=== PATIENT | female | born 1945 | race Caucasian/White ===

== ENCOUNTER → 2017-11-06 14:00 | Outpatient (CLI) | payer MEDICARE, SELFPAY ==
--- NOTE | 2017-11-06 14:08 | RAD_ITS ---
STUDY: X-RAY CHEST REASON FOR EXAM: Female, 72 years old. Persistent cough, recent pneumonia, CABG, pacemaker, DC. TECHNIQUE: PA and lateral views of the chest. COMPARISON: 08/30/2017 FINDINGS: Stable significant elevation of the right hemidiaphragm and platelike atelectasis in the right base. There is a stable left subclavian approach multilead permanent pacemaker. There are areas of hyperinflation. Stable mild interstitial prominence. There is no demonstrated pleural abnormality. Sternal cerclage wires are present from a prior sternotomy. There is borderline cardiac size. Normal mediastinum and april. Normal visualized pulmonary arteries. There is atherosclerotic calcification of the aortic arch with tortuosity. There are diffuse degenerative changes of the visualized thoracic spine. There is demineralization of osseous structures. There is degenerative osteoarthritis of the bilateral shoulders. Status post vertebral body upper lumbar spine. Status postcholecystectomy. There is no demonstrated abnormality of the visualized soft tissue structures of the upper abdomen. RAD/Chest PA and Lateral IMPRESSION: No pulmonary edema, congestive heart failure or confluent pneumonia. Stable chronic interstitial lung disease, elevation right hemidiaphragm, platelike right basilar atelectasis, Cardiac size and postsurgical changes. Stable osteoporosis and degenerative changes, interval vertebroplasty of upper lumbar spine. Electronically Signed: Jacquie Paredes MD at 2:29 EST , Service support ,
[2017-11-06 16:05] LABS: Absolute Lymphocyte Count 1.12 X10^3/ul (0.83-4.51); Basophil# 0.03 X10^3/uL; Basophil% 0.5 % (0-1); Eosinophil# 0.08 X10^3/uL; Eosinophils% 1.4 % (0-5); Hematocrit 40.9 % (37-47); Hemoglobin 13.2 g/dl (12.0-15.0); Lymphocyte # 1.12 X10^3/ul (4.0); Mean Corp Hgb Conc 32.3 g/gl (32-36); Mean Corpuscular Hgb 29.9 pg (27.0-32.0); Mean Corpuscular Volume 92.7 fL (81-99); Mean Platelet Vol. 13.8 fl (6.2-12.0); Monocyte# 0.64 X10^3/uL; Monocyte% 10.9 % (0-10); Neutrophil # 4.01 X10^3/uL (2.7-7.7); Neutrophil % 68.2 % (47-70); Platelet Count 142 K/mm3 (150-450); RBC Distribution Width SD 46.2 fl (35.1-43.9); Red Blood Count 4.41 M/mm3 (4.2-5.4); White Blood Count 5.9 K/mm3 (4.4-11.0)
[2017-11-06 16:08] LABS: POSITIVE COUNT NO; POSITIVE DIFFERENTIAL NO; POSITIVE MORPHOLOGY NO
[2017-11-06 16:15] LABS: ALB/GLOB Ratio 0.8 RATIO (0.9-2.4); AST(SGOT) 24 U/L (15-37); Alanine Aminotransfer ALT/SGPT 18 U/L (13-56); Albumin, Serum 3.3 g/dL (3.2-5.0); Alkaline Phosphatase 81 U/L (45-117); Anion Gap 8 (5-15); BUN 14 mg/dL (7-18); BUN/Creat Ratio 17.8 RATIO (10-20); Calcium,Total 8.9 mg/dL (8.5-10.1); Chloride 100 mmol/L (98-107); Creatinine, Serum 0.79 mg/dL (0.55-1.02); EST Glomerular Filtration Rate 76 mL/min (>60); Est Glom Filt Rate - Afr Amer 92 mL/min (>60); Globulin 3.9 g/dL (2.2-4.2); Glucose 149 mg/dL (74-106); Potassium 4.1 mmol/L (3.5-5.1); Protein, Total 7.2 g/dL (6.4-8.2); Sodium Level 139 mmol/L (136-145); Thyroid Stim Hormone (TSH) 1.02 uIU/mL (0.358-3.74); Uric Acid 7.7 mg/dL (2.6-6.0)
== END ==
PROVIDERS: Family Provider Family Medicine Geriatric Medicine; PCP Family Medicine Geriatric Medicine; Visit Provider Family Medicine Geriatric Medicine
DX: R05 Cough (principal); E11.9 Type 2 diabetes mellitus without complications; E55.9 Vitamin D deficiency, unspecified; I10 Essential (primary) hypertension; M10.9 Gout, unspecified
CPT/HCPCS: 36415; 71046; 80053; 82306; 84443; 84550; 85025

== ENCOUNTER 2018-04-26 15:44 | Observation (INO) | payer MEDICARE, SELFPAY ==
[2018-04-26] VITALS (10 sets, daily range): BP systolic 105–118; BP diastolic 53–78; PULSE 71–88; RESP 16–17; TEMP 37.1–37.6; O2SAT 89–98; BMI 30.8; BMI 31.4
--- NOTE | 2018-04-26 16:08 | ED.VISSUMM ---
- ER Visit Summary Date of Service: 04/26/18 Chief Complaint: Fever History of Present Illness: The patient is a 72 F here with spouse for fever and chills starting today. Reports thermometer read 109 orally before noon. No Tylenol or Motrin was taken. Patient admits to mild productive cough starting yesterday. However 2 days ago nausea with headache symptoms. No falls or head injuries. No visual changes. Denies any vomiting. Chronic diarrhea. Sometimes 3-4 day, sometimes none. None recently. Decreased urine output. Tolerating oral fluids. No chest pains or abdominal pain. States mild achy joints and the hips. Patient is on warfarin for unclear reasons. She does have antiphospholipid, however no clotting history. History of AICD with heart failure and OR with CABG procedure. Patient normally ambulates with a cane, some other states needing more assistance over the last couple days. No falls or injuries. Physical Examination: Vitals: Temp 99.6, pulse 71, respirations 16, blood pressure 105/78, 98% on room air. General: Alert and oriented ?3, no acute distress HEENT: Normocephalic, atraumatic. Moist mucosa membranes Neck: supple, nontender. Cardiovascular: Regular rate and rhythm, no murmurs Respiratory: Normal breath sounds, symmetric, no distress Abdomen: Soft, nontender, nondistended Extremities: Nontender, no edema, pulses intact ?4 Neuro: no focal neurological deficits. Test Results: WBC 6.3 hemoglobin 14.8. Creatinine 0.81. INR 1.4. Liver enzymes normal. Urine 25 leukocytes, negative nitrites, negative WBCs. Chest x-ray negative. CTA chest negative for PE or infiltrates. Emergency Department Course and Treatment: Patient 99.6 temperature on arrival. Nontoxic. Pulse ox is 98% on room air. Workup initiated. White count 6.3. EKG paced rhythm rate of [address] or T-wave changes. Chest x-ray negative for infiltrates. However on monitoring patient oxygen dropped to 89% on room air before ambulation. Urine noted leukocytes however no others findings for concerns for infection, she has no urine symptoms. She was subtherapeutic on her INR. CTA of the chest obtained due to hypoxemia results negative also. She is ambulated her oxygen dropped to 84% per nursing. Replaced back on oxygen O2 stable, no respiratory distress. However due to her hypoxemia with her upper respiratory symptoms she will need admission for further management. Discuss with hospitalist Dr. Friedman for admission. She does not meet sepsis criteria. Treatment Plan: [] Disposition: Admission Impression: 1. Acute bronchitis 2. Hypoxemia This note was generated with [employer] dictation software. It may contain incorrect words, spelling, and punctuation that were not noted in review of the chart prior to signing ED Disposition - Plan for ED Patient: Disposition: Acute Care Hospital [facility] Chief Complaint: Fever Diagnosis: Acute bronchitis, Hypoxemia Referrals: Ranjan Hyatt Chi, MD [Primary Care Provider] -
[2018-04-26] MEDS: Ondansetron 4 MG/2 ML Vial IV (16:26)
[2018-04-26 16:31] LABS: Absolute Lymphocyte Count 0.46 X10^3/ul (0.83-4.51); Absolute Neutrophil Count 4.8 X10^3/uL (2.0-7.7); Basophil# 0.02 X10^3/uL; Basophil% 0.3 % (0-1); Differential Indicated SCAN CRITERIA MET; Eosinophil# 0.01 X10^3/uL; Eosinophils% 0.2 % (0-5); Hematocrit 43.1 % (37-47); Hemoglobin 14.8 g/dl (12.0-15.0); Lymphocyte # 0.46 X10^3/ul (4.0); Lymphocyte % 7.3 % (19-41); Mean Corp Hgb Conc 34.3 g/gl (32-36); Mean Corpuscular Hgb 29.5 pg (27.0-32.0); Mean Platelet Vol. 11.7 fl (6.2-12.0); Monocyte# 0.96 X10^3/uL; Monocyte% 15.3 % (0-10); Neutrophil # 4.82 X10^3/uL (2.7-7.7); Neutrophil % 76.7 % (47-70); POSITIVE COUNT NO; POSITIVE DIFFERENTIAL YES; POSITIVE MORPHOLOGY NO; Platelet Count 146 K/mm3 (150-450); RBC Distribution Width CV 15.2 % (11.6-14.6); RBC Distribution Width SD 47.9 fl (35.1-43.9); Red Blood Count 5.01 M/mm3 (4.2-5.4); White Blood Count 6.3 K/mm3 (4.4-11.0)
[2018-04-26 16:35] LABS: International Normalized Ratio 1.4; Prothrombin Time (Protime)PT. 17.5 SECONDS (11.7-14.9)
[2018-04-26 16:39] LABS: ALB/GLOB Ratio 0.8 RATIO (0.9-2.4); AST(SGOT) 31 U/L (15-37); Alanine Aminotransfer ALT/SGPT 21 U/L (13-56); Albumin, Serum 3.2 g/dL (3.2-5.0); Alkaline Phosphatase 100 U/L (45-117); Anion Gap 12 (5-15); BUN 20 mg/dL (7-18); BUN/Creat Ratio 24.6 RATIO (10-20); Calcium,Total 8.4 mg/dL (8.5-10.1); Chloride 96 mmol/L (98-107); Creatinine, Serum 0.81 mg/dL (0.55-1.02); EST Glomerular Filtration Rate 73 mL/min (>60); Est Glom Filt Rate - Afr Amer 89 mL/min (>60); Estimated Creatinine Clearance 46.68 ml/min; Globulin 3.9 g/dL (2.2-4.2); Glucose 104 mg/dL (74-106); Potassium 3.9 mmol/L (3.5-5.1); Protein, Total 7.1 g/dL (6.4-8.2); Sodium Level 135 mmol/L (136-145)
[2018-04-26 16:48] LABS: Differential Comment SCANNED
[2018-04-26 17:54] LABS: Mucous, Urine 0 SEEN /hpf (<or=2+); Red Blood Cells-Urine 0 SEEN /hpf (0-5)
[2018-04-26 18:12] LABS: Color, Urine Yellow (Yellow); Glucose, Dipstick Normal (Normal); Ketone-Dipstick Negative (Negative); Leukocyte Esterase-Dipstick 25 /ul (Negative); Nitrite-Dipstick Negative (Negative); Occult Blood-Urine 25 /ul (Negative); Protein-Dipstick 15 mg/dl (Negative); Urine Bilirubin Dipstick Negative (Negative); Urine Clarity Clear (Clear); Urine Urobilinogen 1 mg/dl (Normal)
[2018-04-26 18:33] LABS: Bacteria RARE /hpf (None Seen); Squamous Epithelial Cells - UA 0-5 SEEN /hpf (5-10); White Blood Cells 0-5 SEEN /hpf (0-5)
--- NOTE | 2018-04-26 19:55 | HP.PCM_ITS ---
Problem List (1) Acute bronchitis Status: Acute (2) Cardiac pacemaker Status: Chronic (3) Automatic implantable cardiac defibrillator in situ Status: Chronic (4) Acute kidney failure Status: Chronic (5) Atherosclerosis of coronary artery bypass graft without angina pectoris Status: Chronic Qualifiers: Comment: CABG: RIVERA-Distal LAD, SVG-Prox LAD, SVG-OM1, SVG-Left PDA 12/2001; (6) Ischemic cardiomyopathy Status: Chronic (7) Chest pain, precordial Status: Chronic (8) Chronic systolic congestive heart failure Status: Chronic (9) Dyspnea on exertion Status: Chronic (10) HLD (hyperlipidemia) Status: Chronic (11) HTN (hypertension) Status: Chronic (12) Myocardial infarction Status: Chronic (13) H/O coronary artery bypass surgery Status: Chronic Comment: CABG: RIVERA-Distal LAD, SVG-Prox LAD, SVG-OM1, SVG- Left PDA 12/2001; (14) Hypercoagulable state, primary Status: Chronic (15) RBBB (right bundle branch block) Status: Chronic (16) Heart failure with reduced ejection fraction Status: Chronic (17) NSTEMI (non-ST elevated myocardial infarction) Status: Chronic (18) Pneumococcal pneumonia Status: Chronic (19) Severe sepsis Status: Chronic (20) Diabetes mellitus type 2 in obese Status: Chronic (21) HTN (hypertension) Status: Chronic Qualifiers: (22) Hyperlipidemia Status: Chronic Qualifiers: (23) Obesity Status: Chronic Qualifiers: (24) GERD (gastroesophageal reflux disease) Status: Chronic (25) Anti-phospholipid syndrome Status: Chronic (26) CAD (coronary artery disease) Status: Chronic Comment: Status post CABG, status post cardiac catheterization in December 2013 - showing adequate revascularization and recommended medical management (27) Syncope Status: Chronic Comment: Consider to be arrhythmic in etiology; status post ICD (28) Ischemic cardiomyopathy Status: Chronic Comment: With ejection fraction 40 % (29) CHF (congestive heart failure) Status: Chronic (30) Shock, unspecified Status: Chronic Comment: etiology unknown (31) Compression fracture of L3 lumbar vertebra Status: Chronic (32) ATN (acute tubular necrosis) Status: Chronic (33) Community acquired pneumonia of right middle lobe of lung Status: Chronic (34) CHF exacerbation Status: Chronic History of Present Illness Date of Admission: 04/26/18 Chief Complaint: Cough and fever for 3 days The patient is a 72 year old F with history of coronary artery disease status post CABG, ischemic cardiomyopathy with chronic systolic heart rate status post AICD, hypertension, antiphospholipid syndrome on Coumadin came to ER with fever for last 3 days. Patient has chronic cough but gotten worse in the last 3 to 4 days along with increased yellow sputum. Patient noticed temperature at home 109? today before noon which seems surprising and unrealistic and came to ER. Patient has chronic sinus symptoms but denies sore throat or postnasal drip. Patient has history of antiphospholipid syndrome and on Coumadin. INR was found 1.4. Patient had CTPA which did not show any acute PE/consolidation but chronic elevation of right hemidiaphragm. EKG shows paced rhythm [] Past Medical History Past Medical History (Chronic Problems): Chronic Problems (Last Reviewed 04/01/18 @ 13:24 by Marco Antonio Gimenez MD) Cardiac pacemaker (Chronic) Automatic implantable cardiac defibrillator in situ (Chronic) Acute kidney failure (Chronic) Atherosclerosis of coronary artery bypass graft without angina pectoris (Chronic ) CABG: RIVERA-Distal LAD, SVG-Prox LAD, SVG-OM1, SVG-Left PDA 12/2001; Ischemic cardiomyopathy (Chronic) Chest pain, precordial (Chronic) Chronic systolic congestive heart failure (Chronic) Dyspnea on exertion (Chronic) HLD (hyperlipidemia) (Chronic) HTN (hypertension) (Chronic) Myocardial infarction (Chronic) H/O coronary artery bypass surgery (Chronic) CABG: RIVERA-Distal LAD, SVG-Prox LAD, SVG-OM1, SVG-Left PDA 12/2001; Hypercoagulable state, primary (Chronic) RBBB (right bundle branch block) (Chronic) Heart failure with reduced ejection fraction (Chronic) NSTEMI (non-ST elevated myocardial infarction) (Chronic) Pneumococcal pneumonia (Chronic) Severe sepsis (Chronic) Diabetes mellitus type 2 in obese (Chronic) HTN (hypertension) (Chronic) Hyperlipidemia (Chronic) Obesity (Chronic) GERD (gastroesophageal reflux disease) (Chronic) Anti-phospholipid syndrome (Chronic) CAD (coronary artery disease) (Chronic) Status post CABG, status post cardiac catheterization in December 2013 - showing adequate revascularization and recommended medical management Syncope (Chronic) Consider to be arrhythmic in etiology; status post ICD Ischemic cardiomyopathy (Chronic) With ejection fraction 40 % CHF (congestive heart failure) (Chronic) Shock, unspecified (Chronic) etiology unknown Compression fracture of L3 lumbar vertebra (Chronic) ATN (acute tubular necrosis) (Chronic) Community acquired pneumonia of right middle lobe of lung (Chronic) CHF exacerbation (Chronic) Medical History: Medical History (Last Reviewed 04/01/18 @ 13:24 by Marco Antonio Gimenez MD) Automatic implantable cardiac defibrillator in situ (Chronic) Z95.810 Acute kidney failure (Chronic) N17.9 Atherosclerosis of coronary artery bypass graft without angina pectoris (Chronic ) I25.810 CABG: RIVERA-Distal LAD, SVG-Prox LAD, SVG-OM1, SVG-Left PDA 12/2001; Ischemic cardiomyopathy (Chronic) I25.5 Chest pain, precordial (Chronic) R07.2 Chronic systolic congestive heart failure (Chronic) I50.22 Dyspnea on exertion (Chronic) R06.09 HLD (hyperlipidemia) (Chronic) E78.5 HTN (hypertension) (Chronic) I10 Myocardial infarction (Chronic) I21.9 Hypercoagulable state, primary (Chronic) D68.59 RBBB (right bundle branch block) (Chronic) I45.10 Allergies latex Allergy (Severe, Verified 04/01/18 13:09) Swelling Home Medications: Ambulatory Orders Medication Instructions Recorded Ergocalciferol [Vitamin D] 50,000 unit PO QMONTH 05/09/16 Insulin Glargine,Hum.rec.anlog 40 unit SQ QHS 05/09/16 [Lantus] lisinopril 5 mg tablet 5 mg PO QDAY 08/19/17 Allopurinol [Zyloprim] 100 mg PO DAILYCM 08/29/17 Metformin HCl 500 mg PO DAILY 08/29/17 nitroglycerin 0.4 mg sublingual 0.4 mg SUBLINGUAL Q5M PRN 09/20/17 tablet aspirin 81 mg tablet,delayed 81 mg PO QDAY 10/02/17 release pravastatin 40 mg tablet 40 mg PO DAILY tab 10/02/17 warfarin 6 mg tablet 4 mg PO ONCE 10/02/17 furosemide 40 mg tablet 40 mg PO BID 03/25/18 gabapentin 600 mg tablet 600 mg PO QDAY 04/01/18 isosorbide mononitrate ER 60 mg 120 mg PO DAILY #180 tab 04/01/18 tablet,extended release 24 hr metoprolol succinate ER 25 mg 25 mg PO BID tab 04/01/18 tablet,extended release 24 hr Surgical History: Surgical History (Last Reviewed 04/01/18 @ 13:24 by Marco Antonio Gimenez MD) H/O coronary artery bypass surgery (Chronic) Z95.1 CABG: RIVERA-Distal LAD, SVG-Prox LAD, SVG-OM1, SVG-Left PDA 12/2001; History of left heart catheterization (LHC) Z98.890 LHC: 12/2002; 09/2007; 10/2008; 12/19/2013 Surgical History: appendectomy, cholecystectomy, coronary bypass surgery, hysterectomy, pacemaker implantation Smoking Status: Never smoker - *Family History Maternal Family History: Family History (Last Reviewed 04/01/18 @ 13:24 by Marco Antonio Gimenez MD) Mother CAD (coronary artery disease) Myocardial infarction, Onset Age: 62 Brother Myocardial infarction CAD (coronary artery disease) Sister Bone cancer Sister CAD (coronary artery disease) Myocardial infarction Hypertension History Items: Heart Disease Paternal Family History: Family History (Last Reviewed 04/01/18 @ 13:24 by Marco Antonio Gimenez MD) Mother CAD (coronary artery disease) Myocardial infarction, Onset Age: 62 Brother Myocardial infarction CAD (coronary artery disease) Sister Bone cancer Sister CAD (coronary artery disease) Myocardial infarction Hypertension History Items: Heart Disease, - - Father with anti-phospholipid syndrome Sibling Family History: Family History (Last Reviewed 04/01/18 @ 13:24 by Marco Antonio Gimenez MD) Mother CAD (coronary artery disease) Myocardial infarction, Onset Age: 62 Brother Myocardial infarction CAD (coronary artery disease) Sister Bone cancer Sister CAD (coronary artery disease) Myocardial infarction Hypertension History Items: Cancer, Heart Disease, - Review of Systems Constitutional: Reports: Chills, Fever, Weakness. Denies: Weight Change HEENT: Denies: Head Aches, Sinus Congestion, Sinus Drainage Cardiovascular: Denies: Chest Pain, Palpitations Respiratory: Reports: Cough, Sputum production. Denies: Shortness of breath at rest Gastrointestinal: Denies: Abdominal Pain, Nausea, Vomiting Genitourinary: Denies: Dysuria, Frequency, Hematuria, Hesitancy Musculoskeletal: Reports: Joint Pain. Denies: Joint Tenderness Skin: Denies: Rash, Wounds Neurological: Denies: Numbness, Tingling, Focal weakness Psychiatric: Reports: Anxiety. Denies: Depression, Homicidal Ideations, Suicidal Ideations Hematologic/ Lymphatic: Denies: Easy Bruising, Easy Bleeding VTE Information - Inpt Only VTE Present on Admission: No VTE Mechan Device Prophylaxis: None VTE Pharm Prophylaxis ordered?: Yes Patient Problems: Active and Suspected Problems (Last Reviewed 04/01/18 @ 13:24 by Marco Antonio Gimenez MD ) Acute bronchitis (Acute) - Physical Exam General: Alert, Oriented x3, Cooperative HEENT: Atraumatic, PERRLA, EOMI, Normocephalic Neck: Supple, No JVD, Negative Carotid Bruits Lungs: Clear to auscultation, No rhonchi, No rales, Diminished - On posterior half of right lung Cardiovascular: Regular rate, Normal S1, Normal S2, No murmurs, - - Paced rhythm Abdomen: Bowel Sounds Present, Soft, Non Tender, Non-Distended Extremities: No edema, Capillary Refill Less than 3 Seconds Skin: No rashes, No breakdown Musculoskeletal: No Tenderness to Palpation of Joints or Extremities, Arthritic Changes Neurological: Cranial nerves II-XII grossly intact Psych/Mental Status: Normal Affect, Appropriate Vital Signs Temp Pulse Resp BP Pulse Ox 99.6 F H 71 17 106/66 93 04/26/18 15:46 04/26/18 19:27 04/26/18 18:05 04/26/18 19:27 04/26/18 18:05 Oxygen Flow Rate (L/min) 2 Oxygen Delivery Method Nasal Cannula Weight: 163 lb Body Mass Index (BMI) 30.8 Finger Stick Blood Glucose 119 Laboratory Tests Past 24 Hrs 04/26/18 04/26/18 04/26/18 16:15 16:15 16:15 WBC 6.3 RBC 5.01 Hgb 14.8 Hct 43.1 MCV 86.0 MCH 29.5 MCHC 34.3 RDW 15.2 H RDW Differential 47.9 H Plt Count 146 L MPV 11.7 Immature Gran % (Auto) 0.200 Neut % (Auto) 76.7 H Lymph % (Auto) 7.3 L [place] % (Auto) 15.3 H Eos % (Auto) 0.2 Baso % (Auto) 0.3 Absolute Neuts (auto) 4.8 Absolute Lymphs (auto) 0.46 L Total Counted Not Reportable Differential Comment SCANNED PT 17.5 H INR 1.4 Sodium 135 L Potassium 3.9 Chloride 96 L Carbon Dioxide 27.0 Anion Gap 12 BUN 20 H Creatinine 0.81 Estim Creat Clear Calc 46.68 Est GFR (MDRD) Af Amer 89 Est GFR (MDRD) Non-Af 73 BUN/Creatinine Ratio 24.6 H Glucose 104 Calcium 8.4 L Total Bilirubin 1.40 H AST 31 ALT 21 Alkaline Phosphatase 100 Total Protein 7.1 Albumin 3.2 Globulin 3.9 Albumin/Globulin Ratio 0.8 L Urine Color Urine Clarity Urine pH Ur Specific [place] Urine Protein Urine Glucose (UA) Urine Ketones Urine Occult Blood Urine Nitrite Urine Bilirubin Urine Urobilinogen Ur Leukocyte Esterase Urine RBC Urine WBC Ur Squamous Epith Cells Urine Bacteria Urine Mucus 04/26/18 17:47 WBC RBC Hgb Hct MCV MCH MCHC RDW RDW Differential Plt Count MPV Immature Gran % (Auto) Neut % (Auto) Lymph % (Auto) [place] % (Auto) Eos % (Auto) Baso % (Auto) Absolute Neuts (auto) Absolute Lymphs (auto) Total Counted Differential Comment PT INR Sodium Potassium Chloride Carbon Dioxide Anion Gap BUN Creatinine Estim Creat Clear Calc Est GFR (MDRD) Af Amer Est GFR (MDRD) Non-Af BUN/Creatinine Ratio Glucose Calcium Total Bilirubin AST ALT Alkaline Phosphatase Total Protein Albumin Globulin Albumin/Globulin Ratio Urine Color Yellow Urine Clarity Clear Urine pH 7.0 Ur Specific [place] 1.010 Urine Protein 15 H Urine Glucose (UA) Normal Urine Ketones Negative Urine Occult Blood 25 H Urine Nitrite Negative Urine Bilirubin Negative Urine Urobilinogen 1 H Ur Leukocyte Esterase 25 H Urine RBC 0 SEEN Urine WBC 0-5 SEEN Ur Squamous Epith Cells 0-5 SEEN Urine Bacteria RARE Urine Mucus 0 SEEN Assessment/Plan All Active Problems (Last Reviewed 04/01/18 @ 13:24 by Marco Antonio Gimenez MD) Acute bronchitis (Acute) The patient is a 72 year old F with history of coronary artery disease status post CABG, ischemic cardiomyopathy with chronic systolic heart rate status post AICD, hypertension, antiphospholipid syndrome on Coumadin came to ER with fever for last 3 days. Patient has chronic cough but gotten worse in the last 3 to 4 days along with increased yellow sputum. Patient noticed temperature at home 109? today before noon which seems surprising and unrealistic and came to ER. Patient has chronic sinus symptoms but denies sore throat or postnasal drip. Patient has history of antiphospholipid syndrome and on Coumadin. INR was found 1.4. Patient had CTPA which did not show any acute PE/consolidation but chronic elevation of right hemidiaphragm. EKG shows paced rhythm 1. Fever with chills, possible secondary to acute bronchitis, viral/bacterial or noninfectious: The patient is being admitted as an observation. IV fluid normal saline. Monitor temperature curve. Started on IV Zithromax. If she spikes fever, blood cultures ?2 and add ceftriaxone. Monitor intake and output. Urinary antigens ordered. Flu test, MRSA nasal screen ordered. ESR and CRP ordered. INR is subtherapeutic so there is chance she might have DVT as cause of fever. Bilateral lower extremity venous Doppler ordered. 2. Antiphospholipid syndrome on Coumadin: Lovenox 1 mg/kg body weight as bridging until her INR is 2.5. 3. chronic systolic heart failure, with ischemic cardiomyopathy Patient has history of coronary artery disease with ischemic cardiomyopathy, EF 40% status post AICD. Patient had last echo in August 2017 shows EF 20%. Normal LV size. 1-2+ TR. Severe segmental systolic dysfunction significant decline in LV function as compared to previous Echo in December 2016 mild concentric LVH with EF 45%. No regional wall motion abnormalities. Being managed by Dr. gimenez continue cardiac medications 4 Coronary artery disease status post CABG, last cardiac cath in December 2013 showing adequate revascularization and on medical management.: Continue home medication 5. Diabetes mellitus type 2, good glycemic control complicated with diabetic neuropathy: On Lantus 40 units subcu nightly daily. Accu-Chek before meals and at bedtime and cover with NovoLog sliding scale. other chronic comorbidities including hypertension, dyslipidemia, GERD, and morbid obesity: Home medication reconciliation done. Code Visit OBSV E&M: [id number] Initial observation care L3
[2018-04-26 20:04] LABS: Erythrocyte Sedimentation Rate 41 mm/hr (0-30)
[2018-04-26] MEDS: 0.9% Normal Saline 1,000 ML 75 ML IV (23:01)
[2018-04-26] MEDS: Pravastatin 40 MG Tablet PO (23:02)
[2018-04-26] MEDS: guaiFENesin 1,200 MG Tablet 1200 MG PO (23:02)
[2018-04-26] MEDS: Aspirin E.C. 81 MG Tablet PO (23:02)
[2018-04-26] MEDS: Enoxaparin 80 MG/0.8 ML Syringe 70 MG SC (23:03)
[2018-04-26] MEDS: Famotidine 20 MG Tablet PO (23:11)
[2018-04-27] VITALS (8 sets, daily range): BP systolic 111–139; BP diastolic 64–84; PULSE 79–89; RESP 18; TEMP 36.6–37.6; O2SAT 93–98
[2018-04-27 00:15] LABS: Bedside Glucose 163 mg/dL (70-110)
[2018-04-27 02:10] LABS: M R Staph aureus DNA By PCR Negative (Negative); Probe Check PASS; Specimen Processing Control PASS
[2018-04-27] MEDS: 0.9% NaCl Peripheral Flush Adult/Peds IV (02:13)
[2018-04-27] MEDS: Ondansetron 4 MG/2 ML Vial IV (02:14)
[2018-04-27] MEDS: Enoxaparin 80 MG/0.8 ML Syringe 70 MG SC (06:11)
[2018-04-27 06:29] LABS: International Normalized Ratio 1.5
[2018-04-27 06:31] LABS: Basophil# 0.02 X10^3/uL; Basophil% 0.3 % (0-1); Eosinophil# 0.01 X10^3/uL; Eosinophils% 0.2 % (0-5); Hematocrit 42.3 % (37-47); Lymphocyte % 6.2 % (19-41); Mean Corp Hgb Conc 33.1 g/gl (32-36); Mean Corpuscular Hgb 28.7 pg (27.0-32.0); Mean Corpuscular Volume 86.7 fL (81-99); Mean Platelet Vol. 12.2 fl (6.2-12.0); Monocyte% 15.6 % (0-10); Neutrophil # 4.98 X10^3/uL (2.7-7.7); Neutrophil % 77.4 % (47-70); Platelet Count 126 K/mm3 (150-450); RBC Distribution Width CV 15.3 % (11.6-14.6); RBC Distribution Width SD 48.3 fl (35.1-43.9); Red Blood Count 4.88 M/mm3 (4.2-5.4); White Blood Count 6.4 K/mm3 (4.4-11.0)
[2018-04-27 06:34] LABS: POSITIVE COUNT NO; POSITIVE DIFFERENTIAL YES; POSITIVE MORPHOLOGY NO
[2018-04-27 06:36] LABS: Anion Gap 10 (5-15); BUN 16 mg/dL (7-18); BUN/Creat Ratio 21.8 RATIO (10-20); Calcium,Total 7.8 mg/dL (8.5-10.1); Chloride 100 mmol/L (98-107); Creatinine, Serum 0.73 mg/dL (0.55-1.02); EST Glomerular Filtration Rate 82 mL/min (>60); Est Glom Filt Rate - Afr Amer 100 mL/min (>60); Estimated Creatinine Clearance 37.81 ml/min; Glucose 107 mg/dL (74-106); Potassium 3.8 mmol/L (3.5-5.1); Sodium Level 135 mmol/L (136-145)
[2018-04-27 06:56] LABS: Bedside Glucose 91 mg/dL (70-110)
[2018-04-27 07:03] LABS: Differential Comment SCANNED; Differential Indicated SCAN CRITERIA MET
[2018-04-27] MEDS: Allopurinol 100 MG Tablet PO (08:11)
[2018-04-27] MEDS: Furosemide 40 MG Tablet PO (08:11)
[2018-04-27] MEDS: Acetaminophen 325 MG Tablet 650 MG PO (08:11)
--- NOTE | 2018-04-27 08:47 | CPS ---
Patient not interested in working on PEP therapy at this time.
--- NOTE | 2018-04-27 09:51 | PCM.PN.HOSP ---
Patient Problems: Active and Suspected Problems (Last Reviewed 04/01/18 @ 13:24 by Marco Antonio Sherwood MD) Acute bronchitis (Acute) Subjective: Just feeling weak but stated she was able to go to and from the bathroom without any difficulty. Vitals/I&O's: Vital Signs Temp Pulse Resp BP Pulse Ox 37.6 C H 84 18 139/84 H 98 04/27/18 08:44 04/27/18 08:44 04/27/18 08:44 04/27/18 08:44 04/27/18 08:44 Oxygen Flow Rate (L/min) 2 Oxygen Delivery Method Nasal Cannula Weight: 75.7 kg Body Mass Index (BMI) 31.4 Intake and Output for Last 24 Hours 04/25/18 04/26/18 04/27/18 23:59 23:59 23:59 Intake Total 1057 / 1057 Output Total 500 / 500 Balance 557 / 557 General: Alert, No apparent distress HEENT: Atraumatic, Normocephalic, - - Left frontal sinus tenderness Oral: Moist Mucosa, No Gingival or Mucosal Lesions/ Ulcerations Neck: No Nodes, Thyroid Normal Size and Texture Lungs: Clear to auscultation, Normal air movement, No rhonchi, No wheeze Cardiovascular: Regular rate, Regular Rhythm, Normal S1, Normal S2 Abdomen: Bowel Sounds Present, Soft, Non Tender, Non-Distended, No Hepato-splenomegaly Laboratory Results 04/26/18 22:11: POC Glucose 163 H 04/26/18 23:15: MRSA (PCR) Negative 04/27/18 05:30: WBC 6.4, RBC 4.88, Hgb 14.0, Hct 42.3, MCV 86.7, MCH 28.7, MCHC 33.1, RDW 15.3 H, RDW Differential 48.3 H, Plt Count 126 L, MPV 12.2 H, Immature Gran % (Auto) 0.300, Neut % (Auto) 77.4 H, Lymph % (Auto) 6.2 L, [place] % (Auto) 15.6 H, Eos % (Auto) 0.2, Baso % (Auto) 0.3, Absolute Neuts (auto) 5.0, Absolute Lymphs (auto) 0.40 L, Total Counted Not Reportable, Differential Comment SCANNED 04/27/18 05:30: Sodium 135 L, Potassium 3.8, Chloride 100, Carbon Dioxide 25.0, Anion Gap 10, BUN 16, Creatinine 0.73, Estim Creat Clear Calc 37.81, Est GFR (MDRD) Af Amer 100, Est GFR (MDRD) Non-Af 82, BUN/Creatinine Ratio 21.8 H, Glucose 107 H, Calcium 7.8 L 04/27/18 05:30: PT 18.0 H, INR 1.5 04/27/18 06:48: POC Glucose 91 Current Medications Acetaminophen (Tylenol) 650 mg PO Q4H PRN PRN PRN Reason: FEVER Last Admin: 04/27/18 08:11 Dose: 650 mg Acetaminophen (Tylenol) 650 mg PO Q4H PRN PRN PRN Reason: Mild-Moderate Pain/Headache Al Hydroxide/Mg Hydroxide (Mylanta Ii) 30 ml PO Q6H PRN PRN PRN Reason: Gastric Burning Albuterol/Ipratropium (Duoneb) 3 ml INHALATION Q4H PRN PRN PRN Reason: sob [facility] Last Admin: 04/27/18 08:11 Dose: 100 mg Aspirin (Ecotrin) 81 mg PO DAILY@2200 [facility] Last Admin: 04/26/18 23:02 Dose: 81 mg Docusate Sodium (Colace) 200 mg PO BID PRN PRN PRN Reason: Constipation Enoxaparin Sodium (Lovenox) 70 mg SC Q12@0600,1800 [facility] Last Admin: 04/27/18 06:11 Dose: 70 mg Ergocalciferol (Vitamin D) 50,000 unit PO QMONTH [facility] Famotidine (Pepcid) 20 mg PO BID [facility] Last Admin: 04/26/18 23:11 Dose: 20 mg Furosemide (Lasix) 40 mg PO BIDLX [facility] Last Admin: 04/27/18 08:11 Dose: 40 mg Gabapentin (Neurontin) 600 mg PO DAILY [facility] Guaifenesin (Mucinex) 1,200 mg PO BID [facility] Last Admin: 04/26/18 23:02 Dose: 1,200 mg Sodium Chloride () 1,000 mls @ 75 mls/hr IV .[id number] [facility] Stop: 04/27/18 09:54 Last Admin: 04/26/18 23:01 Dose: 75 mls/hr Azithromycin 500 mg/ Dextrose 255 mls @ 250 mls/hr IV Q24 [facility] Stop: 04/29/18 20:36 Last Admin: 04/26/18 23:01 Dose: 250 mls/hr Insulin Glargine (Lantus (Bkc)) 30 units SC QHS [facility] Last Admin: 04/26/18 23:02 Dose: 30 units Isosorbide Mononitrate (Imdur) 120 mg PO DAILY [facility] Lisinopril (Zestril) 5 mg PO DAILY [facility] Magnesium Hydroxide (Milk Of Magnesia) 30 ml PO DAILY PRN PRN PRN Reason: Constipation Nitroglycerin (Nitrostat) 0.4 mg SUBLINGUAL Q5M PRN PRN Reason: CHEST PAIN Ondansetron HCl (Zofran) 4 mg IV Q8H PRN PRN PRN Reason: NAUSEA Last Admin: 04/27/18 02:14 Dose: 4 mg Oxycodone HCl (Oxyir) 5 mg PO Q4H PRN PRN PRN Reason: Moderate Pain (pain scale 4-5) Pravastatin Sodium (Pravachol) 40 mg PO DAILY@2200 [facility] Last Admin: 04/26/18 23:02 Dose: 40 mg Sodium Chloride () 5 - 30 ml IV UD PRN PRN Reason: SALINE FLUSH Last Admin: 04/27/18 02:13 Dose: 10 ml Warfarin Sodium (Coumadin (Pbkc)) 6 mg PO DAILY@1700 [facility] Last Admin: 04/26/18 23:13 Dose: 6 mg Zolpidem Tartrate (Ambien (Generic)) 5 mg PO QHS PRN PRN PRN Reason: SLEEP Medical Necessity - Tobacco Use Smoking Status: Never smoker Tobacco Use: Secondhand Assessment/Plan All Active Problems (Last Reviewed 04/01/18 @ 13:24 by Marco Antonio Sherwood MD) Acute bronchitis (Acute) 1. Acute sinusitis May be complicating an acute bronchitis as well We will treat patient with Augmentin, even though this is prior to 10 days patient does have concomitant bronchitis we could certainly treat that as well. We will treat with a total of 5 days of therapy 2. Hypoxia Patient was noted to be 89% on room air. Will check inhibitory pulse ox. Patient drops to a percent or lower then patient will need home oxygen when you get that set up for her. 3. Acute bronchitis Prednisone, albuterol MDI as well as the Augmentin as above. Discharge home
[2018-04-27] MEDS: Famotidine 20 MG Tablet PO (09:52)
[2018-04-27] MEDS: Gabapentin 600 MG Tablet PO (09:52)
[2018-04-27] MEDS: Lisinopril 5 MG Tablet PO (09:52)
[2018-04-27] MEDS: guaiFENesin 1,200 MG Tablet 1200 MG PO (09:52)
--- NOTE | 2018-04-27 10:00 | PCM.DC ---
- Discharge Diagnoses Current Active Problems: Current Active and Chronic Problems (Last Reviewed 04/01/18 @ 13:24 by Marco Antonio Sherwood MD) Acute bronchitis (Acute) You will use the following diet at home:: No restrictions Your food should be the consistency of: Regular Your liquids should be the consistency of: Regular/Thin Discharge Activity: Return to Normal Activity Call your doctor if you observe: Fever of 101 or Higher, Shortness of breath Allergies/Adverse Reactions: Allergies latex Allergy (Severe, Verified 04/01/18 13:09) Swelling Medications to take at Discharge Ergocalciferol [Vitamin D] 50,000 unit PO QMONTH 05/09/16 Insulin Glargine,Hum.rec.anlog [Lantus] 40 unit SQ QHS 05/09/16 lisinopril 5 mg tablet 5 mg PO QDAY 08/19/17 Allopurinol [Zyloprim] 100 mg PO DAILY 08/29/17 nitroglycerin 0.4 mg sublingual tablet 0.4 mg SUBLINGUAL Q5M PRN 09/20/17 aspirin 81 mg tablet,delayed release 81 mg PO QHS 10/02/17 pravastatin 40 mg tablet 40 mg PO QHS tab 10/02/17 furosemide 40 mg tablet 80 mg PO DAILY 03/25/18 gabapentin 600 mg tablet 600 mg PO QDAY 04/01/18 isosorbide mononitrate ER 60 mg tablet,extended release 24 hr 120 mg PO DAILY #180 tab 04/01/18 metoprolol succinate ER 25 mg tablet,extended release 24 hr 25 mg PO BID tab 04/01/18 Warfarin [Coumadin] 4 mg PO DAILY 04/26/18 Albuterol Inhaler [Ventolin Hfa] 1 - 2 puff INHALATION Q4H PRN PRN #1 inhaler 04/27/18 Guaifenesin [Mucinex] 1,200 mg PO BID #10 tab 04/27/18 Metformin HCl 500 mg PO DAILY #0 04/27/18 Prednisone 4 tab PO DAILY #20 tab 04/27/18 The following prescriptions were given: Albuterol Inhaler [Ventolin Hfa] 1 - 2 puff INHALATION Q4H PRN PRN #1 inhaler PRN Reason: Shortness Of Breath Prednisone 4 tab PO DAILY #20 tab Guaifenesin [Mucinex] 1,200 mg PO BID #10 tab Primary Care Physician: Ranjan Hyatt Chi, MD [Primary Care Provider] - Please follow up with your Primary Care Physician in: 1-2 weeks Test Results: Test results from this visit will be discussed in further detail at your follow-up appointment, if applicable.
--- NOTE | 2018-04-27 10:03 | PCM.DC.SUM ---
Discharge Date and Diagnosis - Problem List Patient Problems: Active and Suspected Problems (Last Reviewed 04/01/18 @ 13:24 by Marco Antonio Sherwood MD) Acute bronchitis (Acute) Acute sinusitis (Acute) Date of Admission: 04/26/18 Date of Discharge: 04/27/18 - Primary Discharge Diagnosis Active and Suspected Problems (Last Reviewed 04/01/18 @ 13:24 by Marco Antonio Sherwood MD) Acute bronchitis (Acute) - Secondary Discharge Diagnosis Chronic Problems (Last Reviewed 04/01/18 @ 13:24 by Marco Antonio Sherwood MD) Cardiac pacemaker (Chronic) Automatic implantable cardiac defibrillator in situ (Chronic) Acute kidney failure (Chronic) Atherosclerosis of coronary artery bypass graft without angina pectoris (Chronic) CABG: RIVERA-Distal LAD, SVG-Prox LAD, SVG-OM1, SVG-Left PDA 12/2001; Ischemic cardiomyopathy (Chronic) Chest pain, precordial (Chronic) Chronic systolic congestive heart failure (Chronic) Dyspnea on exertion (Chronic) HLD (hyperlipidemia) (Chronic) HTN (hypertension) (Chronic) Myocardial infarction (Chronic) H/O coronary artery bypass surgery (Chronic) CABG: RIVERA-Distal LAD, SVG-Prox LAD, SVG-OM1, SVG-Left PDA 12/2001; Hypercoagulable state, primary (Chronic) RBBB (right bundle branch block) (Chronic) Heart failure with reduced ejection fraction (Chronic) NSTEMI (non-ST elevated myocardial infarction) (Chronic) Pneumococcal pneumonia (Chronic) Severe sepsis (Chronic) Diabetes mellitus type 2 in obese (Chronic) HTN (hypertension) (Chronic) Hyperlipidemia (Chronic) Obesity (Chronic) GERD (gastroesophageal reflux disease) (Chronic) Anti-phospholipid syndrome (Chronic) CAD (coronary artery disease) (Chronic) Status post CABG, status post cardiac catheterization in December 2013 - showing adequate revascularization and recommended medical management Syncope (Chronic) Consider to be arrhythmic in etiology; status post ICD Ischemic cardiomyopathy (Chronic) With ejection fraction 40 % CHF (congestive heart failure) (Chronic) Shock, unspecified (Chronic) etiology unknown Compression fracture of L3 lumbar vertebra (Chronic) ATN (acute tubular necrosis) (Chronic) Community acquired pneumonia of right middle lobe of lung (Chronic) CHF exacerbation (Chronic) Hospital Course and Treatment Imaging Results: Clinical Impression(s) from Imaging Studies Chest X-Ray 04/26/18 16:07 IMPRESSION: No acute cardiopulmonary disease Electronically Signed: Alex Schmidt DO at 17:07 EDT Tel , Service support , Chest CTA 04/26/18 17:40 IMPRESSION: Negative for pulmonary embolism or thoracic aortic dissection. Elevated right hemidiaphragm. Lungs are adequately inflated and clear. Cardiomegaly. Electronically Signed: Alex Schmidt DO at 18:20 EDT Tel , Service support , Operations: None Procedures: None Summary of Care Provided: The patient is a 72 year old F with fever. Documentation states that patient had temperature 109 the patient denies that saying that is probably 99 at home. Patient is feeling weak. Patient was noted to be hypoxic 89% on room air. Patient had a CTA of her chest that was negative for pulmonary embolism nor pneumonia. Patient did have some reproducible left sinus tenderness on exam. Given that her symptoms are less than 10 days but also felt that she may have component of bronchitis is elected to treat her with Augmentin as well as prednisone and albuterol. Patient did come in with subtherapeutic INR of 1.4. Patient has never had a history of venous thromboembolic disease but does have positive coagulopathy which is why she is on Coumadin. Patient does not require bridge for Coumadin but patient will have her INR checked in the next 1-2 weeks. I would recommend patient follow-up with hematology if she has not done so already. Would be interested to see if they feel that she should be on anticoagulation thromboembolic events before. [] Discharge Diet: Low fat/ Low Cholesterol, 1800 Calorie Control Diet, 6 Cup Fluid Restriction, 2000 mg Sodium Diet Discharge Activity: Return to Normal Activity Call your doctor if you observe: Fever of 101 or Higher, Shortness of breath Home Medications: Medications to take at Discharge Ergocalciferol [Vitamin D] 50,000 unit PO QMONTH 05/09/16 Insulin Glargine,Hum.rec.anlog [Lantus] 40 unit SQ QHS 05/09/16 lisinopril 5 mg tablet 5 mg PO QDAY 08/19/17 Allopurinol [Zyloprim] 100 mg PO DAILY 08/29/17 nitroglycerin 0.4 mg sublingual tablet 0.4 mg SUBLINGUAL Q5M PRN 09/20/17 aspirin 81 mg tablet,delayed release 81 mg PO QHS 10/02/17 pravastatin 40 mg tablet 40 mg PO QHS tab 10/02/17 furosemide 40 mg tablet 80 mg PO DAILY 03/25/18 gabapentin 600 mg tablet 600 mg PO QDAY 04/01/18 isosorbide mononitrate ER 60 mg tablet,extended release 24 hr 120 mg PO DAILY #180 tab 04/01/18 metoprolol succinate ER 25 mg tablet,extended release 24 hr 25 mg PO BID tab 04/01/18 Warfarin [Coumadin] 4 mg PO DAILY 04/26/18 Albuterol Inhaler [Ventolin Hfa] 1 - 2 puff INHALATION Q4H PRN PRN #1 inhaler 04/27/18 Amoxicillin/Potassium Clav [Augmentin 875-125 Tablet] 1 ea PO BID #10 tab 04/27/18 Guaifenesin [Mucinex] 1,200 mg PO BID #10 tab 04/27/18 Metformin HCl 500 mg PO DAILY #0 04/27/18 Prednisone 4 tab PO DAILY #20 tab 04/27/18 Following Prescrptions Were Given to Patient: Albuterol Inhaler [Ventolin Hfa] 1 - 2 puff INHALATION Q4H PRN PRN #1 inhaler PRN Reason: Shortness Of Breath Prednisone 4 tab PO DAILY #20 tab Amoxicillin/Potassium Clav [Augmentin 875-125 Tablet] 1 ea PO BID #10 tab Guaifenesin [Mucinex] 1,200 mg PO BID #10 tab Primary Care Physician: Ranjan Hyatt Chi, MD [Primary Care Provider] - Please follow up with your Primary Care Physician in: 1-2 weeks Medical Necessity - Tobacco Use Smoking Status: Never smoker Tobacco Use: Secondhand Meaningful Use Info Meaningful Use Diagnoses (Choose all that apply): None applicable Code Visit OBSV E&M: 87484 Observation care discharge
--- NOTE | 2018-04-27 11:06 | NURSING ---
Pt ambulated with walker and on room air spo2 @ 93 %. Spoke to pt spouse at home notified that pt has refused PT here in hospital and her baseline at home is she holds on furniture and walk also she does not use her walker nor cane at home. Spouse did sat at times pt ran out of air. Pt was able to walk with walker on room air.
== END 2018-04-27 15:15 | disposition home or self-care (01) ==
LOC: ED 19:22 → MS3 19:25
PROVIDERS: Admitting Provider Internal Medicine; Emergency Provider Emergency Medicine; Family Provider Family Medicine Geriatric Medicine; PCP Family Medicine Geriatric Medicine
DX: J20.9 Acute bronchitis, unspecified (principal); J01.90 Acute sinusitis, unspecified; I25.810 Atherosclerosis of coronary artery bypass graft(s) without angina pectoris; R09.02 Hypoxemia; I25.2 Old myocardial infarction; I50.22 Chronic systolic (congestive) heart failure; E78.5 Hyperlipidemia, unspecified; I11.0 Hypertensive heart disease with heart failure; I25.5 Ischemic cardiomyopathy; E11.9 Type 2 diabetes mellitus without complications; E66.9 Obesity, unspecified; K21.9 Gastro-esophageal reflux disease without esophagitis; D68.61 Antiphospholipid syndrome; Z95.810 Presence of automatic (implantable) cardiac defibrillator; Z79.899 Other long term (current) drug therapy; Z79.4 Long term (current) use of insulin; Z79.01 Long term (current) use of anticoagulants; Z79.82 Long term (current) use of aspirin; Z68.31 Body mass index [BMI] 31.0-31.9, adult; Z71.3 Dietary counseling and surveillance
CPT/HCPCS: 36415; 71046; 71275; 80048; 80053; 81001; 82962; 85025; 85610; 85652; 86140; 87449; 87633; 87641; 93005; 94667; 96361; 96365; 96366; 96372; 96375; 96376; 99218; 99285; J7030; J7040; Q9967; A4216; G0378; J2405

== ENCOUNTER → 2018-06-04 16:02 | Outpatient (CLI) | payer MEDICARE, SELFPAY ==
[2018-06-04 17:26] LABS: Vitamin D,25 Hydroxy 21.8 ng/mL (29.95-100.01)
[2018-06-04 17:37] LABS: Absolute Lymphocyte Count 0.78 X10^3/ul (0.83-4.51); Absolute Neutrophil Count 9.1 X10^3/uL (2.0-7.7); Basophil# 0.02 X10^3/uL; Basophil% 0.2 % (0-1); Eosinophil# 0.01 X10^3/uL; Eosinophils% 0.1 % (0-5); Lymphocyte # 0.78 X10^3/ul (4.0); Lymphocyte % 7.1 % (19-41); Mean Corp Hgb Conc 33.3 g/gl (32-36); Mean Corpuscular Hgb 29.8 pg (27.0-32.0); Mean Corpuscular Volume 89.3 fL (81-99); Mean Platelet Vol. 12.9 fl (6.2-12.0); Monocyte# 1.12 X10^3/uL; Monocyte% 10.2 % (0-10); Neutrophil # 9.07 X10^3/uL (2.7-7.7); Neutrophil % 82.3 % (47-70); Platelet Count 203 K/mm3 (150-450); RBC Distribution Width CV 15.3 % (11.6-14.6); RBC Distribution Width SD 49.7 fl (35.1-43.9); Red Blood Count 5.04 M/mm3 (4.2-5.4)
[2018-06-04 17:42] LABS: ALB/GLOB Ratio 0.7 RATIO (0.9-2.4); AST(SGOT) 28 U/L (15-37); Alanine Aminotransfer ALT/SGPT 32 U/L (13-56); Albumin, Serum 3.3 g/dL (3.2-5.0); Alkaline Phosphatase 120 U/L (45-117); Anion Gap 13 (5-15); BUN 32 mg/dL (7-18); BUN/Creat Ratio 30.2 RATIO (10-20); Calcium,Total 9.1 mg/dL (8.5-10.1); Chloride 97 mmol/L (98-107); Creatinine, Serum 1.06 mg/dL (0.55-1.02); EST Glomerular Filtration Rate 54 mL/min (>60); Est Glom Filt Rate - Afr Amer 65 mL/min (>60); Globulin 4.6 g/dL (2.2-4.2); Glucose 318 mg/dL (74-106); Potassium 4.7 mmol/L (3.5-5.1); Protein, Total 7.9 g/dL (6.4-8.2); Sodium Level 134 mmol/L (136-145); Thyroid Stim Hormone (TSH) 0.62 uIU/mL (0.358-3.74); Uric Acid 5.3 mg/dL (2.6-6.0)
[2018-06-04 17:47] LABS: POSITIVE COUNT NO; POSITIVE DIFFERENTIAL NO; POSITIVE MORPHOLOGY NO
== END ==
PROVIDERS: Family Provider Family Medicine Geriatric Medicine; PCP Family Medicine Geriatric Medicine; Visit Provider Family Medicine Geriatric Medicine
DX: E11.9 Type 2 diabetes mellitus without complications (principal); E55.9 Vitamin D deficiency, unspecified; I10 Essential (primary) hypertension; M10.9 Gout, unspecified
CPT/HCPCS: 36415; 80053; 82306; 84443; 84550; 85025

== ENCOUNTER → 2018-08-21 16:15 | Outpatient (CLI) | payer MEDICARE, SELFPAY ==
[2018-07-18 15:20] VITALS: BMI 32.0
[2018-08-21 17:28] LABS: Absolute Lymphocyte Count 1.26 X10^3/ul (0.83-4.51); Absolute Neutrophil Count 4.4 X10^3/uL (2.0-7.7); Basophil# 0.04 X10^3/uL; Basophil% 0.6 % (0-1); Eosinophil# 0.11 X10^3/uL; Eosinophils% 1.7 % (0-5); Hematocrit 44.3 % (37-47); Hemoglobin 14.1 g/dl (12.0-15.0); Lymphocyte # 1.26 X10^3/ul (4.0); Lymphocyte % 19.8 % (19-41); Mean Corp Hgb Conc 31.8 g/gl (32-36); Mean Corpuscular Hgb 29.6 pg (27.0-32.0); Mean Corpuscular Volume 93.1 fL (81-99); Mean Platelet Vol. 12.5 fl (6.2-12.0); Monocyte# 0.52 X10^3/uL; Monocyte% 8.2 % (0-10); Neutrophil # 4.44 X10^3/uL (2.7-7.7); Neutrophil % 69.7 % (47-70); Platelet Count 220 K/mm3 (150-450); RBC Distribution Width CV 13.8 % (11.6-14.6); RBC Distribution Width SD 46.9 fl (35.1-43.9); Red Blood Count 4.76 M/mm3 (4.2-5.4); White Blood Count 6.4 K/mm3 (4.4-11.0)
[2018-08-21 17:31] LABS: POSITIVE COUNT NO; POSITIVE DIFFERENTIAL NO; POSITIVE MORPHOLOGY NO
[2018-08-21 17:51] LABS: Anion Gap 9 (5-15); BUN 17 mg/dL (7-18); BUN/Creat Ratio 22.4 RATIO (10-20); Calcium,Total 8.8 mg/dL (8.5-10.1); Chloride 102 mmol/L (98-107); Creatinine, Serum 0.76 mg/dL (0.55-1.02); EST Glomerular Filtration Rate 79 mL/min (>60); Est Glom Filt Rate - Afr Amer 96 mL/min (>60); Glucose 130 mg/dL (74-106); Potassium 3.5 mmol/L (3.5-5.1); Sodium Level 140 mmol/L (136-145)
== END ==
PROVIDERS: Family Provider Family Medicine Geriatric Medicine; PCP Family Medicine Geriatric Medicine; Visit Provider Family Medicine Geriatric Medicine
DX: R11.0 Nausea (principal); R55 Syncope and collapse
CPT/HCPCS: 36415; 80048; 85025

== ENCOUNTER → 2018-08-21 17:56 | Outpatient (CLI) | payer MEDICARE, SELFPAY ==
[2018-07-18 15:20] VITALS: BMI 32.0
--- NOTE | 2018-08-21 18:20 | RAD_ITS ---
STUDY: X-RAY - LUMBAR SPINE REASON FOR EXAM: Female, 73 years old. Lower back pain after a recent fall TECHNIQUE: 3 view(s) of the lumbar spine were obtained. COMPARISON: 05/09/2016 FINDINGS: Normal lumbar lordosis. There is no substantial scoliosis. There is a normal alignment of the vertebrae. There is diffuse demineralization with multi-level endplate spondylosis. New mild compression deformity involving the superior endplate of L1 as compared to the prior study. Residual compression deformity of L2 and L3 as well as L5 overall similar since the prior study. There is also mild relative compression of L4 when compared to the prior study. Vertebral augmentation segment of L3 is similar distribution as compared to prior study. Similar multilevel degenerative disc disease since the prior study. Cardiac conduction device is noted. There is atherosclerotic calcification of the abdominal aorta without a demonstrated aneurysm. RAD/Lumbar Spine 2 or 3 Views IMPRESSION: 1. New compression fracture of L1 and possibly L4. Recommend additional evaluation with bone scan and/or CT to further assess for acuity. 2. L3 vertebral augmentation with residual compression deformity. Electronically Signed: Cody Avalos MD at 9:16 EST , Service support ,
== END ==
PROVIDERS: Family Provider Family Medicine Geriatric Medicine; PCP Family Medicine Geriatric Medicine; Visit Provider Family Medicine Geriatric Medicine
DX: M54.5 Low back pain (principal); R11.0 Nausea; R55 Syncope and collapse
CPT/HCPCS: 36415; 72100; 80048; 85025

== ENCOUNTER 2018-09-02 17:06 | Inpatient (IN) | payer MEDICARE, SELFPAY ==
[2018-07-18 15:20] VITALS: BMI 32.0
[2018-09-02] VITALS (11 sets, daily range): BP systolic 121–134; BP diastolic 72–76; PULSE 68–76; RESP 16–28; TEMP 36.8–37.2; O2SAT 94–100; BMI 35.4; BMI 34.5; BMI 34.6
--- NOTE | 2018-09-02 17:14 | EKG12_ITS ---
Test Reason : CP ADMIT Blood Pressure : / mmHG Vent. Rate : 069 BPM Atrial Rate : 069 BPM P-R Int : 102 ms QRS Dur : 168 ms QT Int : 502 ms P-R-T Axes : 027 -84 090 degrees QTc Int : 537 ms Atrial-sensed ventricular-paced rhythm Biventricular pacemaker detected Abnormal ECG Confirmed by SYDNEE SALGADO, MARCO ANTONIO ([id number]), editor farm journal ROSITA PATRICIA ([id number] on 09/05/2018 2:46:27 PM Referred By: DR MIN Confirmed By:MARCO ANTONIO RANDHAWA MD
--- NOTE | 2018-09-02 17:16 | ED.DCSUM_ITS ---
- ER Visit Summary Date of Service: 09/02/18 Chief Complaint: Chest pain, shortness of breath History of Present Illness: The patient is a 73 F with history of coronary vascular disease status post four-vessel CABG 13 years ago presents to the emergency department chest pain dyspnea. Patient states that she had a mechanical fall the week before [place]. She states she did strike her left side of the chest. She actually followed up Dr. Hyatt. She states she was given some pain medication and actually did much better. Over the weekend, she began to have some chest tightness in the left side and worsening shortness of breath. States the pain will wax and wane. She has had similar pain before. She denies any fevers or chills. She had a nonproductive cough. She denies any leg swelling. She is been compliant with all of her medications. The patient does follow with Dr. Sherwood. She does not think she had a recent stress test. She is on Coumadin. Physical Examination: Vital signs reviewed General: Well-nourished, well-developed Head: Normocephalic, atraumatic Eyes: Pupils equal and reactive, extraocular muscles intact Neck, supple, no lymphadenopathy Heart: Regular rate and rhythm Respiratory: No distress, clear bilaterally Abdomen: Soft, nontender, nondistended, no peritoneal signs Back: Nontender Extremities: Nontender, no edema, no cords Skin: Normal color no rash Neuro: Alert and oriented, no focal or lateralizing deficits Test Results: [] Emergency Department Course and Treatment: The patient presents with cough and shortness of breath. She is also had significant chest pain. She does have a long-standing history of coronary vascular disease. EKG showed paced rhythm. The patient was placed on topical nitro. She had total resolution of pain. Screening labs are unremarkable. X-ray shows no focal infiltrate. Given the patient's history of significant coronary vascular disease, I do feel that she can require observation. The patient was discussed with the hospitalist and she will be admitted. Treatment Plan: [] Disposition: Observation Impression: 1. Chest pain with history of coronary vascular disease This note was generated with [employer] software. It may contain incorrect words, spelling, and punctuation that were not noted in review of the chart prior to signing ED Disposition - Plan for ED Patient: Disposition: Acute Care Hospital [facility] Chief Complaint: Chest Pain
[2018-09-02] MEDS: Ondansetron 4 MG/2 ML Vial IV (17:20)
[2018-09-02] MEDS: Nitroglycerin Oint 1 INCH PACKET TRANSDERM. ×2 (17:20→23:09)
--- NOTE | 2018-09-02 17:34 | RAD_ITS ---
STUDY: X-RAY CHEST REASON FOR EXAM: Female, 73 years old. Chest pain/pressure TECHNIQUE: Single AP portable view of the chest. COMPARISON: 04/26/2018 FINDINGS: EKG leads overlie the chest. Stable appearance of a left subclavian pacemaker. Stable elevation of the right hemidiaphragm Lungs are expanded. Left lung is clear. There is opacification in the right lung base with air bronchograms suggesting infiltrate. Follow-up recommended to assure resolution. There is no demonstrated pleural abnormality. Sternal cerclage wires and vascular clips are present from a prior sternotomy and coronary artery bypass graft procedure (CABG). Normal mediastinum and april. Normal visualized pulmonary arteries. Normal visualized aortic arch and descending thoracic aorta. There are diffuse degenerative changes of the visualized thoracic spine. There is degenerative osteoarthritis of the bilateral shoulders. There is no demonstrated abnormality of the visualized soft tissue structures of the upper abdomen. RAD/Chest 1 View (Portable) IMPRESSION: Stable elevation of the right hemidiaphragm, right lower lobe infiltrate. Follow-up recommended to assure resolution Remote CABG Electronically Signed: Kwan Mike MD at 18:10 EST , Service support ,
[2018-09-02 17:39] LABS: International Normalized Ratio 2.3; Prothrombin Time (Protime)PT. 25.6 SECONDS (11.7-14.9)
[2018-09-02 17:47] LABS: Anion Gap 8 (5-15); BUN 21 mg/dL (7-18); BUN/Creat Ratio 28.2 RATIO (10-20); Calcium,Total 8.8 mg/dL (8.5-10.1); Chloride 102 mmol/L (98-107); Creatinine, Serum 0.74 mg/dL (0.55-1.02); EST Glomerular Filtration Rate 81 mL/min (>60); Est Glom Filt Rate - Afr Amer 98 mL/min (>60); Estimated Creatinine Clearance 35.45 ml/min; Glucose 245 mg/dL (74-106); Sodium Level 140 mmol/L (136-145)
[2018-09-02 17:51] LABS: Absolute Lymphocyte Count 0.96 X10^3/ul (0.83-4.51); Absolute Neutrophil Count 5.4 X10^3/uL (2.0-7.7); Basophil# 0.04 X10^3/uL; Basophil% 0.6 % (0-1); Eosinophil# 0.11 X10^3/uL; Eosinophils% 1.5 % (0-5); Hematocrit 43.7 % (37-47); Hemoglobin 13.8 g/dl (12.0-15.0); Lymphocyte # 0.96 X10^3/ul (4.0); Lymphocyte % 13.3 % (19-41); Mean Corp Hgb Conc 31.6 g/gl (32-36); Mean Corpuscular Hgb 29.5 pg (27.0-32.0); Mean Corpuscular Volume 93.4 fL (81-99); Mean Platelet Vol. 12.3 fl (6.2-12.0); Monocyte# 0.74 X10^3/uL; Monocyte% 10.2 % (0-10); Neutrophil # 5.39 X10^3/uL (2.7-7.7); Neutrophil % 74.4 % (47-70); POSITIVE COUNT NO; POSITIVE DIFFERENTIAL NO; POSITIVE MORPHOLOGY NO; Platelet Count 167 K/mm3 (150-450); RBC Distribution Width SD 47.1 fl (35.1-43.9); Red Blood Count 4.68 M/mm3 (4.2-5.4); White Blood Count 7.2 K/mm3 (4.4-11.0)
--- NOTE | 2018-09-02 18:09 | NURSING ---
PCU CP OBS WHITE
[2018-09-02 18:20] LABS: BNP,B-Type NATRIURETIC PEPTIDE 1069.1 pg/mL (0-100)
--- NOTE | 2018-09-02 18:31 | HP.PCM_ITS ---
Problem List (1) Chest pain Status: Acute Qualifiers: Chest pain type: unspecified Qualified Code(s): R07.9 - Chest pain, unspecified (2) Secondary pulmonary arterial hypertension Status: Chronic (3) Essential (primary) hypertension Status: Chronic (4) Automatic implantable cardiac defibrillator in situ Status: Chronic (5) Atherosclerosis of coronary artery bypass graft without angina pectoris Status: Chronic Qualifiers: Comment: CABG: RIVERA-Distal LAD, SVG-Prox LAD, SVG-OM1, SVG-Left PDA 12/2001; (6) Ischemic cardiomyopathy Status: Chronic (7) Chronic systolic congestive heart failure Status: Chronic (8) HLD (hyperlipidemia) Status: Chronic Qualifiers: Hyperlipidemia type: unspecified Qualified Code(s): E78.5 - Hyperlipidemia, unspecified (9) H/O coronary artery bypass surgery Status: Resolved Comment: CABG: RIVERA-Distal LAD, SVG-Prox LAD, SVG-OM1, SVG- Left PDA 12/2001; (10) Hypercoagulable state, primary Status: Chronic (11) Obesity Status: Chronic Qualifiers: Obesity type: unspecified obesity type Obesity classification: adult class 2 (BMI 35 - 39.9) Serious obesity comorbidity presence: with serious comorbidity Body mass index: BMI 35.0-35.9 Qualified Code(s): E66.01 - Morbid (severe) obesity due to excess calories; Z68.35 - Body mass index (BMI) 35.0-35.9, adult (12) Anti-phospholipid syndrome Status: Chronic History of Present Illness Date of Admission: 09/02/18 Chief Complaint: Chest pain The patient is a 73 y/o F w/ PMHx: Chronic Systolic CHF/Ischemic Cardiomyopathy s/p AICD/Pacemaker, CAD s/p CABG x 4, HTN, HLD, GERD, Obesity, Anti-phospholipid syndrome on coumadin therapy, Diabetes mellitus type II who presents to the [facility] ED on 09/02/17 with history of onset left-sided and substernal chest pressure with difficulty rating as she notes that it is not consistent with pain with onset with exertion with associated shortness of breath and mild nausea with increased above moderate effort with resolution with rest with no improvement with home nitroglycerin sublingual therapies ongoing times 3 days. In the ED patient administered additional NG SL without effect but then applied TD NG paste with resolution of pressure sensation, again patient unable to rate and denies any pain. In the ED work-up included T 98.4, heart rate 70, BP 122/73, patellar rate 19, 96% on 2 L nasal cannula, CBC with WBC 7.2, hemoglobin 13.8, platelets 167, INR 2.3, BUN/creatinine 21/0.74, glucose 245, troponin 0.038, BNP 1069.1 (prior visits noting frequent elevations > 500), chest x-ray with stable elevation right hemidiaphragm with questionable right lower lobe infiltrate versus atelectasis and evidence of remote CABG. 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 angina pectoris (Chronic) CABG: RIVERA-Distal LAD, SVG-Prox LAD, SVG-OM1, SVG-Left PDA 12/2001; Ischemic cardiomyopathy (Chronic) Chronic systolic congestive heart failure (Chronic) Dyspnea on exertion (Chronic) HLD (hyperlipidemia) (Chronic) Myocardial infarction (Chronic) Hypercoagulable state, primary (Chronic) RBBB (right bundle branch block) (Chronic) NSTEMI (non-ST elevated myocardial infarction) (Chronic) Obesity (Chronic) Anti-phospholipid syndrome (Chronic) Medical History: Medical History (Last Reviewed 07/18/18 @ 15:36 by Marco Antonio Sherwood MD) Secondary pulmonary arterial hypertension (Chronic) I27.21 Essential (primary) hypertension (Chronic) I10 Acute kidney failure (Chronic) N17.9 Atherosclerosis of coronary artery bypass graft without angina pectoris (Chronic) I25.810 CABG: RIVERA-Distal LAD, SVG-Prox LAD, SVG-OM1, SVG-Left PDA 12/2001; Ischemic cardiomyopathy (Chronic) I25.5 Chronic systolic congestive heart failure (Chronic) I50.22 Dyspnea on exertion (Chronic) R06.09 HLD (hyperlipidemia) (Chronic) E78.5 Myocardial infarction (Chronic) I21.9 Hypercoagulable state, primary (Chronic) D68.59 RBBB (right bundle branch block) (Chronic) I45.10 NSTEMI (non-ST elevated myocardial infarction) (Chronic) I21.4 Obesity (Chronic) E66.9 Anti-phospholipid syndrome (Chronic) D68.61 Compression fracture of lumbar vertebra S32.000A GERD (gastroesophageal reflux disease) K21.9 Type 2 diabetes mellitus E11.9 Chest pain, precordial (Resolved) R07.2 Sepsis A41.9 Syncope R55 Allergies latex Allergy (Severe, Verified 07/18/18 14:05) Swelling Home Medications: Ambulatory Orders Medication Instructions Recorded Ergocalciferol [Vitamin D] 50,000 unit PO QMONTH 05/09/16 Insulin Glargine,Hum.rec.anlog 40 unit SQ QHS 05/09/16 [Lantus] lisinopril 5 mg tablet 5 mg PO QDAY 08/19/17 Allopurinol [Zyloprim] 100 mg PO DAILY 08/29/17 nitroglycerin 0.4 mg sublingual 0.4 mg SUBLINGUAL Q5M PRN 09/20/17 tablet aspirin 81 mg tablet,delayed 81 mg PO QHS 10/02/17 release pravastatin 40 mg tablet 80 mg PO QHS tab 10/02/17 furosemide 40 mg tablet 80 mg PO DAILY 03/25/18 gabapentin 600 mg tablet 600 mg PO QDAY 04/01/18 metoprolol succinate ER 25 mg 25 mg PO BID tab 04/01/18 tablet,extended release 24 hr Warfarin [Coumadin] 4 mg PO DAILY 04/26/18 Albuterol Inhaler [Ventolin Hfa] 1 - 2 puff INHALATION Q4H PRN PRN 04/27/18 #1 inhaler Amoxicillin/Potassium Clav 1 ea PO BID #10 tab 04/27/18 [Augmentin 875-125 Tablet] Guaifenesin [Mucinex] 1,200 mg PO BID #10 tab 04/27/18 Metformin HCl 500 mg PO DAILY #0 04/27/18 Prednisone 4 tab PO DAILY #20 tab 04/27/18 Colchicine [Colcrys] 0.6 mg PO DAILY 09/02/18 Isosorbide Mononitrate [Isosorbide 60 mg PO DAILY 09/02/18 Mononitrate ER] Paroxetine HCl [Paxil] 20 mg PO QHS 09/02/18 Ranitidine [Zantac] 150 mg PO DAILY 09/02/18 Simvastatin [Zocor] 20 mg PO QHS 09/02/18 Surgical History: Surgical History (Last Reviewed 07/18/18 @ 15:36 by Marco Antonio Sherwood MD) Automatic implantable cardiac defibrillator in situ (Chronic) Onset Date: 12/21/13 Z95.810 H/O coronary artery bypass surgery (Resolved) Onset Date: 12/02/01 Z95.1 CABG: RIVERA-Distal LAD, SVG-Prox LAD, SVG-OM1, SVG-Left PDA 12/2001; History of left heart catheterization (LHC) Onset Date: 12/18/13 Z98.890 LHC: 12/2002; 09/2007; 10/2008; 12/19/2013 Surgical History: appendectomy, cholecystectomy, coronary bypass surgery, hysterectomy, pacemaker implantation Psychiatric History: No pertinent psych hx 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 OF PROGRAM History: No pertinent MANAGER OF PROGRAM history Lives: Spouse/ Significant Other Smoking Status: Never smoker Tobacco Use: Non-smoker Alcohol: None Drugs: None - *Family History Maternal Family History: Family History (Last Reviewed 07/18/18 @ 15:36 by Marco Antonio Sherwood MD) Mother CAD (coronary artery disease) Myocardial infarction, Onset Age: 62 Brother Myocardial infarction CAD (coronary artery disease) Sister Bone cancer Sister CAD (coronary artery disease) Myocardial infarction Hypertension History Items: Heart Disease Paternal Family History: Family History (Last Reviewed 07/18/18 @ 15:36 by Marco Antonio Sherwood MD) Mother CAD (coronary artery disease) Myocardial infarction, Onset Age: 62 Brother Myocardial infarction CAD (coronary artery disease) Sister Bone cancer Sister CAD (coronary artery disease) Myocardial infarction Hypertension History Items: Heart Disease, - - Father with anti-phospholipid syndrome Sibling Family History: Family History (Last Reviewed 07/18/18 @ 15:36 by Marco Antonio Sherwood MD) Mother CAD (coronary artery disease) Myocardial infarction, Onset Age: 62 Brother Myocardial infarction CAD (coronary artery disease) Sister Bone cancer Sister CAD (coronary artery disease) Myocardial infarction Hypertension History Items: Cancer, Heart Disease, - Review of Systems Constitutional: Reports: Malaise, Weakness, Fatigue. Denies: Chills, Fever, Weight Change HEENT: Denies: Head Aches, Sinus Congestion, Sinus Drainage Cardiovascular: Reports: Chest Pressure. Denies: Chest Pain, Chest Tightness, Heaviness, Light Headedness, Orthopnea, Palpitations, Paroxysmal Noc. Dyspnea, Syncope Respiratory: Reports: Cough - Notes mild cough, non-productive., Shortness of Breath, Shortness of breath upon exertion. Denies: Shortness of breath at rest, Sputum production Gastrointestinal: Denies: Abdominal Pain, Nausea, Vomiting Genitourinary: Denies: Dysuria Musculoskeletal: Reports: Joint Pain. Denies: Joint Tenderness Skin: Denies: Rash, Wounds Neurological: Denies: Numbness, Tingling, Focal weakness Psychiatric: Denies: Anxiety, Depression, Homicidal Ideations, Suicidal Ideations Hematologic/ Lymphatic: Reports: Easy Bruising, Easy Bleeding VTE Information - Inpt Only VTE Present on Admission: No VTE Mechan Device Prophylaxis: SCD's VTE Pharm Prophylaxis ordered?: No Reason prophylaxis not ordered:: Medical Contraindication Patient Problems: Active and Suspected Problems (Last Reviewed 07/18/18 @ 15:36 by Marco Antonio Sherwood MD) Chest pain (Acute) Subjective: Patient seated upright in ED bed, no acute distress, denies any current chest pressure and notes has resolved. Objective: Physical Examination: General: awake, alert, oriented x 3 and cooperative, seated upright in the ED bed in no apparent distress. Skin: normal color, turgor, no icterus, cyanosis. HEENT: AT/NC, EOMI, PERRLA, MMM, no carotid bruits or JVD noted. Lungs: Diminished BS BL bases, moderate effort, no rales, ronchi or wheezing. Heart: Regular rate and rhythm (paced); no gallop, rub audible. Abdomen: soft, obese, NTTP, ND, normal BS, no HSM. Extremities: no cyanosis, clubbing, mild ankle edema. Neurological: patient awake, alert, oriented x 3; cognitive function intact; pupils equally reactive to light and accomodation; cranial nerves II-XII grossly normal, moving all 4 extremities, no focal deficits, strength mildly globally decreased. Psychiatric: affect appears normal, no acute evidence of depressive or anxiety feelings. - Physical Exam Vital Signs Temp Pulse Resp BP Pulse Ox 98.4 F 70 19 H 122/73 H 96 09/02/18 18:11 09/02/18 18:11 09/02/18 18:11 09/02/18 18:11 09/02/18 18:11 Oxygen Flow Rate (L/min) 2 Oxygen Delivery Method Nasal Cannula Weight: 181 lb 10.574 oz Body Mass Index (BMI) 35.4 Finger Stick Blood Glucose 119 Laboratory Tests Past 24 Hrs 09/02/18 09/02/18 09/02/18 17:20 17:20 17:20 WBC 7.2 RBC 4.68 Hgb 13.8 Hct 43.7 MCV 93.4 MCH 29.5 MCHC 31.6 L RDW 14.0 RDW Differential 47.1 H Plt Count 167 MPV 12.3 H Immature Gran % (Auto) 0.000 Neut % (Auto) 74.4 H Lymph % (Auto) 13.3 L [place] % (Auto) 10.2 H Eos % (Auto) 1.5 Baso % (Auto) 0.6 Absolute Neuts (auto) 5.4 Absolute Lymphs (auto) 0.96 Total Counted Not Reportable PT 25.6 H INR 2.3 Sodium 140 Potassium 4.0 Chloride 102 Carbon Dioxide 30.0 Anion Gap 8 BUN 21 H Creatinine 0.74 Estim Creat Clear Calc 35.45 Est GFR (MDRD) Af Amer 98 Est GFR (MDRD) Non-Af 81 BUN/Creatinine Ratio 28.2 H Glucose 245 H Calcium 8.8 Troponin I 0.038 B-Natriuretic Peptide 09/02/18 17:20 WBC RBC Hgb Hct MCV MCH MCHC RDW RDW Differential Plt Count MPV Immature Gran % (Auto) Neut % (Auto) Lymph % (Auto) [place] % (Auto) Eos % (Auto) Baso % (Auto) Absolute Neuts (auto) Absolute Lymphs (auto) Total Counted PT INR Sodium Potassium Chloride Carbon Dioxide Anion Gap BUN Creatinine Estim Creat Clear Calc Est GFR (MDRD) Af Amer Est GFR (MDRD) Non-Af BUN/Creatinine Ratio Glucose Calcium Troponin I B-Natriuretic Peptide 1069.1 H Assessment/Plan All Active Problems (Last Reviewed 07/18/18 @ 15:36 by Marco Antonio Sherwood MD) Chest pain (Acute) H/O coronary artery bypass surgery (Resolved 12/02/01) Severe sepsis (Resolved) ATN (acute tubular necrosis) (Resolved) Acute bronchitis (Resolved) Acute sinusitis (Resolved) Chest pain, precordial (Resolved) Community acquired pneumonia of right middle lobe of lung (Resolved) Ischemic cardiomyopathy (Resolved) Pneumococcal pneumonia (Resolved) Shock, unspecified (Resolved) The patient is a 73 y/o F w/ PMHx: Chronic Systolic CHF/Ischemic Cardiomyopathy s/p AICD/Pacemaker, CAD s/p CABG x 4, HTN, HLD, GERD, Obesity, Anti-phospholipid syndrome on coumadin therapy, Diabetes mellitus type II who presents to the [facility] ED on 09/02/17 with history of onset left-sided and substernal chest pressure with difficulty rating as she notes that it is not consistent with pain with onset with exertion with associated shortness of breath and mild nausea with increased above moderate effort with resolution with rest with no improvement with home nitroglycerin sublingual therapies ongoing times 3 days. (1) Chest Pain: EKG in ED paced with no acute evidence of ischemia, CXR w/ chronically stable elevated hemidiaphragm with questionable right sided atelectasis versus lower lobe infiltrate, initial trop normal x1. Will admit to PCU, place on a monitored bed to assure no acute myocardial infarction with serial cardiac enzymes and EKGs. Patient refuses stress testing secondary to severe anxiety associated therefore will consult cardiology with noted cardiac catheterization 1 year prior to current date with medical management recomme ndation at that time. Given atypical chest x-ray will plan repeat PA and lateral in a.m. ASA, NG, morphine. FLP in AM. Mag pending. (2) Chronic Systolic CHF/Ischemic Cardiomyopathy: Continue home regimen asa, statin, BB, ACEI, lasix. Recent July 2018 ICD interrogation with noted 100% RV and LV pacing with no episodes of VT or VF per last cardiology visitation. (3) CAD: s/p CABG x 4, continue home aspirin, metoprolol, ACEI, statin. Most recent catheterization ~ 1 year prior with noted severe diffuse disease with normal left main coronary artery, left anterior descending artery with 90% proximal stenosis and 100% mid stenosis circumflex artery with dominant right coronary artery with ostial stenosis, circumflex artery diffusely diseased, saphenous vein graft to circumflex artery completely occluded in the proximal graft and 30% stenosis in the proximal left circumflex artery, saphenous vein graft to the diagonal vessel patent with a 70% diffuse stenosis, distal portion of the left anterior descending artery patent with medical therapy recommendation at that time (4) Hypertension: Continue home regimen including lisinopril, Lasix, isosorbide, metoprolol, PRN hydralazine. (5) Hyperlipidemia: Continue home statin regimen. AM FLP. (6) Diabetes mellitus type II: Hold oral home regimen, continue home insulin regimen, ADA diet, accu checks w/ ISS. (7) Antiphospholipid syndrome: Continue home Coumadin therapy with INR trending, therapeutic upon presentation. (8) Obesity: Weight loss and lifestyle changes encouraged. (9) DVT Prophylaxis: SCDs, coumadin. Code Visit OBSV E&M: [id number] Initial observation care L3
--- NOTE | 2018-09-02 18:54 | EKG12_ITS ---
Test Reason : CP Blood Pressure : / mmHG Vent. Rate : 075 BPM Atrial Rate : 075 BPM P-R Int : 128 ms QRS Dur : 168 ms QT Int : 486 ms P-R-T Axes : 045 -85 088 degrees QTc Int : 542 ms Atrial-sensed ventricular-paced rhythm Biventricular pacemaker detected Abnormal ECG Confirmed by SYDNEE SALGADO, MARCO ANTONIO ([id number]), department editor ROSITA PATRICIA ([id number] on 09/04/2018 1:49:14 PM Referred By: Confirmed By:MARCO ANTONIO RANDHAWA MD
[2018-09-02 19:23] LABS: Magnesium 1.8 mg/dL (1.6-2.6)
[2018-09-02] MEDS: Warfarin 0.5 MG Tablet PO (20:52)
[2018-09-02] MEDS: Pravastatin 40 MG Tablet 80 MG PO (22:56)
[2018-09-02] MEDS: Metoprolol(XL)Succ 25 MG Tablet PO (22:57)
[2018-09-02] MEDS: Atorvastatin Calcium 10 MG Tablet PO (22:58)
[2018-09-02] MEDS: 0.9% Normal Saline 1,000 ML 75 ML IV (23:03)
[2018-09-03] VITALS (15 sets, daily range): BP systolic 104–160; BP diastolic 53–77; PULSE 63–73; RESP 16–24; TEMP 36.4–37.4; O2SAT 93–99
[2018-09-03 00:36] LABS: Bedside Glucose 258 mg/dL (70-110)
[2018-09-03] MEDS: CLARIFY ORDER 1 EACH NOTE ×2 (01:24)
[2018-09-03] MEDS: Acetaminophen 325 MG Tablet 650 MG PO (01:27)
--- NOTE | 2018-09-03 02:36 | NURSING ---
Nitro paste removed around 02:30 09/03/18 just in case pt agrees to a stress test in the AM. As of now, no stress test is ordered.
--- NOTE | 2018-09-03 05:55 | EKG12_ITS ---
Test Reason : AM EKG Blood Pressure : / mmHG Vent. Rate : 063 BPM Atrial Rate : 064 BPM P-R Int : 000 ms QRS Dur : 168 ms QT Int : 516 ms P-R-T Axes : 000 -32 146 degrees QTc Int : 528 ms Ventricular-paced rhythm Biventricular pacemaker detected Abnormal ECG Confirmed by SYDNEE SALGADO, MARCO ANTONIO ([id number]), editor in chief newspaper ROSITA PATRICIA ([id number] on 09/05/2018 2:44:25 PM Referred By: MECHELLE Confirmed By:MARCO ANTONIO RANDHAWA MD
[2018-09-03 06:55] LABS: Bedside Glucose 114 mg/dL (70-110)
[2018-09-03 08:25] LABS: Hematocrit 41.7 % (37-47); Hemoglobin 13.1 g/dl (12.0-15.0); Mean Corp Hgb Conc 31.4 g/gl (32-36); Mean Corpuscular Hgb 29.8 pg (27.0-32.0); Mean Corpuscular Volume 94.8 fL (81-99); Mean Platelet Vol. 12.3 fl (6.2-12.0); Platelet Count 136 K/mm3 (150-450); RBC Distribution Width SD 47.2 fl (35.1-43.9); Scan Indicated on CBC? Y/N NO; White Blood Count 5.1 K/mm3 (4.4-11.0)
[2018-09-03 08:42] LABS: Anion Gap 6 (5-15); BUN 16 mg/dL (7-18); BUN/Creat Ratio 23.6 RATIO (10-20); Calcium,Total 8.3 mg/dL (8.5-10.1); Chloride 105 mmol/L (98-107); Cholesterol 91 mg/dL (200); Creatinine, Serum 0.68 mg/dL (0.55-1.02); EST Glomerular Filtration Rate 90 mL/min (>60); Est Glom Filt Rate - Afr Amer 109 mL/min (>60); Estimated Creatinine Clearance 62.26 ml/min; Glucose 123 mg/dL (74-106); High Density Lipoprotein 34 mg/dL; Potassium 3.8 mmol/L (3.5-5.1); Sodium Level 143 mmol/L (136-145); Triglycerides 90 mg/dL; Very Low Density Lipoprotein 18 mg/dL (5-40)
[2018-09-03 08:48] LABS: International Normalized Ratio 2.5
--- NOTE | 2018-09-03 09:28 | RAD_ITS ---
STUDY: X-RAY CHEST REASON FOR EXAM: Female, 73 years old. Chest pain. TECHNIQUE: PA and lateral views of the chest. COMPARISON: September 02, 2018. FINDINGS: Patient has a left-sided intracardiac pacemaker. Patient has had a sternotomy. Cardiac monitoring leads are present. There is moderate elevation of the right hemidiaphragm. There is right basilar subsegmental atelectasis. Bronchovascular markings are prominent in both lungs. There is no demonstrated pleural abnormality. There is mild cardiac enlargement. Normal mediastinum and april. Normal visualized pulmonary arteries. There is atherosclerotic calcification of the aortic arch with tortuosity. There is demineralization of the osseous structures. Patient has had a kyphoplasty of a compression fracture of the lumbar vertebral body. There is increased thoracic kyphosis. There are degenerative changes of both shoulders. Surgical clips are visible in the right upper quadrant. RAD/Chest PA and Lateral IMPRESSION: There is increasing right basilar subsegmental atelectasis. Electronically Signed: Joyce Doan MD at 11:11 EST , Service support ,
[2018-09-03] MEDS: Lisinopril 5 MG Tablet PO (10:57)
[2018-09-03] MEDS: Famotidine 20 MG Tablet PO (10:57)
[2018-09-03] MEDS: Metoprolol(XL)Succ 25 MG Tablet PO ×2 (10:57→21:02)
[2018-09-03] MEDS: Isosorbide Mononitrate 60 MG Tablet PO (10:58)
[2018-09-03] MEDS: Allopurinol 100 MG Tablet PO (10:58)
[2018-09-03] MEDS: Gabapentin 600 MG Tablet PO (10:58)
[2018-09-03] MEDS: Ranolazine 500 MG Tablet PO ×2 (10:58→21:01)
[2018-09-03] MEDS: Furosemide 40 MG/4 ML Vial IV ×3 (10:59→21:00)
[2018-09-03] MEDS: Nitroglycerin Oint 1 INCH PACKET TRANSDERM. ×2 (11:00→17:53)
[2018-09-03] MEDS: 0.9% NaCl Peripheral Flush Adult/Peds IV ×3 (11:14→21:05)
--- NOTE | 2018-09-03 11:20 | PCM.PROGNOTE ---
Patient Problems: Active and Suspected Problems (Last Reviewed 07/18/18 @ 15:36 by Marco Antonio Sherwood MD) Chest pain (Acute) Subjective: Patient was seen independently in conjunction with Akin DILLON. She is a 73-year-old female who presented to the emergency department at [facility] on 09/02/2017 complaining of left chest discomfort which she described to me as racing heart and a feeling as though there was something wrong with her pacemaker. She also complains of dyspnea on exertion and orthopnea. She does have a pacer/AICD. She has a history of a 20% ejection fraction secondary to ischemic cardiomyopathy. She has had CABG x4 vessels in the past and also has hypertension, hyperlipidemia, diabetes mellitus type 2, GERD, obesity, antiphospholipid syndrome and chronic anticoagulation with Coumadin. EKG in the emergency room revealed a completely paced rhythm. The initial troponin was 0.038 and the third troponin was 0.050. On her most recent cardiac catheterization Dr. Sherwood commented that she has diffuse disease and is not a candidate for revascularization. She was placed on maximum medical management and Ranexa was added to her drug regimen. Recently her insurance has not been paying for Ranexa and she cannot afford it. Blood pressure today is 160/61 but has ranged from 114/53 to 160/61 since admission. CBC is remarkable for low platelets at 136,000. INR is therapeutic today at 2.5. Electrolytes are within normal limits and the BUN is 16 with a creatinine of 0.68. BNP is 1069. Cholesterol is well controlled with an LDL of 39. Triglycerides are within normal limits. Objective: General: alert, oriented X3, NAD, appropriate with normal affect Neck: supple, trachea midline, carotids have brisk upstroke with decreased pulse volume, positive bilateral JVD, no carotid bruits Lungs: Rales in the right base but otherwise clear to auscultation with no rhonchi or wheezing. Symmetric chest expansion, not tachypneic, no conversational dyspnea, mild accessory muscle use Heart: Regular rate and rhythm, normal S1, normal S2, systolic murmur at the second right intercostal space with radiation to the left ventricular outflow tract, lower left sternal border and apex. There is also a systolic murmur in the left axilla. No gallop, no rub Abdomen: soft, NT, ND, BS's present, obese Extremities: no edema, no calf tenderness, peripheral pulses are diminished, no cyanosis - Physical Exam Vital Signs Temp Pulse Resp BP Pulse Ox 97.5 F L 63 16 160/61 H 97 09/03/18 10:44 09/03/18 11:00 09/03/18 10:44 09/03/18 11:00 09/03/18 10:44 Oxygen Flow Rate (L/min) 2 Oxygen Delivery Method Room Air Weight: 176 lb 2.389 oz Body Mass Index (BMI) 34.5 Finger Stick Blood Glucose 119 Intake and Output for Last 24 Hours 09/01/18 09/02/18 09/03/18 23:59 23:59 23:59 Intake Total 341.2 / 341.2 481 / 481 Output Total 0 / 0 Balance 341.2 / 341.2 481 / 481 Laboratory Tests Past 24 Hrs 09/02/18 09/02/18 09/02/18 17:20 17:20 17:20 WBC 7.2 RBC 4.68 Hgb 13.8 Hct 43.7 MCV 93.4 MCH 29.5 MCHC 31.6 L RDW 14.0 RDW Differential 47.1 H Plt Count 167 MPV 12.3 H Immature Gran % (Auto) 0.000 Neut % (Auto) 74.4 H Lymph % (Auto) 13.3 L [place] % (Auto) 10.2 H Eos % (Auto) 1.5 Baso % (Auto) 0.6 Absolute Neuts (auto) 5.4 Absolute Lymphs (auto) 0.96 Total Counted Not Reportable PT 25.6 H INR 2.3 Sodium 140 Potassium 4.0 Chloride 102 Carbon Dioxide 30.0 Anion Gap 8 BUN 21 H Creatinine 0.74 Estim Creat Clear Calc 35.45 Est GFR (MDRD) Af Amer 98 Est GFR (MDRD) Non-Af 81 BUN/Creatinine Ratio 28.2 H Glucose 245 H Calcium 8.8 Magnesium Troponin I 0.038 B-Natriuretic Peptide Triglycerides Cholesterol LDL Cholesterol VLDL Cholesterol HDL Cholesterol 09/02/18 09/02/18 09/02/18 17:20 17:20 20:39 WBC RBC Hgb Hct MCV MCH MCHC RDW RDW Differential Plt Count MPV Immature Gran % (Auto) Neut % (Auto) Lymph % (Auto) Sierra % (Auto) Eos % (Auto) Baso % (Auto) Absolute Neuts (auto) Absolute Lymphs (auto) Total Counted PT INR Sodium Potassium Chloride Carbon Dioxide Anion Gap BUN Creatinine Estim Creat Clear Calc Est GFR (MDRD) Af Amer Est GFR (MDRD) Non-Af BUN/Creatinine Ratio Glucose Calcium Magnesium 1.8 Troponin I 0.045 B-Natriuretic Peptide 1069.1 H Triglycerides Cholesterol LDL Cholesterol VLDL Cholesterol HDL Cholesterol 09/02/18 09/03/18 09/03/18 23:54 08:08 08:08 WBC 5.1 RBC 4.40 Hgb 13.1 Hct 41.7 MCV 94.8 MCH 29.8 MCHC 31.4 L RDW 14.0 RDW Differential 47.2 H Plt Count 136 L MPV 12.3 H Immature Gran % (Auto) Neut % (Auto) Lymph % (Auto) Sierra % (Auto) Eos % (Auto) Baso % (Auto) Absolute Neuts (auto) Absolute Lymphs (auto) Total Counted PT 27.0 H INR 2.5 Sodium Potassium Chloride Carbon Dioxide Anion Gap BUN Creatinine Estim Creat Clear Calc Est GFR (MDRD) Af Amer Est GFR (MDRD) Non-Af BUN/Creatinine Ratio Glucose Calcium Magnesium Troponin I 0.050 H B-Natriuretic Peptide Triglycerides Cholesterol LDL Cholesterol VLDL Cholesterol HDL Cholesterol 09/03/18 08:08 WBC RBC Hgb Hct MCV MCH MCHC RDW RDW Differential Plt Count MPV Immature Gran % (Auto) Neut % (Auto) Lymph % (Auto) Sierra % (Auto) Eos % (Auto) Baso % (Auto) Absolute Neuts (auto) Absolute Lymphs (auto) Total Counted PT INR Sodium 143 Potassium 3.8 Chloride 105 Carbon Dioxide 32.0 Anion Gap 6 BUN 16 Creatinine 0.68 Estim Creat Clear Calc 62.26 Est GFR (MDRD) Af Amer 109 Est GFR (MDRD) Non-Af 90 BUN/Creatinine Ratio 23.6 H Glucose 123 H Calcium 8.3 L Magnesium Troponin I B-Natriuretic Peptide Triglycerides 90 Cholesterol 91 LDL Cholesterol 39 VLDL Cholesterol 18 HDL Cholesterol 34 L POC Glucose 09/03/18 09/02/18 06:48 22:40 POC Glucose 114 H 258 H Medical Necessity - Tobacco Use Smoking Status: Never smoker Tobacco Use: Non-smoker Assessment/Plan All Active Problems (Last Reviewed 07/18/18 @ 15:36 by Marco Antonio Sherwood MD) Chest pain (Acute) H/O coronary artery bypass surgery (Resolved 12/02/01) Severe sepsis (Resolved) ATN (acute tubular necrosis) (Resolved) Acute bronchitis (Resolved) Acute sinusitis (Resolved) Chest pain, precordial (Resolved) Community acquired pneumonia of right middle lobe of lung (Resolved) Ischemic cardiomyopathy (Resolved) Pneumococcal pneumonia (Resolved) Shock, unspecified (Resolved) Impressions 1. Acute on chronic systolic congestive heart failure 2. Atypical chest discomfort not improved with nitroglycerin..... Mild elevation in the third troponin which may be due to demand ischemia related to acute congestive heart failure. 3. Coronary artery disease with history of CABG x4 vessels-most recent catheterization showed her to be non-revascularizable and she should be on maximum medical management 4. Antiphospholipid antibody syndrome 5. Pulmonary hypertension 6. Presence of pacemaker/AICD 7. Severe ischemic cardiomyopathy with a 20% ejection fraction 8. [id number] 9. Chronic anticoagulation with warfarin-INR is therapeutic 10. Obesity DC p.o. Lasix and start Lasix 40 mg IV every 8 hours x3 doses with potassium 20 mEq every 8 hours x3 doses Accurate I&O [facility] on consult Recheck lab in the a.m. Restart Ranexa Pacemaker check Code Visit Inpatient E&M: 88991 [facility] Hosp L3
--- NOTE | 2018-09-03 11:24 | PN_ITS ---
Addendum entered and electronically signed by WILMA Gonzales 09/03/18 16:35: Code Visit Addendum: pt had increased O2 demand after choking. She has hx of aspiration. Will check AM CBC and CXR. If she develops fever or worsening symptoms or if Infiltrate on AM CXR will start antibiotics. Hold for now. Speech to evaluate the patient. Addendum entered and electronically signed by WILMA Gonzales 09/03/18 14:25: Code Visit S: Pt seen and exmained this AM resting comfortably in bed NAD. She continues to c/o chest heaviness that is located over the left side of her chest, and states that it feels like her pacemaker hurts, although when I point to where her pacemaker is under the skin she states the pain is not there but lower on her chest wall. She denies pain specifically, also denies tightness. She stopped her ranexa as she could not afford it. She currently denies SOB with rest or exertion to the restroom. She has no palpitations or flutters. O: VSS, INR therapeutic, renal function normal, CBC shows low platelets @ 136, BNP 1069.1, last trop 0.050. CXR with atelectasis. Last echo reviewed - 08/2017: EF 20% General: Resting comfortably NAD Psych: A/Ox3 normal affect HEENT: [place] AT NC Neck: Supple NT CV: RRR no, 3/6 systolic murmur audible across the chest. Resp: diminished. Abd: [id number] Soft NT no guarding or rigidity Ext: DP2+= no edema Skin: W/D normal turgor Lymph/Heme: No active bleeding or adenopathy Neuro: CN2-12 intact AP: 1. Acute systolic CHF exacerbation/Ischemic CM - continue IV diuresis. No need for repeat Echo. Has ICD. Pacer check ordered. 2. Elevated troponin - last troponin bumped, likely 2/2 acute CHF, will maintain on monitor. Pt is not stentable per last cath. AICD in placed. 3. Chest heaviness - restart ranexa and monitor on tele 4. CAD with prior CABG. continue aspirin, atorvastatin, hydralazine, indoor, Ranexa, lisinopril, Toprol XL 5. Hx Antiphospholipid syndrome-continue warfarin. 6. Mild decreased platelets. Trend. 7. DMt2 with obesity- continue current regimen, hold orals, DM diet. DVT prophylaxis: Covered with warfarin Discharge planning-continue to diurese, follow labs, monitor for improvement with Ranexa, possibly home tomorrow. This patient was seen by Akin Dhillon PA-C under the supervision of Doctor Trammell. Original Note: Patient Problems: Active and Suspected Problems (Last Reviewed 07/18/18 @ 15:36 by Marco Antonio Sherwood MD) Chest pain (Acute) Subjective: Patient was seen independently in conjunction with Akin DILLON. She is a 73-year-old female who presented to the emergency department at [facility] on 09/02/2017 complaining of left chest discomfort which she described to me as racing heart and a feeling as though there was something wrong with her pacemaker. She also complains of dyspnea on exertion and orthopnea. She does have a pacer/AICD. She has a history of a 20% ejection fraction secondary to ischemic cardiomyopathy. She has had CABG x4 vessels in the past and also has hypertension, hyperlipidemia, diabetes mellitus type 2, GERD, obesity, antiphospholipid syndrome and chronic anticoagulation with Coumadin. EKG in the emergency room revealed a completely paced rhythm. The i nitial troponin was 0.038 and the third troponin was 0.050. On her most recent cardiac catheterization Dr. Sherwood commented that she has diffuse disease and is not a candidate for revascularization. She was placed on maximum medical management and Ranexa was added to her drug regimen. Recently her insurance has not been paying for Ranexa and she cannot afford it. Blood pressure today is 160/61 but has ranged from 114/53 to 160/61 since admission. CBC is remarkable for low platelets at 136,000. INR is therapeutic today at 2.5. Electrolytes are within normal limits and the BUN is 16 with a creatinine of 0.68. BNP is 1069. Cholesterol is well controlled with an LDL of 39. Triglycerides are within normal limits. Objective: General: alert, oriented X3, NAD, appropriate with normal affect Neck: supple, trachea midline, carotids have brisk upstroke with decreased pulse volume, positive bilateral JVD, no carotid bruits Lungs: Rales in the right base but otherwise clear to auscultation with no rhonchi or wheezing. Symmetric chest expansion, not tachypneic, no conversational dyspnea, mild accessory muscle use Heart: Regular rate and rhythm, normal S1, normal S2, systolic murmur at the second right intercostal space with radiation to the left ventricular outflow tract, lower left sternal border and apex. There is also a systolic murmur in the left axilla. No gallop, no rub Abdomen: soft, NT, ND, BS's present, obese Extremities: no edema, no calf tenderness, peripheral pulses are diminished, no cyanosis - Physical Exam Vital Signs Temp Pulse Resp BP Pulse Ox 97.5 F L 63 16 160/61 H 97 09/03/18 10:44 09/03/18 11:00 09/03/18 10:44 09/03/18 11:00 09/03/18 10:44 Oxygen Flow Rate (L/min) 2 Oxygen Delivery Method Room Air Weight: 176 lb 2.389 oz Body Mass Index (BMI) 34.5 Finger Stick Blood Glucose 119 Intake and Output for Last 24 Hours 09/01/18 09/02/18 09/03/18 23:59 23:59 23:59 Intake Total 341.2 / 341.2 481 / 481 Output Total 0 / 0 Balance 341.2 / 341.2 481 / 481 Laboratory Tests Past 24 Hrs 09/02/18 09/02/18 09/02/18 17:20 17:20 17:20 WBC 7.2 RBC 4.68 Hgb 13.8 Hct 43.7 MCV 93.4 MCH 29.5 MCHC 31.6 L RDW 14.0 RDW Differential 47.1 H Plt Count 167 MPV 12.3 H Immature Gran % (Auto) 0.000 Neut % (Auto) 74.4 H Lymph % (Auto) 13.3 L [place] % (Auto) 10.2 H Eos % (Auto) 1.5 Baso % (Auto) 0.6 Absolute Neuts (auto) 5.4 Absolute Lymphs (auto) 0.96 Total Counted Not Reportable PT 25.6 H INR 2.3 Sodium 140 Potassium 4.0 Chloride 102 Carbon Dioxide 30.0 Anion Gap 8 BUN 21 H Creatinine 0.74 Estim Creat Clear Calc 35.45 Est GFR (MDRD) Af Amer 98 Est GFR (MDRD) Non-Af 81 BUN/Creatinine Ratio 28.2 H Glucose 245 H Calcium 8.8 Magnesium Troponin I 0.038 B-Natriuretic Peptide Triglycerides Cholesterol LDL Cholesterol VLDL Cholesterol HDL Cholesterol 09/02/18 09/02/18 09/02/18 17:20 17:20 20:39 WBC RBC Hgb Hct MCV MCH MCHC RDW RDW Differential Plt Count MPV Immature Gran % (Auto) Neut % (Auto) Lymph % (Auto) [place] % (Auto) Eos % (Auto) Baso % (Auto) Absolute Neuts (auto) Absolute Lymphs (auto) Total Counted PT INR Sodium Potassium Chloride Carbon Dioxide Anion Gap BUN Creatinine Estim Creat Clear Calc Est GFR (MDRD) Af Amer Est GFR (MDRD) Non-Af BUN/Creatinine Ratio Glucose Calcium Magnesium 1.8 Troponin I 0.045 B-Natriuretic Peptide 1069.1 H Triglycerides Cholesterol LDL Cholesterol VLDL Cholesterol HDL Cholesterol 09/02/18 09/03/18 09/03/18 23:54 08:08 08:08 WBC 5.1 RBC 4.40 Hgb 13.1 Hct 41.7 MCV 94.8 MCH 29.8 MCHC 31.4 L RDW 14.0 RDW Differential 47.2 H Plt Count 136 L MPV 12.3 H Immature Gran % (Auto) Neut % (Auto) Lymph % (Auto) [place] % (Auto) Eos % (Auto) Baso % (Auto) Absolute Neuts (auto) Absolute Lymphs (auto) Total Counted PT 27.0 H INR 2.5 Sodium Potassium Chloride Carbon Dioxide Anion Gap BUN Creatinine Estim Creat Clear Calc Est GFR (MDRD) Af Amer Est GFR (MDRD) Non-Af BUN/Creatinine Ratio Glucose Calcium Magnesium Troponin I 0.050 H B-Natriuretic Peptide Triglycerides Cholesterol LDL Cholesterol VLDL Cholesterol HDL Cholesterol 09/03/18 08:08 WBC RBC Hgb Hct MCV MCH MCHC RDW RDW Differential Plt Count MPV Immature Gran % (Auto) Neut % (Auto) Lymph % (Auto) [place] % (Auto) Eos % (Auto) Baso % (Auto) Absolute Neuts (auto) Absolute Lymphs (auto) Total Counted PT INR Sodium 143 Potassium 3.8 Chloride 105 Carbon Dioxide 32.0 Anion Gap 6 BUN 16 Creatinine 0.68 Estim Creat Clear Calc 62.26 Est GFR (MDRD) Af Amer 109 Est GFR (MDRD) Non-Af 90 BUN/Creatinine Ratio 23.6 H Glucose 123 H Calcium 8.3 L Magnesium Troponin I B-Natriuretic Peptide Triglycerides 90 Cholesterol 91 LDL Cholesterol 39 VLDL Cholesterol 18 HDL Cholesterol 34 L POC Glucose 09/03/18 09/02/18 06:48 22:40 POC Glucose 114 H 258 H Medical Necessity - Tobacco Use Smoking Status: Never smoker Tobacco Use: Non-smoker Assessment/Plan All Active Problems (Last Reviewed 07/18/18 @ 15:36 by Marco Antonio Sherwood MD) Chest pain (Acute) H/O coronary artery bypass surgery (Resolved 12/02/01) Severe sepsis (Resolved) ATN (acute tubular necrosis) (Resolved) Acute bronchitis (Resolved) Acute sinusitis (Resolved) Chest pain, precordial (Resolved) Community acquired pneumonia of right middle lobe of lung (Resolved) Ischemic cardiomyopathy (Resolved) Pneumococcal pneumonia (Resolved) Shock, unspecified (Resolved) Impressions 1. Acute on chronic systolic congestive heart failure 2. Atypical chest discomfort not improved with nitroglycerin..... Mild elevation in the third troponin which may be due to demand ischemia related to acute congestive heart failure. 3. Coronary artery disease with history of CABG x4 vessels-most recent catheterization showed her to be non-revascularizable and she should be on maximum medical management 4. Antiphospholipid antibody syndrome 5. Pulmonary hypertension 6. Presence of pacemaker/AICD 7. Severe ischemic cardiomyopathy with a 20% ejection fraction 8. Zjwjzmbznkelvv-[id number] 9. Chronic anticoagulation with warfarin-INR is therapeutic 10. Obesity DC p.o. Lasix and start Lasix 40 mg IV every 8 hours x3 doses with potassium 20 mEq every 8 hours x3 doses Accurate I&O [facility] on consult Recheck lab in the a.m. Restart Ranexa Pacemaker check Code Visit Inpatient E&M: 41739 Subs Hosp L3
[2018-09-03 11:36] LABS: Bedside Glucose 112 mg/dL (70-110)
--- NOTE | 2018-09-03 12:20 | CASEMGMT ---
JASBIR CHERRY assessment: Face to Face with patient for initial transition planning/care coordination assessment. JASBIR CHERRY introduced self and role at [facility], pt voices understanding and consents to assessment at this time. Pt is sitting up in bed in no distress at this time. Pt is A/Ox4 at this time and answers all questions appropriately at this time. Care providers, pharmacy, and demographics verified at this time. PCP: Edmar Specialists: Presley, cardio Preferred [facility]acy: [facility] Insurance: [facility] A/B Prescription Benefit: None, pt states did not sign up for ZAY D initially and now will have to pay penalty. Pt states quit taking Ranexa d/t cost. This JASBIR CHERRY offered pt prescription assist paperwork and advised pt that she can go online and complete assistance through [employer] website. Pt states that she is unable to do this but has family that could help. Pt states that she would be able to afford $50/month, if she qualifies for the prescription assistance. Pt provided with [employer] enrollment form and [employer] website information at this time. Living Will/HPOA: Pt states does not have LW/HPOA and declines info at this time. LNOK: Darius Fernandez, Living Arrangements: Pt states lives with on main level of 2 story home and states no concerns at home at this time. Pt states no concerns with ADL's. Transportation: Pt states drives and states no transportation concerns at this time. DME/HHC: Pt states has the following DME: w/c, cane, and tub bench. Pt states no need for any further DME. Pt states has had [facility] and has been to [facility] and [facility] in the past. Pt states no concerns with going home at time of discharge. Pt is retired. Pt states does not smoke or drink ETOH. Pt states no further concerns/needs at this time. CM to follow for any further discharge planning/needs. Advised pt to ask for CM if any further questions/concerns/needs arise, voices understanding. Plan: [place] JASBIR CHERRY
[2018-09-03 17:16] LABS: Bedside Glucose 245 mg/dL (70-110)
[2018-09-03] MEDS: Warfarin 0.5 MG Tablet PO (17:53)
--- NOTE | 2018-09-03 20:13 | PCM.CONS.C ---
Problem List (1) Chronic systolic congestive heart failure Status: Chronic (2) Ischemic cardiomyopathy Status: Chronic (3) CAD (coronary artery disease) Status: Chronic (4) H/O coronary artery bypass surgery Status: Chronic Comment: CABG: RIVERA-Distal LAD, SVG-Prox LAD, SVG-OM1, SVG-Left PDA 12/2001; (5) Automatic implantable cardiac defibrillator in situ Status: Chronic (6) HLD (hyperlipidemia) Status: Chronic Qualifiers: Hyperlipidemia type: unspecified Qualified Code(s): E78.5 - Hyperlipidemia, unspecified (7) Essential (primary) hypertension Status: Chronic (8) Secondary pulmonary arterial hypertension Status: Chronic (9) Hypercoagulable state, primary Status: Chronic Reason for Consult Date of Consultation: 09/03/18 History of Present Illness: The patient is a 73 year old white female with a past medical history of hyperlipidemia, hypertension, CAD, CABG, ischemic mediated cardiomyopathy, biventricular ICD, who presents for evaluation of shortness of breath/dyspnea and concerns of acute on chronic systolic mediated CHF. The patient states that over the recent holiday season she has been noncompliant with her diet. She notes that she has been eating popcorn with salt, pretzels with salt, and potato chips. She states that she has been taking her medications. However she was noticing progressive shortness of breath and dyspnea. She has become progressively short of breath and dyspneic she is noted concerns of chest heaviness. She notes her lower extremity edema has waxed and waned. She denied any near syncope or syncope or ICD discharge. She was evaluated at [facility]. There were concerns of underlying acute on chronic systolic CHF. She was brought into the PCU for further evaluation and care. Troponin I level was indeterminant. Her BNP level was elevated. Her ECG demonstrated a biventricular pacemaker device. Her biventricular ICD was interrogated. There were no reports of a tear AF events or VT or VF events. Her underlying rhythm was by V paced. She was RV LV pacing at 100%. Her battery life is approximately 5.5 years. She has been started on additional medical management which has included IV diuretic therapy. [] Past Medical History Allergies/Adverse Reactions: Allergies latex Allergy (Severe, Verified 07/18/18 14:05) Swelling Home Medications: Ambulatory Orders Medication Instructions Recorded Ergocalciferol [Vitamin D] 50,000 unit PO QMONTH 05/09/16 Insulin Glargine,Hum.rec.anlog 40 unit SQ DAILY 05/09/16 [Lantus] lisinopril 5 mg tablet 5 mg PO QDAY 08/19/17 Allopurinol [Zyloprim] 100 mg PO DAILY 08/29/17 nitroglycerin 0.4 mg sublingual 0.4 mg SUBLINGUAL Q5M PRN 09/20/17 tablet aspirin 81 mg tablet,delayed 81 mg PO QHS 10/02/17 release pravastatin 40 mg tablet 80 mg PO QHS tab 10/02/17 furosemide 40 mg tablet 40 mg PO BID 03/25/18 gabapentin 600 mg tablet 600 mg PO QDAY 04/01/18 metoprolol succinate ER 25 mg 25 mg PO BID tab 04/01/18 tablet,extended release 24 hr Warfarin [Coumadin] 3.5 mg PO DAILY 04/26/18 Metformin HCl 500 mg PO DAILY #0 04/27/18 Colchicine [Colcrys] 0.6 mg PO DAILY PRN 09/02/18 Isosorbide Mononitrate [Isosorbide 60 mg PO DAILY 09/02/18 Mononitrate ER] Paroxetine HCl [Paxil] 20 mg PO QHS 09/02/18 Ranitidine [Zantac] 150 mg PO DAILY 09/02/18 Simvastatin [Zocor] 20 mg PO QHS 09/02/18 Past Medical History (Chronic Problems): Chronic Problems (Last Reviewed 07/18/18 @ 15:36 by Marco Antonio Sherwood MD) CAD (coronary artery disease) (Chronic) Secondary pulmonary arterial hypertension (Chronic) Essential (primary) hypertension (Chronic) Automatic implantable cardiac defibrillator in situ (Chronic 12/21/13) Acute kidney failure (Chronic) Atherosclerosis of coronary artery bypass graft without angina pectoris (Chronic) CABG: RIVERA-Distal LAD, SVG-Prox LAD, SVG-OM1, SVG-Left PDA 12/2001; Ischemic cardiomyopathy (Chronic) Chronic systolic congestive heart failure (Chronic) Dyspnea on exertion (Chronic) HLD (hyperlipidemia) (Chronic) Myocardial infarction (Chronic) H/O coronary artery bypass surgery (Chronic 12/02/01) CABG: RIVERA-Distal LAD, SVG-Prox LAD, SVG-OM1, SVG-Left PDA 12/2001; Hypercoagulable state, primary (Chronic) RBBB (right bundle branch block) (Chronic) NSTEMI (non-ST elevated myocardial infarction) (Chronic) Obesity (Chronic) Anti-phospholipid syndrome (Chronic) Surgical History: appendectomy, cholecystectomy, coronary bypass surgery, hysterectomy, pacemaker implantation Psychiatric History: No pertinent psych hx [employer]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 History: No pertinent SP[employer]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 history - *Family History Maternal Family History: Family History (Last Reviewed 07/18/18 @ 15:36 by Marco Antonio Sherwood MD) Mother CAD (coronary artery disease) Myocardial infarction, Onset Age: 62 Brother Myocardial infarction CAD (coronary artery disease) Sister Bone cancer Sister CAD (coronary artery disease) Myocardial infarction Hypertension History Items: Heart Disease Paternal Family History: Family History (Last Reviewed 07/18/18 @ 15:36 by Marco Antonio Sherwood MD) Mother CAD (coronary artery disease) Myocardial infarction, Onset Age: 62 Brother Myocardial infarction CAD (coronary artery disease) Sister Bone cancer Sister CAD (coronary artery disease) Myocardial infarction Hypertension History Items: Heart Disease, - - Father with anti-phospholipid syndrome Sibling Family History: Family History (Last Reviewed 07/18/18 @ 15:36 by Marco Antonio Sherwood MD) Mother CAD (coronary artery disease) Myocardial infarction, Onset Age: 62 Brother Myocardial infarction CAD (coronary artery disease) Sister Bone cancer Sister CAD (coronary artery disease) Myocardial infarction Hypertension History Items: Cancer, Heart Disease, - Lives: Spouse/ Significant Other Smoking Status: Never smoker Tobacco Use: Non-smoker Alcohol: None Drugs: None Review of Systems - Review of Systems General: Denies: Fever, Night Sweats, Fatigue Cardiovascular: Reports: Chest Discomfort, Shortness of Breath, Peripheral Edema. Denies: Orthopnea, PND, Palpitations, Lightheadedness, Dizziness, Near Syncope, Syncope Respiratory: Reports: Shortness of Breath. Denies: Cough, Sputum Production, Hemoptysis Gastrointestinal: Denies: Hematemesis, Hematochezia, Melena Genitourinary: Denies: Dysuria, Hematuria Skin: Denies: Rash Subjectve: This is a 73-year-old white female who appears to be resting reasonably comfortably at the moment in no acute distress. Objective: Vital Signs Temp Pulse Resp BP Pulse Ox 98.0 F 73 16 104/55 L 93 09/03/18 16:44 09/03/18:03 09/03/18 16:44 09/03/18 16:44 09/03/18 16:44 Oxygen Flow Rate (L/min) 2 Oxygen Delivery Method Room Air Weight: 176 lb 2.389 oz Body Mass Index (BMI) 34.5 Finger Stick Blood Glucose 119 Intake and Output for Last 24 Hours 09/01/18 09/02/18 09/03/18 23:59 23:59 23:59 Intake Total 341.2 / 341.2 1201 / 1201 Output Total 300 / 300 Balance 341.2 / 341.2 901 / 901 General: Awake, Alert, Oriented x 3, Cooperative, No Acute Distress, Obese HEENT: Atraumatic, Normocephalic, PERRL, EOMI, Sclera Non Icteric Oral: Moist Mucosa Neck: Supple, Good ROM, No JVD Lungs: Diminished Tirso Bases Cardiovascular: Regular Rhythm, Normal S1, Normal S2 Vascular: No Carotid Bruits Abdomen: Bowel Sounds Present, Soft, Non Tender Extremities: No edema Psych/Mental Status: Appropriate 09/02/18 20:39: Troponin I 0.045 09/02/18 23:54: Troponin I 0.050 H 09/03/18 08:08: WBC 5.1, RBC 4.40, Hgb 13.1, Hct 41.7, MCV 94.8, MCH 29.8, MCHC 31.4 L, RDW 14.0, RDW Differential 47.2 H, Plt Count 136 L, MPV 12.3 H 09/03/18 08:08: PT 27.0 H, INR 2.5 09/03/18 08:08: Sodium 143, Potassium 3.8, Chloride 105, Carbon Dioxide 32.0, Anion Gap 6, BUN 16, Creatinine 0.68, Est GFR (MDRD) Af Amer 109, Est GFR (MDRD) Non-Af 90, BUN/Creatinine Ratio 23.6 H, Glucose 123 H, Calcium 8.3 L, Triglycerides 90, Cholesterol 91, LDL Cholesterol 39, VLDL Cholesterol 18, HDL Cholesterol 34 L Rhythm: Biventricular paced rhythm EKG: As noted above ECHO: 08/30/2017: Left ventricle with severe segmental left ventricular systolic dysfunction with an estimated LVEF of 20%; mild MR; mild to moderate TR; mild focal aortic valve calcification; mild GA Cardiac Cath: 12/18/2013: Impression: Nondominant RCA with mild disease; dominant LCx with severe disease; atretic RIVERA; SVG to the diagonal branch of the LAD patent and retrograde fills another limb of the distal LAD; SVG to the LCx occluded; SVG to the RCA occluded; left ventricle with an LVEF of 30% Assessment/Plan 1. Acute on chronic systolic CHF The patient appears, potentially from her dietary indiscretion, 2 of developed acute on chronic systolic CHF. At the present time she will continue to be followed. She will continue medical management. This does include IV diuretic therapy. Hopefully this will help with her volume overload and associated symptoms. 2. Ischemic mediated cardiomyopathy The patient does have an underlying ischemic mediated cardiomyopathy. She now presents with acute on chronic systolic CHF. She will continue to be monitored. She will have a follow-up echocardiogram to reassess her ventricular wall motion and systolic function. She will continue medical management. 3. CAD status post CABG The patient has undergone noninvasive and invasive evaluation in the past. It appears based on her previous invasive evaluation that she has have evidence of SVG graft closure to the OM and the RCA systems. Apparently she was not thought to be a candidate for additional revascularization therapy. Thus she will continue medical management. 4. ICD He does have a biventricular ICD. It was interrogated earlier this day. It appears to be functioning appropriately. 5. Hyperlipidemia She we will continue lipid-lowering therapy as deemed appropriate. 6. Hypertension She will continue to have her blood pressure monitored. Her medicines can be adjusted as needed. 7. Secondary pulmonary hypertension There is a report of a history of secondary pulmonary hypertension. An attempt can be made to estimate her right-sided pressures with an echocardiogram. 8. Hypercoagulable state He is on anticoagulant therapy. Her INR is therapeutic at this time. This note was generated using a voice recognition system and there may be incorrect words, spelling or punctuation that were not noted when reviewing the office note prior to saving.
[2018-09-03] MEDS: Aspirin E.C. 81 MG Tablet PO (20:57)
[2018-09-03] MEDS: Atorvastatin Calcium 10 MG Tablet PO (21:01)
[2018-09-03] MEDS: Mag Hydrox/Al Hydrox/Simeth 30 ML UDC PO (21:37)
[2018-09-03 22:10] LABS: Bedside Glucose 294 mg/dL (70-110)
[2018-09-04] VITALS (11 sets, daily range): BP systolic 99–138; BP diastolic 54–72; PULSE 61–89; RESP 12–18; TEMP 36.4–36.7; O2SAT 91–99
[2018-09-04] MEDS: Nitroglycerin Oint 1 INCH PACKET TRANSDERM. ×3 (00:20→11:14)
[2018-09-04] MEDS: Ondansetron 4 MG/2 ML Vial IV (02:18)
[2018-09-04] MEDS: 0.9% NaCl Peripheral Flush Adult/Peds IV ×2 (02:19→14:15)
[2018-09-04] MEDS: Magnesium Hydroxide 30 ML UDC PO (02:31)
--- NOTE | 2018-09-04 05:55 | ECHOCS_ITS ---
Reason For Study: dyspnea/SOB Procedure This was a 2D Doppler, Color Flow transthoracic echocardiogram. The study was technically difficult. Contrast injection was performed. Exam performed portable in patient room. Left Ventricle Mildly dilated left ventricle. Severe segmental systolic dysfunction (see wall motion). The estimated ejection fraction is 25 %. Anterio-Basal: Hypokinetic. Lateral-Basal: Hypokinetic. Posterior-Basal: Hypokinetic. Basal inferoseptal: Hypokinetic. Mid-Anterior : Hypokinetic. Mid- Lateral : Hypokinetic. Mid-Posterior: Akinetic. Mid-Inferior: Hypokinetic. Mid-inferoseptal : Hypokinetic. Mid-anteroseptal : Hypokinetic. Barre : Akinetic. Right Ventricle Moderately dilated right ventricle. ICD or pacer leads identified within the right ventricle. Mild to moderate global right ventricular systolic dysfunction. Atria The left atrium is mildly enlarged. Normal right atrium. ICD or pacer leads identified within the right atrium. No doppler evidence for ASD. Mitral Valve There is mild to moderate mitral annular calcification. Extension of the mitral annular calcification onto the posterior mitral valve leaflet. Mild diffuse mitral valve thickening. The mitral papillary muscle appears thickened and/or calcified. Mild papillary muscle dysfunction of the mitral valve. Mild (1+) mitral valve insufficiency. Tricuspid Valve Normal tricuspid valve. Moderate (2+) tricuspid valve insufficiency. Right ventricular systolic pressure estimated to be 36 mmHg. Aortic Valve Trisinus/trileaflet aortic valve. Moderate diffuse aortic valve calcification. Moderate to severe aortic valve stenosis. Mild (1+) aortic valve insufficiency. Pulmonic Valve The pulmonic valve is not well visualized. Trivial pulmonic valve insufficiency. Great Vessels Normal sized aortic root. Pericardium/Pleural No pericardial effusion. Medication Diluted definity 3.0ml given slow IV push to enhance endocardial definition. MMode/2D Measurements & Calculations LVIDd: 5.7 cm IVSd: 1.2 cm LVOT diam: 1.9 cm LVIDs: 4.5 cm LVPWd: 1.2 cm RVDd: 4.6 cm FS: 20.0 % LVOT area: 2.9 cm2 Ao root diam: 3.0 cm LAV(MOD-bp): 63.0 ml LA A4 area: 19.6 cm2 LAV(MOD-bp) Indexed: 36.1 ml/m2 LAV(MOD-sp2): 64.8 ml LAV(MOD-sp4): 57.3 ml LA dimension(2D): 4.4 cm RA A4 area: 18.8 cm2 Time Measurements MV dec time: 0.16 sec Doppler Measurements & Calculations MV E max sanjuana: 104.9 cm/sec Ao V2 max: 289.8 cm/sec AI max sanjuana: 375.4 cm/sec MV A max sanjuana: 28.8 cm/sec Ao max P.6 mmHg AI max P.4 mmHg MV E/A: 3.6 Ao V2 mean: 221.1 cm/sec Ao mean P.0 mmHg AI dec slope: 261.4 cm/sec2 Ao V2 VTI: 71.6 cm AI P1/2t: 420.6 msec CLEOPATRA(I,D): 0.66 cm2 CLEOPATRA(V,D): 0.73 cm2 LV V1 max: 71.4 cm/sec SV(LVOT): 47.2 ml PA V2 max: 51.1 cm/sec LV V1 max P.1 mmHg LV V1 mean P.2 mmHg LV V1 mean: 52.2 cm/sec LV V1 VTI: 16.0 cm TR max sanjuana: 261.4 cm/sec TR max P.6 mmHg Interpretation Summary The study was technically difficult. Contrast injection was performed. Mildly dilated left ventricle. Severe segmental systolic dysfunction (see wall motion). The estimated ejection fraction is 25 %. Moderately dilated right ventricle. Mild to moderate global right ventricular systolic dysfunction. The left atrium is mildly enlarged. There is mild to moderate mitral annular calcification. Extension of the mitral annular calcification onto the posterior mitral valve leaflet. Mild diffuse mitral valve thickening. The mitral papillary muscle appears thickened and/or calcified. Mild papillary muscle dysfunction of the mitral valve. Mild (1+) mitral valve insufficiency. Moderate (2+) tricuspid valve insufficiency. Moderate to severe aortic valve stenosis. Mild (1+) aortic valve insufficiency. Trivial pulmonic valve insufficiency. Right ventricular systolic pressure estimated to be 36 mmHg. Transmitral diastolic flow velocities suggest diastolic dysfunction (pseudonormal pattern). ICD or pacer leads identified within the right atrium ICD or pacer leads identified within the right ventricle. Comment: 2D echocardiographic images obtained demonstrate a small somewhat linear echodensity in the sub mitral valvular apparatus of uncertain etiology with a differential diagnosis including a papillary fibroelastoma of hematoma, however, other etiologies cannot be excluded. The aforementioned appears without significant change c/w the previous TTE of 12/25/2016. Ordering Physician: Stephen Swan Referring Physician: Ranjan Hyatt Chi Performed By: Yuridia Lockhart, RDCS, RVT
[2018-09-04 07:02] LABS: Hematocrit 43.3 % (37-47); Hemoglobin 13.5 g/dl (12.0-15.0); Mean Corp Hgb Conc 31.2 g/gl (32-36); Mean Corpuscular Hgb 29.9 pg (27.0-32.0); Mean Corpuscular Volume 95.8 fL (81-99); Mean Platelet Vol. 12.7 fl (6.2-12.0); Platelet Count 140 K/mm3 (150-450); RBC Distribution Width SD 47.8 fl (35.1-43.9); Red Blood Count 4.52 M/mm3 (4.2-5.4); White Blood Count 5.6 K/mm3 (4.4-11.0)
[2018-09-04 07:04] LABS: Scan Indicated on CBC? Y/N NO
[2018-09-04 07:09] LABS: International Normalized Ratio 2.5; Prothrombin Time (Protime)PT. 27.2 SECONDS (11.7-14.9)
[2018-09-04 07:24] LABS: Anion Gap 5 (5-15); BUN 19 mg/dL (7-18); Calcium,Total 8.9 mg/dL (8.5-10.1); Chloride 102 mmol/L (98-107); EST Glomerular Filtration Rate 65 mL/min (>60); Est Glom Filt Rate - Afr Amer 78 mL/min (>60); Estimated Creatinine Clearance 69.17 ml/min; Glucose 209 mg/dL (74-106); Potassium 4.9 mmol/L (3.5-5.1); Sodium Level 141 mmol/L (136-145)
--- NOTE | 2018-09-04 09:44 | RAD_ITS ---
STUDY: X-RAY CHEST REASON FOR EXAM: Female, 73 years old. Aspiration TECHNIQUE: Frontal and lateral views of the chest. COMPARISON: 09/03/2018. FINDINGS: Elevated right hemidiaphragm, stable. Stable scarring or subsegmental atelectasis in the lower right lung. Left lung is clear. No effusions are seen. Sternal cerclage wires and vascular clips are present from a prior sternotomy and coronary artery bypass graft procedure (CABG). Mild cardiomegaly. Pacer leads are seen in the right atrium, right ventricle, and coronary sinus. Normal mediastinum and april. Normal visualized pulmonary arteries. Normal visualized aortic arch and descending thoracic aorta. There are diffuse degenerative changes of the visualized thoracic spine. There is demineralization. There are thoracolumbar compression fractures that appear stable. Normal visualized ribs, clavicles, and shoulders. There is no demonstrated abnormality of the visualized soft tissue structures of the upper abdomen. RAD/Chest PA and Lateral IMPRESSION: No definite change. Continued atelectasis in the lower right lung. Electronically Signed: Antonio Hebert MD at 16:55 EST , Service support ,
[2018-09-04] MEDS: Isosorbide Mononitrate 60 MG Tablet PO (10:18)
[2018-09-04] MEDS: Gabapentin 600 MG Tablet PO (10:18)
[2018-09-04] MEDS: Acetaminophen 325 MG Tablet 650 MG PO (10:19)
[2018-09-04] MEDS: Lisinopril 5 MG Tablet PO (10:19)
[2018-09-04] MEDS: Metoprolol(XL)Succ 25 MG Tablet PO (10:19)
[2018-09-04] MEDS: Allopurinol 100 MG Tablet PO (10:19)
[2018-09-04] MEDS: Ranolazine 500 MG Tablet PO (10:19)
[2018-09-04] MEDS: Famotidine 20 MG Tablet PO (10:19)
[2018-09-04 11:11] LABS: Bedside Glucose 200 mg/dL (70-110)
[2018-09-04] MEDS: Insulin Lispro 100 UNIT/ML INSULN.PEN SC (11:13)
[2018-09-04 12:00] LABS: Bedside Glucose 248 mg/dL (70-110)
--- NOTE | 2018-09-04 12:57 | PCM.PN.CARD ---
Subjectve: The patient notes her breathing has improved. She denies ongoing chest discomfort. Objective: Vital Signs Temp Pulse Resp BP Pulse Ox 98.0 F 64 12 138/69 H 91 09/04/18 09:30 09/04/18 11:14 09/04/18 09:30 09/04/18 09:30 09/04/18 11:44 Oxygen Flow Rate (L/min) 2 Oxygen Delivery Method Room Air Weight: 176 lb 2.389 oz Body Mass Index (BMI) 34.5 Finger Stick Blood Glucose 119 Intake and Output for Last 24 Hours 09/02/18 09/03/18 09/04/18 23:59 23:59 23:59 Intake Total 341.2 / 341.2 1321 / 1321 375 / 375 Output Total 900 / 900 1015 / 1015 Balance 341.2 / 341.2 421 / 421 -640 / -640 General: Awake, Alert, Oriented x 3, Cooperative, No Acute Distress, Obese HEENT: Atraumatic, Normocephalic, PERRL, EOMI, Sclera Non Icteric Oral: Moist Mucosa Neck: Supple, Good ROM, No JVD Lungs: Diminished Tirso Bases Cardiovascular: Regular Rhythm, Normal S1, Normal S2 Abdomen: Bowel Sounds Present, Soft, Non Tender Extremities: No edema 09/04/18 06:35: PT 27.2 H, INR 2.5 09/04/18 06:35: Sodium 141, Potassium 4.9, Chloride 102, Carbon Dioxide 34.0 H, Anion Gap 5, BUN 19 H, Creatinine 0.90, Est GFR (MDRD) Af Amer 78, Est GFR (MDRD) Non-Af 65, BUN/Creatinine Ratio 21.0 H, Glucose 209 H, Calcium 8.9 09/04/18 06:35: WBC 5.6, RBC 4.52, Hgb 13.5, Hct 43.3, MCV 95.8, MCH 29.9, MCHC 31.2 L, RDW 14.0, RDW Differential 47.8 H, Plt Count 140 L, MPV 12.7 H Rhythm: Electronic ventricular paced rhythm ECHO: Preliminary evaluation: Diminished LV systolic function; estimated LVEF of approximately 25%; valvular heart disease; please see official report Medical Necessity - Tobacco Use Smoking Status: Never smoker Tobacco Use: Non-smoker Assessment/Plan 1. Acute on chronic systolic CHF The patient appears, potentially from her dietary indiscretion, has developed acute on chronic systolic CHF. At the present time she will continue to be followed. She will continue medical management. This does include IV diuretic therapy. Hopefully this will help with her volume overload and associated symptoms. 2. Ischemic mediated cardiomyopathy The patient does have an underlying ischemic mediated cardiomyopathy. She now presents with acute on chronic systolic CHF. She will continue to be monitored. Her echocardiogram demonstrates diminished LV systolic function with an estimated LVEF of approximately 25%. She will continue medical management. 3. CAD status post CABG The patient has undergone noninvasive and invasive evaluation in the past. It appears based on her previous invasive evaluation that she has have evidence of SVG graft closure to the OM and the RCA systems. Apparently she was not thought to be a candidate for additional revascularization therapy. Thus she will continue medical management. 4. ICD He does have a biventricular ICD. It was interrogated earlier this day. It appears to be functioning appropriately. 5. Valvular heart disease The patient does have underlying valvular heart disease. There is concern based upon the echocardiographic studies of an element of aortic valve stenosis being moderate to severe based upon a combination of her gradients and her aortic valve area. Thus at the present time the patient will continue medical management. Depending upon her clinical course she may need to be considered over time as to whether or not she is a candidate for further aortic valve evaluation and/or intervention-from a percutaneous standpoint. 6. Hyperlipidemia She we will continue lipid-lowering therapy as deemed appropriate. 7. Hypertension She will continue to have her blood pressure monitored. Her medicines can be adjusted as needed. 8. Secondary pulmonary hypertension There is a report of a history of secondary pulmonary hypertension. Based upon her echocardiographic studies, which are of diminished quality, her estimated RV systolic pressure is approximately 36 mmHg which would be mildly elevated. 9. Hypercoagulable state He is on anticoagulant therapy. Her INR is therapeutic at this time. This note was generated using a voice recognition system and there may be incorrect words, spelling or punctuation that were not noted when reviewing the office note prior to saving.
[2018-09-04] MEDS: Furosemide 40 MG/4 ML Vial IV (14:15)
--- NOTE | 2018-09-04 16:14 | PCM.DC ---
- Discharge Diagnoses Current Active Problems: Current Active and Chronic Problems (Last Reviewed 07/18/18 @ 15:36 by Marco Antonio Sherwood MD) Chest pain (Acute) CAD (coronary artery disease) (Chronic) You will use the following diet at home:: Cardiac Discharge Activity: Return to Normal Activity Call your doctor if you observe: Shortness of breath, Dizziness, Fainting spells, Chest pain Allergies/Adverse Reactions: Allergies latex Allergy (Severe, Verified 07/18/18 14:05) Swelling Medications to take at Discharge Ergocalciferol [Vitamin D] 50,000 unit PO QMONTH 05/09/16 Insulin Glargine,Hum.rec.anlog [Lantus] 40 unit SQ DAILY 05/09/16 lisinopril 5 mg tablet 5 mg PO QDAY 08/19/17 Allopurinol [Zyloprim] 100 mg PO DAILY 08/29/17 nitroglycerin 0.4 mg sublingual tablet 0.4 mg SUBLINGUAL Q5M PRN 09/20/17 aspirin 81 mg tablet,delayed release 81 mg PO QHS 10/02/17 pravastatin 40 mg tablet 80 mg PO QHS tab 10/02/17 furosemide 40 mg tablet 40 mg PO BID 03/25/18 gabapentin 600 mg tablet 600 mg PO QDAY 04/01/18 metoprolol succinate ER 25 mg tablet,extended release 24 hr 25 mg PO BID tab 04/01/18 Warfarin [Coumadin] 3.5 mg PO DAILY 04/26/18 Metformin HCl 500 mg PO DAILY #0 04/27/18 Colchicine [Colcrys] 0.6 mg PO DAILY PRN 09/02/18 Isosorbide Mononitrate [Isosorbide Mononitrate ER] 60 mg PO DAILY 09/02/18 Paroxetine HCl [Paxil] 20 mg PO QHS 09/02/18 Ranitidine [Zantac] 150 mg PO DAILY 09/02/18 Simvastatin [Zocor] 20 mg PO QHS 09/02/18 Ranolazine [Ranexa] 500 mg PO BID #60 tablet 09/04/18 The following prescriptions were given: Ranolazine [Ranexa] 500 mg PO BID #60 tablet Primary Care Physician: Ranjan Hyatt Chi, MD [Primary Care Provider] - Please follow up with your Primary Care Physician in: 1 Week Test Results: Test results from this visit will be discussed in further detail at your follow-up appointment, if applicable. Please Follow Up With: Marco Antonio Sherwood MD When: 1-2 Weeks, may see [employer] OPERATOR/PA Proposed Discharge Date: 09/04/18
--- NOTE | 2018-09-04 16:26 | DS.PCM_ITS ---
Discharge Date and Diagnosis Date of Admission: 09/02/18 Date of Discharge: 09/04/18 - Primary Discharge Diagnosis Active and Suspected Problems (Last Reviewed 07/18/18 @ 15:36 by Marco Antonio Sherwood MD) 1. Acute on chronic systolic CHF/ischemic cardiomyopathy 2. Acute on chronic chest pain with underlying CAD with prior CABG, not a candidate for further intervention-continue medical management. Ranexa added. - Secondary Discharge Diagnosis Chronic Problems (Last Reviewed 07/18/18 @ 15:36 by Marco Antonio Sherwood MD) CAD (coronary artery disease) (Chronic) Secondary pulmonary arterial hypertension (Chronic) Essential (primary) hypertension (Chronic) Automatic implantable cardiac defibrillator in situ (Chronic 12/21/13) Acute kidney failure (Chronic) Atherosclerosis of coronary artery bypass graft without angina pectoris (Chronic) CABG: RIVERA-Distal LAD, SVG-Prox LAD, SVG-OM1, SVG-Left PDA 12/2001; Ischemic cardiomyopathy (Chronic) Chronic systolic congestive heart failure (Chronic) Dyspnea on exertion (Chronic) HLD (hyperlipidemia) (Chronic) Myocardial infarction (Chronic) H/O coronary artery bypass surgery (Chronic 12/02/01) CABG: RIVERA-Distal LAD, SVG-Prox LAD, SVG-OM1, SVG-Left PDA 12/2001; Hypercoagulable state, primary (Chronic) RBBB (right bundle branch block) (Chronic) NSTEMI (non-ST elevated myocardial infarction) (Chronic) Obesity (Chronic) Anti-phospholipid syndrome (Chronic) Hospital Course and Treatment Imaging Results: Dr. Swan- Cardiology Operations: None Procedures: 2-D Echocardiogram Summary of Care Provided: The patient is a 73 year old F admitted 09/02/18 due chest pain, shortness of breath. She has a past medical history of chronic systolic CHF, ischemic cardiomyopathy status post AICD/pacemaker, CAD status post CABG x4, hypertension, hyperlipidemia, GERD, obesity, antiphospholipid syndrome on Coumadin therapy, type 2 diabetes mellitus. Patient was managed with IV Lasix f or acute on chronic systolic CHF. Repeat echocardiogram showed an EF of 25%, mild mitral valve insufficiency, moderate tricuspid valve insufficiency, moderate to severe aortic valve stenosis, RVSP estimated to be 36 mmHg. Similar to prior echo. Patient follows with Dr. Sherwood. Patient will continue medical management. She was started on Ranexa for chronic chest pain. She had been on this in the past which was discontinued due to cost reasons. She is now able to continue taking due to insurance changes. She states this has helped with her chest pain in the past. Other chronic medical conditions as noted above are stable at this time. He should follow-up with cardiology as scheduled. Follow- up with primary care physician in 1 week. General: Alert, Oriented x3, Cooperative HEENT: Atraumatic, PERRLA, EOMI, Normocephalic Neck: Supple, No JVD, Negative Carotid Bruits Lungs: Clear to auscultation, Diminished Cardiovascular: Regular rate, Regular Rhythm, Normal S1, Normal S2, No murmurs Abdomen: Bowel Sounds Present, Soft, Non Tender, Non-Distended Extremities: No clubbing, No cyanosis, No edema, Capillary Refill Less than 3 Seconds Skin: No rashes, No breakdown Musculoskeletal: No Tenderness to Palpation of Joints or Extremities Neurological: Cranial nerves II-XII grossly intact, Neuro grossly intact Psych/Mental Status: Normal Affect, Appropriate Patient seen and examined prior to discharge. Physical assessment as noted above. Patient is stable for discharge with follow up recommendations as noted above. This patient was seen by SASHA Rhodes under the supervision of Dr. Trammell. - Physical Exam Vital Signs Temp Pulse Resp BP Pulse Ox 97.9 F 61 14 99/54 L 92 09/04/18 15:26 09/04/18 15:26 09/04/18 15:26 09/04/18 15:26 09/04/18 15:26 Oxygen Flow Rate (L/min) 2 Oxygen Delivery Method Room Air Weight: 176 lb 2.389 oz Body Mass Index (BMI) 34.5 Finger Stick Blood Glucose 119 Intake and Output for Last 24 Hours 09/02/18 09/03/18 09/04/18 23:59 23:59 23:59 Intake Total 341.2 / 341.2 1321 / 1321 375 / 375 Output Total 900 / 900 1015 / 1015 Balance 341.2 / 341.2 421 / 421 -640 / -640 Laboratory Tests Past 24 Hrs 09/04/18 09/04/18 09/04/18 06:35 06:35 06:35 WBC 5.6 RBC 4.52 Hgb 13.5 Hct 43.3 MCV 95.8 MCH 29.9 MCHC 31.2 L RDW 14.0 RDW Differential 47.8 H Plt Count 140 L MPV 12.7 H PT 27.2 H INR 2.5 Sodium 141 Potassium 4.9 Chloride 102 Carbon Dioxide 34.0 H Anion Gap 5 BUN 19 H Creatinine 0.90 Estim Creat Clear Calc 69.17 Est GFR (MDRD) Af Amer 78 Est GFR (MDRD) Non-Af 65 BUN/Creatinine Ratio 21.0 H Glucose 209 H Calcium 8.9 POC Glucose 09/04/18 09/04/18 09/03/18 11:13 06:44 20:56 POC Glucose 248 H 200 H 294 H 09/03/18 16:42 POC Glucose 245 H Discharge Diet: Low fat/ Low Cholesterol, 8 Cup Fluid Restriciton Discharge Activity: Return to Normal Activity Call your doctor if you observe: Shortness of breath, Dizziness, Fainting spells, Chest pain Home Medications: Medications to take at Discharge Ergocalciferol [Vitamin D] 50,000 unit PO QMONTH 05/09/16 Insulin Glargine,Hum.rec.anlog [Lantus] 40 unit SQ DAILY 05/09/16 lisinopril 5 mg tablet 5 mg PO QDAY 08/19/17 Allopurinol [Zyloprim] 100 mg PO DAILY 08/29/17 nitroglycerin 0.4 mg sublingual tablet 0.4 mg SUBLINGUAL Q5M PRN 09/20/17 aspirin 81 mg tablet,delayed release 81 mg PO QHS 10/02/17 pravastatin 40 mg tablet 80 mg PO QHS tab 10/02/17 furosemide 40 mg tablet 40 mg PO BID 03/25/18 gabapentin 600 mg tablet 600 mg PO QDAY 04/01/18 metoprolol succinate ER 25 mg tablet,extended release 24 hr 25 mg PO BID tab 04/01/18 Warfarin [Coumadin] 3.5 mg PO DAILY 04/26/18 Metformin HCl 500 mg PO DAILY #0 04/27/18 Colchicine [Colcrys] 0.6 mg PO DAILY PRN 09/02/18 Isosorbide Mononitrate [Isosorbide Mononitrate ER] 60 mg PO DAILY 09/02/18 Paroxetine HCl [Paxil] 20 mg PO QHS 09/02/18 Ranitidine [Zantac] 150 mg PO DAILY 09/02/18 Simvastatin [Zocor] 20 mg PO QHS 09/02/18 Ranolazine [Ranexa] 500 mg PO BID #60 tablet 09/04/18 Following Prescrptions Were Given to Patient: Ranolazine [Ranexa] 500 mg PO BID #60 tablet Primary Care Physician: Ranjan Hyatt Chi, MD [Primary Care Provider] - Please follow up with your Primary Care Physician in: 1 Week Please Follow Up With: Marco Antonio Sherwood MD When: 1-2 Weeks, may see [employer] ENGINEER HELPER/PA Disposition: Home Minutes spent on discharge:: 35 Patient Condition:: Stable Medical Necessity - Tobacco Use Smoking Status: Never smoker Tobacco Use: Non-smoker Meaningful Use Info Meaningful Use Diagnoses (Choose all that apply): CHF - CHF KWAN/ARB ordered at discharge?: Yes Documented LVEF (%): 25
[2018-09-04] MEDS: Warfarin 0.5 MG Tablet PO (16:36)
--- NOTE | 2018-09-05 10:31 | CASEMGMT ---
SW utilized prescription assistance program for patient for Ranexa. Patient does not have prescription coverage. She was given information on Ranexa's patient assistance program and Prescription Hope. RN CM, Rachel Campbell communicated details with patient. Katie HIDALGO MSW
--- NOTE | 2018-09-05 10:35 | CASEMGMT ---
Pt was discharged later in the day yesterday and this RN CM was not able to check flores on Ranexa for pt. Call to [employer] and per tech, pt's cost will be $381.92 as she does not have Rx coverage. Call to pt to notify of same and see if she can afford at this time. Also, f/u phone call completed at this time, see below. Pt is unsure if she can afford this flores. Advised pt that if pt is ok with it, we can have Ranexa transferred to our pharmacy here at the hospital and use our Rx assist program for her at this time. Pt voices understanding and is ok with this at this time. Reinforced with pt to call 1 800 number for Ranexa website and to complete Rx hope enrollment form, pt voices understanding. Per Dr. Trammell, she had stressed to pt the importance of this med as she can not have re-vascuralization. Pt voiced the importance to this RN CM at this time. Kunal RUSSELL aware of all and voices understanding. Kunal RUSSELL will complete Rx assist and called [facility] retail pharmacy to have script transferred from [facility] at this time. Bridgett in [facility] retail pharmacy is aware to call pt when script is ready. RN CM Discharge F/U phone call LACE: 9 Strata: 3 Discharge date: 09/04/18 Call date: 09/05/18 Call time: 1014 Admission dx: Chest pain Pt states has been 'tired' since discharge but that it's 'improving.' Pt states no questions regarding discharge instructions or medications at this time. See above regarding prescription assist. Pt states that she will be making f/u appts. Pt states no suggestions for [facility] at this time. Pt voices no further questions/concerns/needs at this time. Pt is aware that she can call this RN CM back if any further questions/concerns/needs arise. SStaten RN CM
== END 2018-09-04 17:20 | disposition home or self-care (01) | DRG 292 ==
LOC: ED 18:21 → PCU 18:26
PROVIDERS: Physician Assistant; Admitting Provider Family Medicine; Emergency Provider Emergency Medicine; Family Provider Family Medicine Geriatric Medicine; PCP Family Medicine Geriatric Medicine; Visit Provider Internal Medicine
DX: I11.0 Hypertensive heart disease with heart failure (principal); D68.61 Antiphospholipid syndrome; I24.8 Other forms of acute ischemic heart disease; I50.23 Acute on chronic systolic (congestive) heart failure; E78.5 Hyperlipidemia, unspecified; K21.9 Gastro-esophageal reflux disease without esophagitis; I25.5 Ischemic cardiomyopathy; E66.9 Obesity, unspecified; I27.20 Pulmonary hypertension, unspecified; E11.9 Type 2 diabetes mellitus without complications; R07.89 Other chest pain; I25.10 Atherosclerotic heart disease of native coronary artery without angina pectoris; Z95.810 Presence of automatic (implantable) cardiac defibrillator; Z95.1 Presence of aortocoronary bypass graft; Z79.01 Long term (current) use of anticoagulants; Z68.34 Body mass index [BMI] 34.0-34.9, adult; Z79.4 Long term (current) use of insulin; I25.2 Old myocardial infarction; I34.0 Nonrheumatic mitral (valve) insufficiency; I35.0 Nonrheumatic aortic (valve) stenosis; I07.1 Rheumatic tricuspid insufficiency
CPT/HCPCS: 36415; 71045; 71046; 80048; 80061; 82962; 83735; 83880; 84484; 85025; 85027; 85610; 93005; 93306; 97166; 97802; 99285; J7030; Q9957; A4216; C8929; J1940; J2405

== ENCOUNTER → 2018-09-25 16:05 | Outpatient (CLI) | payer MEDICARE, SELFPAY ==
[2018-09-02 18:59] VITALS: BMI 34.5
[2018-09-25 17:00] LABS: Absolute Neutrophil Count 4.7 X10^3/uL (2.0-7.7); Basophil# 0.04 X10^3/uL; Basophil% 0.7 % (0-1); Eosinophils% 1.6 % (0-5); Hematocrit 43.2 % (37-47); Hemoglobin 13.9 g/dl (12.0-15.0); Lymphocyte % 13.1 % (19-41); Mean Corp Hgb Conc 32.2 g/gl (32-36); Mean Corpuscular Hgb 29.5 pg (27.0-32.0); Mean Corpuscular Volume 91.7 fL (81-99); Mean Platelet Vol. 12.5 fl (6.2-12.0); Monocyte# 0.47 X10^3/uL; Monocyte% 7.7 % (0-10); Neutrophil % 76.7 % (47-70); Platelet Count 175 K/mm3 (150-450); RBC Distribution Width CV 14.4 % (11.6-14.6); RBC Distribution Width SD 47.3 fl (35.1-43.9); Red Blood Count 4.71 M/mm3 (4.2-5.4); White Blood Count 6.1 K/mm3 (4.4-11.0)
[2018-09-25 17:10] LABS: POSITIVE COUNT NO; POSITIVE DIFFERENTIAL NO; POSITIVE MORPHOLOGY NO
[2018-09-25 17:13] LABS: Anion Gap 7 (5-15); BUN 19 mg/dL (7-18); BUN/Creat Ratio 23.7 RATIO (10-20); Calcium,Total 8.6 mg/dL (8.5-10.1); Chloride 102 mmol/L (98-107); EST Glomerular Filtration Rate 74 mL/min (>60); Est Glom Filt Rate - Afr Amer 90 mL/min (>60); Glucose 172 mg/dL (74-106); Potassium 3.7 mmol/L (3.5-5.1); Sodium Level 140 mmol/L (136-145)
== END ==
PROVIDERS: Family Provider Family Medicine Geriatric Medicine; PCP Family Medicine Geriatric Medicine; Visit Provider Family Medicine Geriatric Medicine
DX: I50.23 Acute on chronic systolic (congestive) heart failure (principal)
CPT/HCPCS: 36415; 80048; 85025

== ENCOUNTER → 2018-10-09 15:24 | Outpatient (CLI) | payer MEDICARE, SELFPAY ==
[2018-09-02 18:59] VITALS: BMI 34.5
[2018-10-09 17:21] LABS: Absolute Lymphocyte Count 0.88 X10^3/ul (0.83-4.51); Absolute Neutrophil Count 4.8 X10^3/uL (2.0-7.7); Basophil# 0.03 X10^3/uL; Basophil% 0.5 % (0-1); Eosinophil# 0.08 X10^3/uL; Eosinophils% 1.3 % (0-5); Hematocrit 45.5 % (37-47); Hemoglobin 14.3 g/dl (12.0-15.0); Lymphocyte # 0.88 X10^3/ul (4.0); Lymphocyte % 13.8 % (19-41); Mean Corp Hgb Conc 31.4 g/gl (32-36); Mean Corpuscular Volume 92.3 fL (81-99); Mean Platelet Vol. 12.6 fl (6.2-12.0); Monocyte# 0.63 X10^3/uL; Monocyte% 9.9 % (0-10); Neutrophil # 4.75 X10^3/uL (2.7-7.7); Neutrophil % 74.3 % (47-70); Platelet Count 179 K/mm3 (150-450); RBC Distribution Width CV 15.2 % (11.6-14.6); RBC Distribution Width SD 51.4 fl (35.1-43.9); Red Blood Count 4.93 M/mm3 (4.2-5.4); White Blood Count 6.4 K/mm3 (4.4-11.0)
[2018-10-09 17:49] LABS: POSITIVE COUNT NO; POSITIVE DIFFERENTIAL NO; POSITIVE MORPHOLOGY NO
== END ==
PROVIDERS: Family Provider Family Medicine Geriatric Medicine; PCP Family Medicine Geriatric Medicine; Visit Provider Family Medicine Geriatric Medicine
DX: I50.23 Acute on chronic systolic (congestive) heart failure (principal); N39.0 Urinary tract infection, site not specified
CPT/HCPCS: 36415; 80048; 85025; 87077; 87086; 87088; 87186

== ENCOUNTER → 2018-10-13 14:58 | Outpatient (CLI) | payer MEDICARE, SELFPAY ==
[2018-09-02 18:59] VITALS: BMI 34.5
[2018-10-13 16:43] LABS: Anion Gap 11 (5-15); BUN 16 mg/dL (7-18); BUN/Creat Ratio 19.7 RATIO (10-20); Chloride 103 mmol/L (98-107); Creatinine, Serum 0.81 mg/dL (0.55-1.02); EST Glomerular Filtration Rate 73 mL/min (>60); Est Glom Filt Rate - Afr Amer 89 mL/min (>60); Glucose 99 mg/dL (74-106); Potassium 3.8 mmol/L (3.5-5.1); Sodium Level 143 mmol/L (136-145)
== END ==
PROVIDERS: Family Provider Family Medicine Geriatric Medicine; PCP Family Medicine Geriatric Medicine; Visit Provider Family Medicine Geriatric Medicine
DX: I50.23 Acute on chronic systolic (congestive) heart failure (principal)
CPT/HCPCS: 80048

== ENCOUNTER → 2018-10-23 15:18 | Outpatient (CLI) | payer MEDICARE, SELFPAY ==
[2018-09-02 18:59] VITALS: BMI 34.5
[2018-10-23 16:28] LABS: Absolute Lymphocyte Count 0.88 X10^3/ul (0.83-4.51); Absolute Neutrophil Count 4.2 X10^3/uL (2.0-7.7); Basophil# 0.03 X10^3/uL; Basophil% 0.5 % (0-1); Eosinophil# 0.08 X10^3/uL; Eosinophils% 1.4 % (0-5); Hematocrit 46.5 % (37-47); Hemoglobin 14.8 g/dl (12.0-15.0); Lymphocyte # 0.88 X10^3/ul (4.0); Lymphocyte % 15.4 % (19-41); Mean Corp Hgb Conc 31.8 g/gl (32-36); Mean Corpuscular Hgb 29.2 pg (27.0-32.0); Mean Corpuscular Volume 91.7 fL (81-99); Mean Platelet Vol. 12.6 fl (6.2-12.0); Monocyte# 0.52 X10^3/uL; Monocyte% 9.1 % (0-10); Neutrophil # 4.21 X10^3/uL (2.7-7.7); Neutrophil % 73.4 % (47-70); Platelet Count 167 K/mm3 (150-450); RBC Distribution Width CV 15.6 % (11.6-14.6); RBC Distribution Width SD 51.5 fl (35.1-43.9); Red Blood Count 5.07 M/mm3 (4.2-5.4); White Blood Count 5.7 K/mm3 (4.4-11.0)
[2018-10-23 16:32] LABS: Anion Gap 7 (5-15); BUN 20 mg/dL (7-18); Calcium,Total 8.8 mg/dL (8.5-10.1); Chloride 104 mmol/L (98-107); Creatinine, Serum 0.74 mg/dL (0.55-1.02); EST Glomerular Filtration Rate 82 mL/min (>60); Est Glom Filt Rate - Afr Amer 99 mL/min (>60); Glucose 122 mg/dL (74-106); POSITIVE COUNT NO; POSITIVE DIFFERENTIAL NO; POSITIVE MORPHOLOGY NO; Potassium 4.3 mmol/L (3.5-5.1); Sodium Level 140 mmol/L (136-145)
== END ==
PROVIDERS: Family Provider Family Medicine Geriatric Medicine; PCP Family Medicine Geriatric Medicine; Visit Provider Family Medicine Geriatric Medicine
DX: I50.9 Heart failure, unspecified (principal)
CPT/HCPCS: 36415; 80048; 85025

== ENCOUNTER → 2018-10-30 14:50 | Outpatient (CLI) | payer MEDICARE, SELFPAY ==
[2018-10-24 14:38] VITALS: BMI 34.5
[2018-10-30 15:33] LABS: Absolute Lymphocyte Count 0.66 X10^3/ul (0.83-4.51); Absolute Neutrophil Count 5.2 X10^3/uL (2.0-7.7); Basophil# 0.03 X10^3/uL; Basophil% 0.5 % (0-1); Eosinophil# 0.05 X10^3/uL; Eosinophils% 0.8 % (0-5); Hematocrit 43.5 % (37-47); Hemoglobin 13.5 g/dl (12.0-15.0); Lymphocyte # 0.66 X10^3/ul (4.0); Lymphocyte % 10.2 % (19-41); Mean Corpuscular Hgb 28.7 pg (27.0-32.0); Mean Corpuscular Volume 92.4 fL (81-99); Mean Platelet Vol. 12.9 fl (6.2-12.0); Monocyte# 0.46 X10^3/uL; Monocyte% 7.1 % (0-10); Neutrophil # 5.24 X10^3/uL (2.7-7.7); Neutrophil % 81.2 % (47-70); POSITIVE COUNT NO; POSITIVE DIFFERENTIAL NO; POSITIVE MORPHOLOGY NO; Platelet Count 184 K/mm3 (150-450); RBC Distribution Width CV 15.5 % (11.6-14.6); RBC Distribution Width SD 52.5 fl (35.1-43.9); Red Blood Count 4.71 M/mm3 (4.2-5.4); White Blood Count 6.5 K/mm3 (4.4-11.0)
[2018-10-30 16:03] LABS: Anion Gap 9 (5-15); BUN 26 mg/dL (7-18); BUN/Creat Ratio 22.2 RATIO (10-20); Calcium,Total 8.8 mg/dL (8.5-10.1); Chloride 101 mmol/L (98-107); Creatinine, Serum 1.17 mg/dL (0.55-1.02); EST Glomerular Filtration Rate 48 mL/min (>60); Est Glom Filt Rate - Afr Amer 58 mL/min (>60); Glucose 327 mg/dL (74-106); Potassium 5.4 mmol/L (3.5-5.1); Sodium Level 139 mmol/L (136-145)
== END ==
PROVIDERS: Family Provider Family Medicine Geriatric Medicine; PCP Family Medicine Geriatric Medicine; Visit Provider Family Medicine Geriatric Medicine
DX: I50.23 Acute on chronic systolic (congestive) heart failure (principal)
CPT/HCPCS: 36415; 80048; 85025

== ENCOUNTER → 2018-11-24 15:11 | Outpatient (CLI) | payer MEDICARE, SELFPAY ==
[2018-11-21 14:29] VITALS: BMI 32.2
[2018-11-24 18:16] LABS: International Normalized Ratio 1.3; Prothrombin Time (Protime)PT. 15.6 SECONDS (11.7-14.9)
== END ==
PROVIDERS: Family Provider Family Medicine Geriatric Medicine; PCP Family Medicine Geriatric Medicine; Visit Provider Family Medicine Geriatric Medicine
DX: N39.0 Urinary tract infection, site not specified (principal); D64.9 Anemia, unspecified; Z79.01 Long term (current) use of anticoagulants
CPT/HCPCS: 36415; 80048; 85610; 87077; 87086; 87088; 87186

== ENCOUNTER → 2018-12-03 14:27 | Outpatient (CLI) | payer MEDICARE, SELFPAY ==
[2018-11-21 14:29] VITALS: BMI 32.2
[2018-12-03 17:14] LABS: Absolute Lymphocyte Count 0.97 X10^3/ul (0.83-4.51); Absolute Neutrophil Count 3.5 X10^3/uL (2.0-7.7); Basophil# 0.06 X10^3/uL; Basophil% 1.2 % (0-1); Eosinophil# 0.14 X10^3/uL; Eosinophils% 2.7 % (0-5); Hemoglobin 14.5 g/dl (12.0-15.0); Lymphocyte # 0.97 X10^3/ul (4.0); Lymphocyte % 18.8 % (19-41); Mean Corp Hgb Conc 32.2 g/gl (32-36); Mean Corpuscular Hgb 28.5 pg (27.0-32.0); Mean Corpuscular Volume 88.4 fL (81-99); Mean Platelet Vol. 12.3 fl (6.2-12.0); Monocyte% 9.7 % (0-10); Neutrophil # 3.49 X10^3/uL (2.7-7.7); Neutrophil % 67.4 % (47-70); Platelet Count 211 K/mm3 (150-450); RBC Distribution Width SD 51.7 fl (35.1-43.9); Red Blood Count 5.09 M/mm3 (4.2-5.4); White Blood Count 5.2 K/mm3 (4.4-11.0)
[2018-12-03 17:43] LABS: ALB/GLOB Ratio 0.8 RATIO (0.9-2.4); AST(SGOT) 35 U/L (15-37); Alanine Aminotransfer ALT/SGPT 32 U/L (13-56); Albumin, Serum 3.1 g/dL (3.2-5.0); Alkaline Phosphatase 96 U/L (45-117); Anion Gap 6 (5-15); BUN 22 mg/dL (7-18); BUN/Creat Ratio 23.6 RATIO (10-20); Chloride 104 mmol/L (98-107); Creatinine, Serum 0.93 mg/dL (0.55-1.02); EST Glomerular Filtration Rate 62 mL/min (>60); Est Glom Filt Rate - Afr Amer 76 mL/min (>60); Globulin 4.1 g/dL (2.2-4.2); Glucose 209 mg/dL (74-106); Potassium 4.7 mmol/L (3.5-5.1); Protein, Total 7.2 g/dL (6.4-8.2); Sodium Level 139 mmol/L (136-145); Thyroid Stim Hormone (TSH) 1.42 uIU/mL (0.358-3.74); Uric Acid 6.4 mg/dL (2.6-6.0)
[2018-12-03 17:58] LABS: POSITIVE COUNT NO; POSITIVE DIFFERENTIAL NO; POSITIVE MORPHOLOGY NO
== END ==
PROVIDERS: Family Provider Family Medicine Geriatric Medicine; PCP Family Medicine Geriatric Medicine; Visit Provider Family Medicine Geriatric Medicine
DX: E11.9 Type 2 diabetes mellitus without complications (principal); E55.9 Vitamin D deficiency, unspecified; M10.9 Gout, unspecified
CPT/HCPCS: 36415; 80053; 82306; 84443; 84550; 85025

== ENCOUNTER → 2018-12-15 13:33 | Outpatient (CLI) | payer MEDICARE, SELFPAY ==
[2018-11-21 14:29] VITALS: BMI 32.2
--- NOTE | 2018-12-15 13:36 | ECHOCS_ITS ---
Reason For Study: SOB Procedure This was a 2D Doppler, Color Flow transthoracic echocardiogram. Exam performed in department. Left Ventricle Normal LV size. Severe segmental systolic dysfunction (see wall motion). The estimated ejection fraction is 25 %. Stage 3 diastolic dysfunction. [place] : Akinetic. Basal inferoseptal: Normal. Basal anteroseptal: Normal. The rest of the wall segments are hypokinetic. Right Ventricle Normal RV size. ICD or pacer leads identified within the right ventricle. Normal systolic function. Atria The left atrium is mildly enlarged. Normal right atrium. Mitral Valve Bileaflet diffuse mitral valve thickening. Mild mitral annular calcification extending into the posterior leaflet. Ruptured chord mitral valve. Moderate papillary muscle dysfunction of the mitral valve. Mild (1+) eccentric mitral valve insufficiency. Tricuspid Valve Normal tricuspid valve. Mild to moderate (1-2+) tricuspid valve insufficiency. Pulmonary artery systolic pressure is 50 mmHg. Moderate pulmonary hypertension. Aortic Valve Trisinus/trileaflet aortic valve. Moderate diffuse aortic valve calcification. Mild (1+) eccentric aortic valve insufficiency. Pulmonic Valve Normal pulmonic valve. Mild (1+) pulmonic valve insufficiency. Great Vessels Normal aortic root. The pulmonary artery is normal size. Normal inferior vena cava. Pericardium/Pleural No pericardial effusion. Medication 22 gauge I.V. with prn adaptor inserted into right arm. Diluted definity 3ml given slow IV push to enhance endocardial definition. MMode/2D Measurements & Calculations LVIDd: 4.9 cm IVSd: 1.2 cm LVOT diam: 1.9 cm LVIDs: 4.0 cm LVPWd: 1.1 cm RVDd: 3.4 cm FS: 19.5 % LVOT area: 2.7 cm2 Ao root diam: 2.8 cm LAV(MOD-bp): 64.3 ml LA A4 area: 20.8 cm2 LAV(MOD-bp) Indexed: 37.0 ml/m2 LAV(MOD-sp2): 66.1 ml LAV(MOD-sp4): 60.9 ml LA dimension(2D): 4.8 cm RA A4 area: 12.9 cm2 Doppler Measurements & Calculations MV E max baljit: 109.0 cm/sec Lat Peak E' Baljit: 1.9 cm/sec Med Peak E' Baljit: 1.5 cm/sec MV A max baljit: 44.3 cm/sec E/E' lat: 57.2 E/E' med: 71.8 MV E/A: 2.5 Ao V2 max: 318.3 cm/sec AI max baljit: 381.5 cm/sec LV V1 max: 81.4 cm/sec Ao max P.6 mmHg AI max P.4 mmHg LV V1 max P.7 mmHg Ao V2 mean: 235.5 cm/sec AI dec slope: 246.4 cm/sec2 LV V1 mean P.3 mmHg Ao mean P.2 mmHg AI P1/2t: 453.5 msec LV V1 mean: 54.4 cm/sec Ao V2 VTI: 76.6 cm LV V1 VTI: 18.1 cm CLEOPATRA(I,D): 0.64 cm2 CLEOPATRA(V,D): 0.69 cm2 SV(LVOT): 49.0 ml PA V2 max: 81.8 cm/sec TR max baljit: 341.1 cm/sec TR max P.6 mmHg Interpretation Summary Normal LV size. Severe segmental systolic dysfunction (see wall motion). The estimated ejection fraction is 25 %. Stage 3 diastolic dysfunction. Mild (1+) eccentric mitral valve insufficiency. Moderate pulmonary hypertension. Contrast injection was performed. Ordering Physician: Denver Tran/Marco Antonio Sherwood Referring Physician: Ranjan Hyatt Chi Performed By: Lisy Villa, KENNY
== END ==
PROVIDERS: Family Provider Family Medicine Geriatric Medicine; PCP Family Medicine Geriatric Medicine; Referring Provider Nurse Practitioner Family; Visit Provider Nurse Practitioner Family
DX: I35.2 Nonrheumatic aortic (valve) stenosis with insufficiency (principal); I25.5 Ischemic cardiomyopathy; R06.09 Other forms of dyspnea
CPT/HCPCS: 93306; Q9957; A4216; C8929

== ENCOUNTER → 2018-12-23 | Outpatient (CLI) | payer MEDICARE, SELFPAY ==
[2018-11-21 14:29] VITALS: BMI 32.2
[2018-12-23 16:58] LABS: Absolute Lymphocyte Count 1.04 X10^3/ul (0.83-4.51); Absolute Neutrophil Count 3.8 X10^3/uL (2.0-7.7); Basophil# 0.03 X10^3/uL; Basophil% 0.5 % (0-1); Eosinophil# 0.12 X10^3/uL; Eosinophils% 2.1 % (0-5); Hematocrit 43.1 % (37-47); Hemoglobin 13.9 g/dl (12.0-15.0); Lymphocyte # 1.04 X10^3/ul (4.0); Lymphocyte % 18.4 % (19-41); Mean Corp Hgb Conc 32.3 g/gl (32-36); Mean Platelet Vol. 12.5 fl (6.2-12.0); Monocyte# 0.66 X10^3/uL; Monocyte% 11.7 % (0-10); Neutrophil % 67.1 % (47-70); Platelet Count 196 K/mm3 (150-450); RBC Distribution Width SD 52.5 fl (35.1-43.9); Red Blood Count 4.79 M/mm3 (4.2-5.4); White Blood Count 5.7 K/mm3 (4.4-11.0)
[2018-12-23 17:01] LABS: International Normalized Ratio 2.1; Prothrombin Time (Protime)PT. 23.1 SECONDS (11.7-14.9)
[2018-12-23 17:17] LABS: POSITIVE COUNT NO; POSITIVE DIFFERENTIAL NO; POSITIVE MORPHOLOGY NO
== END | disposition home or self-care (01) ==
LOC: POLAB3 14:55
PROVIDERS: Family Provider Family Medicine Geriatric Medicine; PCP Family Medicine Geriatric Medicine; Visit Provider Family Medicine Geriatric Medicine
DX: D68.59 Other primary thrombophilia (principal)
CPT/HCPCS: 36415; 85025; 85610

== ENCOUNTER 2019-01-18 18:49 | Inpatient (IN) | payer MEDICARE, SELFPAY ==
[2018-11-21 14:29] VITALS: BMI 32.2
[2019-01-18] VITALS (11 sets, daily range): BP systolic 94–185; BP diastolic 47–156; PULSE 59–82; RESP 14–26; TEMP 36.6; O2SAT 92–95; BMI 35.6; BMI 34.6
--- NOTE | 2019-01-18 19:16 | ED.DCSUM_ITS ---
History of Present Illness Chief Complaint: Dizziness Informant: Patient Onset: Today - this AM upon getting out of bed Context: Sudden Onset Timing: Intermittent Quality: spinning, off balance Location: head Current Severity: Moderate Maximum Severity: Severe Worsened by: turning head, position changes Relieved by: remaining still Associated Symptoms: nausea/vomiting Narrative: Patient presenting with vertigo that she has been having episodes of not infrequently for the past 10 years. She admits that she has never brought it up to her doctors but she has been seen in the ER for it from time to time, occasionally has been admitted because of intractable vertigo. She did not fall or hurt herself today but felt like she was going to, felt wobbly while walking. No known history of stroke. Symptoms much worse when turning her head. She had an earache yesterday on the left, and has chronically intermittent tinnitus on the right. No headache. No vision changes or diplopia. No peripheral focal neurologic symptoms today. - Past Medical History (1) Anti-phospholipid syndrome Status: Chronic (2) Automatic implantable cardiac defibrillator in situ Status: Chronic (3) CAD (coronary artery disease) Status: Chronic (4) Chronic systolic congestive heart failure Status: Chronic (5) Essential (primary) hypertension Status: Chronic (6) HLD (hyperlipidemia) Status: Chronic (7) Nonrheumatic aortic (valve) stenosis with insufficiency Status: Chronic (8) Secondary pulmonary arterial hypertension Status: Chronic Past Medical History - Allergies and Home Meds Allergies/Adverse Reactions: Allergies latex Allergy (Severe, Verified 01/18/19 18:50) Swelling Primary Care Physician: Ranjan Hyatt Chi, MD [Primary Care Provider] - Surgical History: appendectomy, cholecystectomy, coronary bypass surgery, hysterectomy, pacemaker implantation Lives: Spouse/ Significant Other Smoking Status: Never smoker - Family History Maternal Family History: Family History (Last Reviewed 11/21/18 @ 14:40 by Verito Thornton) Mother CAD (coronary artery disease) Myocardial infarction, Onset Age: 62 Brother Myocardial infarction CAD (coronary artery disease) Sister Bone cancer Sister CAD (coronary artery disease) Myocardial infarction Hypertension Family History: Reports: Heart Disease Paternal Family History: Family History (Last Reviewed 11/21/18 @ 14:40 by Verito Thornton) Mother CAD (coronary artery disease) Myocardial infarction, Onset Age: 62 Brother Myocardial infarction CAD (coronary artery disease) Sister Bone cancer Sister CAD (coronary artery disease) Myocardial infarction Hypertension Family History: Reports: Heart Disease, - - Father with anti-phospholipid syndrome Sibling Family History: Family History (Last Reviewed 11/21/18 @ 14:40 by Verito Thornton) Mother CAD (coronary artery disease) Myocardial infarction, Onset Age: 62 Brother Myocardial infarction CAD (coronary artery disease) Sister Bone cancer Sister CAD (coronary artery disease) Myocardial infarction Hypertension Family History: Reports: Cancer, Heart Disease, - Review of Systems General: Reports: Malaise. Denies: Chills, Fever, Sweats Eyes: Denies: Visual changes - bilaterally, Diplopia ENT: Reports: Left ear pain - yest; resolved, - - tinnitus right ear intermittently, not today. Denies: Rhinorrhea, Sore throat Cardiovascular: Denies: Chest pain, Palpitations Respiratory: Denies: Dyspnea, Cough, Dyspnea on exertion Gastrointestinal: Reports: Nausea, Vomiting. Denies: Abdominal pain, Diarrhea, Melena, Hematochezia Genitourinary: Denies: Dysuria, Hematuria, Frequency Musculoskeletal: Denies: Neck pain, Back pain, Swelling, Extremity Pain Skin: Denies: Rash, Wounds Neurological: Reports: - - vertigo - see HPI. Denies: Headache, Weakness, Numbness Physical Exam Vital Signs/Narrative: Vital Signs Temp Pulse Resp BP Pulse Ox 01/18/19 18:50 97.8 F 59 L 16 185/156 H 94 Inital Vital Signs reviewed: Yes General: Well nourished, Well developed, No Acute Distress Head: Normocephalic, Atraumatic Eyes: Perrl, EOMI, - - No horizontal, vertical, or rotatory nystagmus. Negative for: Scleral icterus ENT: Moist mucous membranes, No rhinorrhea, TM's clear. Negative for: Nasal congestion, Sinus tenderness Neck: Supple, Nontender Cardiovascular: Regular rate, Regular rhythm, No murmurs. Negative for: Tachycardia Respiratory: No distress, CTA bilaterally, Chest nontender Abdomen: Soft, Nontender, Nondistended, Normal bowel sounds Back: Nontender, Normal Inspection Extremities: Nontender, No edema Skin: Normal color, No rash Neurological: Alert, Oriented x3, Cranial nerves II-XII grossly intact, Normal Strength, Normal Sensation, - - chronic BUE tremor, worse on left. no ataxia on FTN or HTS. Psychological: Normal affect, Normal Mood Diagnostic/Tx/Re-eval - Rhythm Strip Rhythm Strip: A-fib - w/ ventricular pacing Rate: 60 - EKG Initial EKG Interpretation: No Acute Injury Pattern, Atrial Fibrillation - w/ vent pace/capture - Medical Decision Making Her symptoms are consistent with peripheral vertigo, she was treated with meclizine and Zofran and does feel somewhat better, but states I am not moving around while sitting here. Her nausea is gone. Her labs, however, show significant change in her renal function since 1 to 2 months ago with a creatinine at 2.33 and associated hyperkalemia at 7.6. Her EKG shows a paced rhythm, hence a wide-complex, so difficult to tell if she has significant EKG changes from this or not. She does not necessarily have peaked T waves. I repeated this to verify it and treated her for hyperkalemia, she is stable and will be admitted to a monitored bed overnight for further treatment and evaluat ion. When I discussed this with the patient, she states her doctor had some outpatient blood work recently that showed decreased kidney function and she has a scheduled appointment for nephrology, she has never seen them before. Her last creatinine was 0.93, 1.5 mos ago. ED Disposition - Plan for ED Patient: Disposition: Acute Care [facility] Diagnosis: BRAEDEN (acute kidney injury), Hyperkalemia, Peripheral vertigo, unspecified Referrals: Ranjan Hyatt Chi, MD [Primary Care Provider] -
[2019-01-18] MEDS: Ondansetron 4 MG/2 ML Vial IV (19:28)
[2019-01-18] MEDS: Meclizine HCl 25 MG Tablet PO (19:28)
[2019-01-18 19:47] LABS: Absolute Lymphocyte Count 0.86 X10^3/ul (0.83-4.51); Absolute Neutrophil Count 8.7 X10^3/uL (2.0-7.7); Basophil# 0.01 X10^3/uL; Basophil% 0.1 % (0-1); Eosinophil# 0.07 X10^3/uL; Eosinophils% 0.7 % (0-5); Hematocrit 40.4 % (37-47); Hemoglobin 13.5 g/dl (12.0-15.0); Lymphocyte # 0.86 X10^3/ul (4.0); Lymphocyte % 8.2 % (19-41); Mean Corp Hgb Conc 33.4 g/gl (32-36); Mean Corpuscular Hgb 30.5 pg (27.0-32.0); Mean Corpuscular Volume 91.4 fL (81-99); Monocyte# 0.84 X10^3/uL; Neutrophil # 8.72 X10^3/uL (2.7-7.7); Neutrophil % 82.8 % (47-70); POSITIVE COUNT NO; POSITIVE DIFFERENTIAL NO; POSITIVE MORPHOLOGY NO; Platelet Count 202 K/mm3 (150-450); RBC Distribution Width CV 15.7 % (11.6-14.6); RBC Distribution Width SD 52.7 fl (35.1-43.9); Red Blood Count 4.42 M/mm3 (4.2-5.4); White Blood Count 10.5 K/mm3 (4.4-11.0)
[2019-01-18 20:02] LABS: Anion Gap 5 (5-15); BUN 56 mg/dL (7-18); Calcium,Total 8.8 mg/dL (8.5-10.1); Chloride 98 mmol/L (98-107); Creatinine, Serum 2.33 mg/dL (0.55-1.02); EST Glomerular Filtration Rate 22 mL/min (>60); Est Glom Filt Rate - Afr Amer 26 mL/min (>60); Estimated Creatinine Clearance 15.22 ml/min; Glucose 273 mg/dL (74-106); Potassium 7.6 mmol/L (3.5-5.1); Sodium Level 132 mmol/L (136-145)
--- NOTE | 2019-01-18 20:35 | EKG12_ITS ---
Test Reason : Blood Pressure : / mmHG Vent. Rate : 185 BPM Atrial Rate : 034 BPM P-R Int : 000 ms QRS Dur : 142 ms QT Int : 138 ms P-R-T Axes : 000 103 000 degrees QTc Int : 242 ms Atrial fibrillation with rapid ventricular response with frequent ventricular-paced complexes and wit h premature ventricular or aberrantly conducted complexes Non-specific intra-ventricular conduction block Cannot rule out Septal infarct , age undetermined Lateral infarct , age undetermined Abnormal ECG Confirmed by TAMMI SALGADO, CAIO ([id number]), online editor ROSITA PATRICIA ([id number]) on 01/19/2019 3:50:56 PM Referred By: BB Confirmed By:CAIO CADENA MD
[2019-01-18] MEDS: Albuterol 2.5 MG/3 ML VIAL.NEB. INHALATION (21:05)
--- NOTE | 2019-01-18 21:26 | HP.PCM_ITS ---
Problem List (1) BRAEDEN (acute kidney injury) Status: Acute (2) Hyperkalemia Status: Acute (3) Peripheral vertigo, unspecified Status: Acute (4) Essential (primary) hypertension Status: Chronic (5) Ischemic cardiomyopathy Status: Chronic (6) Obesity Status: Chronic Qualifiers: Obesity type: unspecified obesity type Obesity classification: adult class 2 (BMI 35 - 39.9) Serious obesity comorbidity presence: with serious comorbidity Body mass index: BMI 35.0-35.9 Qualified Code(s): E66.01 - Morbid (severe) obesity due to excess calories; Z68.35 - Body mass index (BMI) 35.0-35.9, adult (7) Anti-phospholipid syndrome Status: Chronic History of Present Illness Date of Admission: 01/18/19 Chief Complaint: dizziness The patient is a 73 year old F with a significant history of A. fib; permanent pacemaker; type 2 diabetes; hypertension; hyperlipidemia; congestive heart failure; CAD status post CABG who presented to the emergency department with dizziness that started on the same day of presentation. She describes her dizziness as lightheadedness and vertigo. She reports a history of chronic vertigo. Associated with symptoms is nausea and vomiting. At emergency department patient was given meclizine and zofran which helped with her symptoms. Patient reports chronic history of bilateral temporal headache and chronic tinnitus. At the emergency department patient was found to have severely elevated potassium level for which she received calcium gluconate; insulin with dextrose; albuterol and Kayexalate. Of note patient was noted to have outpatient kidney injury for which she has an appointment scheduled with an reconciliation coordinator in a week's time. Past Medical History Past Medical History (Chronic Problems): Chronic Problems (Last Reviewed 07/18/18 @ 15:36 by Marco Antonio Sherwood MD) Nonrheumatic aortic (valve) stenosis with insufficiency (Chronic) CAD (coronary artery disease) (Chronic) Secondary pulmonary arterial hypertension (Chronic) Essential (primary) hypertension (Chronic) Automatic implantable cardiac defibrillator in situ (Chronic 12/21/13) Acute kidney failure (Chronic) Atherosclerosis of coronary artery bypass graft without angina pectoris (Chronic) CABG: RIVERA-Distal LAD, SVG-Prox LAD, SVG-OM1, SVG-Left PDA 12/2001; Ischemic cardiomyopathy (Chronic) Chronic systolic congestive heart failure (Chronic) Dyspnea on exertion (Chronic) HLD (hyperlipidemia) (Chronic) Myocardial infarction (Chronic) H/O coronary artery bypass surgery (Chronic 12/02/01) CABG: RIVERA-Distal LAD, SVG-Prox LAD, SVG-OM1, SVG-Left PDA 12/2001; Hypercoagulable state, primary (Chronic) RBBB (right bundle branch block) (Chronic) NSTEMI (non-ST elevated myocardial infarction) (Chronic) Obesity (Chronic) Anti-phospholipid syndrome (Chronic) Medical History: Medical History (Last Reviewed 01/18/19 @ 23:28 by Kasi Mensah MD) Secondary pulmonary arterial hypertension (Chronic) I27.21 Essential (primary) hypertension (Chronic) I10 Acute kidney failure (Chronic) N17.9 Atherosclerosis of coronary artery bypass graft without angina pectoris (Chronic) I25.810 CABG: RIVERA-Distal LAD, SVG-Prox LAD, SVG-OM1, SVG-Left PDA 12/2001; Ischemic cardiomyopathy (Chronic) I25.5 Chronic systolic congestive heart failure (Chronic) I50.22 Dyspnea on exertion (Chronic) R06.09 HLD (hyperlipidemia) (Chronic) E78.5 Myocardial infarction (Chronic) I21.9 Hypercoagulable state, primary (Chronic) D68.59 RBBB (right bundle branch block) (Chronic) I45.10 NSTEMI (non-ST elevated myocardial infarction) (Chronic) I21.4 Obesity (Chronic) E66.9 Anti-phospholipid syndrome (Chronic) D68.61 Compression fracture of lumbar vertebra S32.000A GERD (gastroesophageal reflux disease) K21.9 Type 2 diabetes mellitus E11.9 Chest pain, precordial (Resolved) R07.2 Sepsis A41.9 Syncope R55 Allergies latex Allergy (Severe, Verified 01/18/19 18:50) Swelling Home Medications: Ambulatory Orders Medication Instructions Recorded Ergocalciferol [Vitamin D] 50,000 unit PO QMONTH 05/09/16 Insulin Glargine,Hum.rec.anlog 50 unit SQ DAILY 05/09/16 [Lantus] Allopurinol [Zyloprim] 100 mg PO DAILY 08/29/17 nitroglycerin 0.4 mg sublingual 0.4 mg SUBLINGUAL Q5M PRN 09/20/17 tablet aspirin 81 mg tablet,delayed 81 mg PO QHS 10/02/17 release gabapentin 600 mg tablet 600 mg PO QDAY 04/01/18 Warfarin [Coumadin] 4 mg PO DAILY 04/26/18 Metformin HCl 500 mg PO DAILY #0 04/27/18 Colchicine [Colcrys] 0.6 mg PO DAILY PRN 09/02/18 Isosorbide Mononitrate [Isosorbide 60 mg PO DAILY 09/02/18 Mononitrate ER] Paroxetine HCl [Paxil] 20 mg PO QHS 09/02/18 Ranitidine [Zantac] 150 mg PO DAILY 09/02/18 Simvastatin [Zocor] 20 mg PO QHS 09/02/18 Ranolazine [Ranexa] 500 mg PO BID #60 tab 09/04/18 metoprolol tartrate 25 mg tablet 25 mg PO BID #180 tab 09/22/18 potassium chloride ER 20 mEq 20 meq PO BID tab 10/24/18 tablet,extended release furosemide 80 mg tablet 80 mg PO BID tab 11/21/18 sacubitril 97 mg-valsartan 103 mg 1 tab PO BID #180 tab 11/21/18 tablet Surgical History: Surgical History (Last Reviewed 01/18/19 @ 23:28 by Kasi Mensah MD) Automatic implantable cardiac defibrillator in situ (Chronic) Onset Date: 12/21/13 Z95.810 H/O coronary artery bypass surgery (Chronic) Onset Date: 12/02/01 Z95.1 CABG: RIVERA-Distal LAD, SVG-Prox LAD, SVG-OM1, SVG-Left PDA 12/2001; History of appendectomy Z90.49 History of cholecystectomy Z90.49 History of hysterectomy Z90.710 History of left heart catheterization (LHC) Onset Date: 12/18/13 Z98.890 LHC: 12/2002; 09/2007; 10/2008; 12/19/2013 Surgical History: appendectomy, cholecystectomy, coronary bypass surgery, hysterectomy, pacemaker implantation Lives: Spouse/ Significant Other Smoking Status: Never smoker Alcohol: None - *Family History Maternal Family History: Family History (Last Reviewed 01/18/19 @ 23:21 by Kasi Mensah MD) Mother CAD (coronary artery disease) Myocardial infarction, Onset Age: 62 Brother Myocardial infarction CAD (coronary artery disease) Sister Bone cancer Sister CAD (coronary artery disease) Myocardial infarction Hypertension History Items: Heart Disease Paternal Family History: Family History (Last Reviewed 01/18/19 @ 23:21 by Kasi Mensah MD) Mother CAD (coronary artery disease) Myocardial infarction, Onset Age: 62 Brother Myocardial infarction CAD (coronary artery disease) Sister Bone cancer Sister CAD (coronary artery disease) Myocardial infarction Hypertension History Items: Heart Disease, - - Father with anti-phospholipid syndrome Sibling Family History: Family History (Last Reviewed 01/18/19 @ 23:21 by Kasi Mensah MD) Mother CAD (coronary artery disease) Myocardial infarction, Onset Age: 62 Brother Myocardial infarction CAD (coronary artery disease) Sister Bone cancer Sister CAD (coronary artery disease) Myocardial infarction Hypertension History Items: Cancer, Heart Disease, - Review of Systems Constitutional: Denies: Chills, Fever, Weight Change HEENT: Reports: Head Aches. Denies: Sinus Congestion, Sinus Drainage Cardiovascular: Reports: Light Headedness. Denies: Chest Pain, Palpitations Respiratory: Denies: Cough, Shortness of breath at rest, Sputum production Gastrointestinal: Reports: Nausea, Vomiting. Denies: Abdominal Pain Genitourinary: Denies: Dysuria Musculoskeletal: Reports: Back Pain. Denies: Joint Pain, Joint Tenderness Skin: Denies: Rash, Wounds Neurological: Denies: Numbness, Tingling, Focal weakness Psychiatric: Denies: Anxiety, Depression, Homicidal Ideations, Suicidal Ideations Hematologic/ Lymphatic: Denies: Easy Bruising, Easy Bleeding VTE Information - Inpt Only VTE Present on Admission: No VTE Mechan Device Prophylaxis: None VTE Pharm Prophylaxis ordered?: No Reason prophylaxis not ordered:: Treatment Not Indicated - Coumadin continued for history of A. fib and antiphospholipid syndrome. Patient Problems: Active and Suspected Problems (Last Reviewed 07/18/18 @ 15:36 by Marco Antonio Sherwood MD) BRAEDEN (acute kidney injury) (Acute) Hyperkalemia (Acute) Peripheral vertigo, unspecified (Acute) - Physical Exam General: Alert, Oriented x3, Cooperative HEENT: Atraumatic, PERRLA, EOMI, Normocephalic Neck: Supple, No JVD, Negative Carotid Bruits Lungs: Clear to auscultation, Normal air movement Cardiovascular: Regular rate, No murmurs Abdomen: Bowel Sounds Present, Soft, Non Tender Extremities: No edema, Capillary Refill Less than 3 Seconds Skin: No rashes, No breakdown Musculoskeletal: No Tenderness to Palpation of Joints or Extremities Neurological: Neuro grossly intact, - - [place]-Hallpike maneuver was negative for nystagmus patient denies vertigo with it. Psych/Mental Status: Normal Affect, Appropriate Vital Signs Temp Pulse Resp BP Pulse Ox 97.8 F 60 18 114/63 93 01/18/19 18:50 01/18/19 21:05 01/18/19 21:05 01/18/19 20:28 01/18/19 20:28 Oxygen Delivery Method Room Air Weight: 82.9 kg Body Mass Index (BMI) 35.6 Finger Stick Blood Glucose 119 Laboratory Tests Past 24 Hrs 01/18/19 01/18/19 01/18/19 18:55 18:55 21:00 WBC 10.5 RBC 4.42 Hgb 13.5 Hct 40.4 MCV 91.4 MCH 30.5 MCHC 33.4 RDW 15.7 H RDW Differential 52.7 H Plt Count 202 MPV 12.0 Immature Gran % (Auto) 0.200 Neut % (Auto) 82.8 H Lymph % (Auto) 8.2 L [place] % (Auto) 8.0 Eos % (Auto) 0.7 Baso % (Auto) 0.1 Absolute Neuts (auto) 8.7 H Absolute Lymphs (auto) 0.86 Total Counted Not Reportable Sodium 132 L Potassium 7.6 H* Pending Chloride 98 Carbon Dioxide 29.0 Anion Gap 5 BUN 56 H Creatinine 2.33 H Estim Creat Clear Calc 15.22 Est GFR (MDRD) Af Amer 26 L Est GFR (MDRD) Non-Af 22 L BUN/Creatinine Ratio 24.0 H Glucose 273 H Calcium 8.8 Assessment/Plan All Active Problems (Last Reviewed 07/18/18 @ 15:36 by Marco Antonio Sherwood MD) BRAEDEN (acute kidney injury) (Acute) Hyperkalemia (Acute) Peripheral vertigo, unspecified (Acute) Chest pain (Acute) Severe sepsis (Resolved) ATN (acute tubular necrosis) (Resolved) Acute bronchitis (Resolved) Acute sinusitis (Resolved) Chest pain, precordial (Resolved) Community acquired pneumonia of right middle lobe of lung (Resolved) Ischemic cardiomyopathy (Resolved) Pneumococcal pneumonia (Resolved) Shock, unspecified (Resolved) The patient is a 73 year old F with a significant history of A. fib; permanent pacemaker; type 2 diabetes; hypertension; hyperlipidemia; congestive heart failure; CAD status post CABG who presented to the emergency department with lightheadedness and vertigo and was found to have severe hyperkalemia and elevated creatinine in the setting of recent kidney injury for which she has been scheduled for an outpatient appointment with a reconciliation coordinator. Severe hyperkalemia Potassium presentation was 7.6 repeat was 7.3. EKG was noted discernible since patient has a pacemaker and she was paced. Received calcium gluconate; Kayexalate; albuterol 1 vial; and insulin with dextrose. We will give her MiraLAX and repeat potassium . Etiology likely from potassium supplementation and BRAEDEN. Of note patient is on home Lasix 80 mg twice daily and potassium supplementation. We will give IV fluids normal saline 100 mL's per hour for 1 L and will give one-time dose of Lasix 80 mg IV and then continue a home Lasix of 80 mg p.o. twice daily. Will admit to the intensive care unit. BRAEDEN On presentation her creatinine was 2.33 Review of old records shows that about 6 weeks ago her creatinine was 0.93. Baseline creatinine is about 0.90. BUN is 56 BUN/creatinine is 24 Likely prerenal from dehydration. Gentle IV hydration with normal saline. Avoid nephrotoxic's. Lasix held Entresto held. Hold metformin. Trend BMP. Patient to follow-up with outpatient appointment with reconciliation coordinator scheduled a week after presentation. Vertigo Patient with a history of vertigo. Different diagnosis include BPPV ; M?ni?re's disease or other As scheduled meclizine ordered. PRN Zofran and Reglan ordered. CAD with CABG/ischemic cardiomyopathy Aspirin continued Lasix held because of BRAEDEN. Imdur continued Ranolazine continued Entresto held because of BRAEDEN. Zocor continued. Metoprolol continued Chronic headache Tylenol as needed ordered. Hypertension On presentation her blood pressure was within goal With metoprolol continued Entresto held because of BRAEDEN Lasix held because of BRAEDEN Imdur continued Trend blood pressure and adjust blood pressure medication. Diabetes mellitus On presentation her blood glucose was not within goal. Of note patient received insulin because of hyperkalemia and was also given concomitant dextrose at that time. We will hold home metformin. Continue home Lantus. Accu-Chek QA CHS and 3 AM with correction scale ordered. A. fib and antiphospholipid syndrome Coumadin continue INR ordered. Depression Paroxetine ordered. Chronic back pain Home Neurontin adjusted for kidney function. Gout Allopurinol continued PRN colchicine held since she is note in exacerbation. DVT prophylaxis Not indicated since patient is on home Coumadin for A. fib. Coumadin continued. Check INR. . Code Visit Inpatient E&M: 25693 Init Hosp L3
[2019-01-18 21:37] LABS: Potassium 7.3 mmol/L (3.5-5.1)
--- NOTE | 2019-01-18 21:37 | ED.RN ---
LAB CALLED AND REPORTED POTASSIUM IS 7.3. DR. MATIAS AWARE.
[2019-01-18] MEDS: Calcium Gluconate 1 GM/10 ML Vial IV (21:38)
[2019-01-18] MEDS: Dextrose 50%-Water 25 GM/50 ML DISP.SYRIN IV (21:46)
[2019-01-18] MEDS: Sodium Polystyrene Sulfonate 15 GM/60 ML UDC 30 GM PO (22:04)
--- NOTE | 2019-01-18 22:24 | ED.RN ---
REPORT GIVEN TO MIRTHA IN ICU.
[2019-01-19] VITALS (24 sets, daily range): BP systolic 90–117; BP diastolic 43–64; PULSE 66–96; RESP 16–27; TEMP 36.2–36.8; O2SAT 94–100
[2019-01-19] MEDS: 0.9% Normal Saline 1,000 ML 100 ML IV (00:11)
[2019-01-19 00:47] LABS: Prothrombin Time (Protime)PT. 22.4 SECONDS (11.7-14.9)
[2019-01-19] MEDS: Polyethylene Glycol 3350 17 GM PACKET PO (01:14)
[2019-01-19 02:16] LABS: Bedside Glucose 242 mg/dL (70-110)
[2019-01-19] MEDS: Insulin Lispro 100 UNIT/ML INSULN.PEN SQ ×3 (02:19→21:54)
[2019-01-19 02:47] LABS: Potassium 5.4 mmol/L (3.5-5.1)
--- NOTE | 2019-01-19 06:23 | NURSING ---
unable to complete med rec at this time; pt is not sure what she takes nor dosages
[2019-01-19 07:50] LABS: International Normalized Ratio 2.1; Prothrombin Time (Protime)PT. 23.8 SECONDS (11.7-14.9)
[2019-01-19 07:51] LABS: Anion Gap 4 (5-15); BUN 49 mg/dL (7-18); BUN/Creat Ratio 29.3 RATIO (10-20); Calcium,Total 8.5 mg/dL (8.5-10.1); Chloride 106 mmol/L (98-107); Creatinine, Serum 1.67 mg/dL (0.55-1.02); EST Glomerular Filtration Rate 32 mL/min (>60); Est Glom Filt Rate - Afr Amer 39 mL/min (>60); Estimated Creatinine Clearance 21.23 ml/min; Glucose 116 mg/dL (74-106); Potassium 4.8 mmol/L (3.5-5.1); Sodium Level 141 mmol/L (136-145)
--- NOTE | 2019-01-19 07:55 | PCM.PN.HOSP ---
Patient Problems: Active and Suspected Problems (Last Reviewed 01/18/19 @ 23:28 by Kasi Mensah MD) BRAEDEN (acute kidney injury) (Acute) Hyperkalemia (Acute) Peripheral vertigo, unspecified (Acute) Subjective: Patient is a 73-year-old lady with multiple comorbidities admitted with lightheadedness. Patient was found to have acute kidney injury with severe hyperkalemia. Treatment initiated in the ED and patient admitted to a monitored bed for subsequent management Objective: GENERAL: cooperative HEENT: Atraumatic; moist oral mucosa EYES; Anicteric, Normal Conjunctiva NECK; supple, normal thyroid, RESPIRATORY: Diminished to auscultation bilaterally, CARDIOVASCULAR: Regular S1 S2, GI: soft, non-tender, normoactive bowel sounds, : No Renal angle tenderness; EXTREMITIES: No edema, no clubbing, no cyanosis. MUSCULOSKELETAL: No Joint Tenderness; NEURO: Awake; no lateralizing signs. SKIN: No Rash PSYCH; flat affect Vitals/I&O's: Vital Signs Temp Pulse Resp BP Pulse Ox 97.8 F 70 27 H 92/49 L 99 01/19/19 00:00 01/19/19 06:18 01/19/19 06:18 01/19/19 06:18 01/19/19 06:18 Oxygen Flow Rate (L/min) 2 Oxygen Delivery Method Room Air Weight: 81 kg Body Mass Index (BMI) 34.6 Finger Stick Blood Glucose 119 Intake and Output for Last 24 Hours 01/17/19 01/18/19 01/19/19 23:59 23:59 23:59 Intake Total 600 / 600 Output Total 600 / 600 Balance 0 / 0 Laboratory Results 01/18/19 18:55: WBC 10.5, RBC 4.42, Hgb 13.5, Hct 40.4, MCV 91.4, MCH 30.5, MCHC 33.4, RDW 15.7 H, RDW Differential 52.7 H, Plt Count 202, MPV 12.0, Immature Gran % (Auto) 0.200, Neut % (Auto) 82.8 H, Lymph % (Auto) 8.2 L, [place] % (Auto) 8.0, Eos % (Auto) 0.7, Baso % (Auto) 0.1, Absolute Neuts (auto) 8.7 H, Absolute Lymphs (auto) 0.86, Total Counted Not Reportable 01/18/19 18:55: Sodium 132 L, Potassium 7.6 H*, Chloride 98, Carbon Dioxide 29.0, Anion Gap 5, BUN 56 H, Creatinine 2.33 H, Estim Creat Clear Calc 15.22, Est GFR (MDRD) Af Amer 26 L, Est GFR (MDRD) Non-Af 22 L, BUN/Creatinine Ratio 24.0 H, Glucose 273 H, Calcium 8.8 01/18/19 21:00: Potassium 7.3 H* 01/19/19 00:15: PT 22.4 H, INR 2.0 01/19/19 02:00: Potassium 5.4 H 01/19/19 02:08: POC Glucose 242 H 01/19/19 07:30: Sodium 141, Potassium 4.8, Chloride 106, Carbon Dioxide 31.0, Anion Gap 4 L, BUN 49 H, Creatinine 1.67 H, Estim Creat Clear Calc 21.23, Est GFR (MDRD) Af Amer 39 L, Est GFR (MDRD) Non-Af 32 L, BUN/Creatinine Ratio 29.3 H, Glucose 116 H, Calcium 8.5 01/19/19 07:30: PT 23.8 H, INR 2.1 Current Medications Acetaminophen (Tylenol) 650 mg PO Q6H PRN PRN PRN Reason: Mild Pain (1-3)/Temp > 100.7 F Allopurinol (Zyloprim) 100 mg PO DAILYCM [facility] Aspirin (Ecotrin) 81 mg PO QHS [facility] Atorvastatin Calcium (Lipitor) 10 mg PO QHS [facility] Dextrose (D50w Syringe) 0 gm IV X1 PRN; Protocol PRN Reason: Hypoglycemia Famotidine (Pepcid) 20 mg PO DAILY [facility] Gabapentin (Neurontin) 100 mg PO BID [facility] Glucagon () 1 mg IM .X1 PRN PRN Reason: Hypoglycemia Sodium Chloride () 1,000 mls @ 100 mls/hr IV .Q10H [facility] Stop: 01/19/19 08:14 Last Admin: 01/19/19 00:11 Dose: 100 mls/hr Sodium Chloride () 250 mls @ 15 mls/hr IV .[id number] PRN PRN Reason: SALINE FLUSH Insulin Glargine (Lantus (Bkc)) 50 units SC DAILY [facility] Insulin Human Lispro (Humalog Kwikpen (Bkc)) 0 unit SQ ACHS & 3AM [facility]; Protocol Last Admin: 01/19/19 02:19 Dose: 4 units Isosorbide Mononitrate (Imdur) 60 mg PO DAILY [facility] Meclizine HCl (Antivert) 12.5 mg PO TID PRN PRN Melatonin (Melatonin) 3 mg PO QHS PRN PRN PRN Reason: INSOMNIA Metoclopramide HCl (Reglan) 5 mg IV Q8H PRN PRN PRN Reason: NAUSEA/VOMITING Metoprolol Tartrate (Lopressor (Beta Michael)) 25 mg PO BID [facility] Ondansetron HCl (Zofran) 4 mg IV Q8H PRN PRN PRN Reason: NAUSEA/VOMITING Paroxetine HCl (Paxil) 20 mg PO QHS [facility] Ranolazine (Ranexa) 500 mg PO BID [facility] Sodium Chloride () 5 - 15 ml IV UD PRN PRN Reason: SALINE FLUSH Warfarin Sodium (Coumadin (Pbkc)) 4 mg PO DAILY@1700 [facility] Last Admin: 01/19/19 01:17 Dose: 4 mg Medical Necessity - Tobacco Use Smoking Status: Never smoker Assessment/Plan All Active Problems (Last Reviewed 01/18/19 @ 23:28 by Kasi Mensah MD) BRAEDEN (acute kidney injury) (Acute) Hyperkalemia (Acute) Peripheral vertigo, unspecified (Acute) Chest pain (Acute) Severe sepsis (Resolved) ATN (acute tubular necrosis) (Resolved) Acute bronchitis (Resolved) Acute sinusitis (Resolved) Chest pain, precordial (Resolved) Community acquired pneumonia of right middle lobe of lung (Resolved) Ischemic cardiomyopathy (Resolved) Pneumococcal pneumonia (Resolved) Shock, unspecified (Resolved) Patient is a 73-year-old lady with multiple comorbidities admitted with lightheadedness. Patient also reported having experienced diarrhea for prolonged period of time. Patient was found to have acute kidney injury with severe hyperkalemia. Treatment initiated in the ED and patient admitted to a monitored bed for subsequent management 1. Acute kidney injury secondary to severe dehydration from patient's diarrhea. Patient admitted to the intensive care unit because of the associated hyperkalemia managed with fluids 2. Hyperkalemia treatment initiated in the emergency department monitored in the ICU potassium down to 4.8 from an admission level of 7.6 3. Diabetes mellitus type II uncontrolled with complications including diabetic neuropathy. Patient is on long acting as well as Accu-Cheks before meals and at bedtime and covered with sliding scale insulin 4. Ischemic cardiomyopathy with an ejection fraction of 40% status post AICD placement at [facility] on 12/2013 5. Hypertension-blood pressure on admission monitoring 6. Dyslipidemia-patient is on statin therapy, continued at home dose 7. CAD with previous [place] status post CABG on recommended medications 8. Antiphospholipid syndrome patient is on Coumadin 9. Paroxysmal atrial fibrillation rate controlled patient is on Coumadin 10. Depression patient is on SSRI 11. Gout patient is on allopurinol 12. Diabetic peripheral neuropathy patient is on Neurontin. 13. Chronic heart failure with reduced ejection fraction EF on echo obtained on 12/19 was 25% 14. DVT prophylaxis patient is on warfarin Active Medications Acetaminophen (Tylenol) 650 mg PO Q6H PRN PRN PRN Reason: Mild Pain (1-3)/Temp > 100.7 F [facility] Aspirin (Ecotrin) 81 mg PO QHS [facility] Atorvastatin Calcium (Lipitor) 10 mg PO QHS [facility] Dextrose (D50w Syringe) 0 gm IV X1 PRN; Protocol PRN Reason: Hypoglycemia Famotidine (Pepcid) 20 mg PO DAILY [facility] Gabapentin (Neurontin) 100 mg PO BID [facility] Glucagon () 1 mg IM .X1 PRN PRN Reason: Hypoglycemia Sodium Chloride () 1,000 mls @ 100 mls/hr IV .Q10H [facility] Stop: 01/19/19 08:14 Last Admin: 01/19/19 00:11 Dose: 100 mls/hr Sodium Chloride () 250 mls @ 15 mls/hr IV .[id number] PRN PRN Reason: SALINE FLUSH Insulin Glargine (Lantus (Bkc)) 50 units SC DAILY [facility] Insulin Human Lispro (Humalog Kwikpen (Bk)) 0 unit SQ ACHS & 3AM [facility]; Protocol Last Admin: 01/19/19 02:19 Dose: 4 units Isosorbide Mononitrate (Imdur) 60 mg PO DAILY [facility] Meclizine HCl (Antivert) 12.5 mg PO TID PRN PRN Melatonin (Melatonin) 3 mg PO QHS PRN PRN PRN Reason: INSOMNIA Metoclopramide HCl (Reglan) 5 mg IV Q8H PRN PRN PRN Reason: NAUSEA/VOMITING Metoprolol Tartrate (Lopressor (Beta Michael)) 25 mg PO BID [facility] Ondansetron HCl (Zofran) 4 mg IV Q8H PRN PRN PRN Reason: NAUSEA/VOMITING Paroxetine HCl (Paxil) 20 mg PO QHS [facility] Ranolazine (Ranexa) 500 mg PO BID [facility] Sodium Chloride () 5 - 15 ml IV UD PRN PRN Reason: SALINE FLUSH Warfarin Sodium (Coumadin (Pbkc)) 4 mg PO DAILY@1700 [facility] Last Admin: 01/19/19 01:17 Dose: 4 mg Code Visit Inpatient E&M: 81563 Subs Hosp L3
--- NOTE | 2019-01-19 07:58 | PN_ITS ---
Patient Problems: Active and Suspected Problems (Last Reviewed 01/18/19 @ 23:28 by Kasi Mensah MD) BRAEDEN (acute kidney injury) (Acute) Hyperkalemia (Acute) Peripheral vertigo, unspecified (Acute) Subjective: Patient is a 73-year-old lady with multiple comorbidities admitted with lightheadedness. Patient was found to have acute kidney injury with severe hyperkalemia. Treatment initiated in the ED and patient admitted to a monitored bed for subsequent management Objective: GENERAL: cooperative HEENT: Atraumatic; moist oral mucosa EYES; Anicteric, Normal Conjunctiva NECK; supple, normal thyroid, RESPIRATORY: Diminished to auscultation bilaterally, CARDIOVASCULAR: Regular S1 S2, GI: soft, non-tender, normoactive bowel sounds, : No Renal angle tenderness; EXTREMITIES: No edema, no clubbing, no cyanosis. MUSCULOSKELETAL: No Joint Tenderness; NEURO: Awake; no lateralizing signs. SKIN: No Rash PSYCH; flat affect Vitals/I&O's: Vital Signs Temp Pulse Resp BP Pulse Ox 97.8 F 70 27 H 92/49 L 99 01/19/19 00:00 01/19/19 06:18 01/19/19 06:18 01/19/19 06:18 01/19/19 06:18 Oxygen Flow Rate (L/min) 2 Oxygen Delivery Method Room Air Weight: 81 kg Body Mass Index (BMI) 34.6 Finger Stick Blood Glucose 119 Intake and Output for Last 24 Hours 01/17/19 01/18/19 01/19/19 23:59 23:59 23:59 Intake Total 600 / 600 Output Total 600 / 600 Balance 0 / 0 Laboratory Results 01/18/19 18:55: WBC 10.5, RBC 4.42, Hgb 13.5, Hct 40.4, MCV 91.4, MCH 30.5, MCHC 33.4, RDW 15.7 H, RDW Differential 52.7 H, Plt Count 202, MPV 12.0, Immature Gran % (Auto) 0.200, Neut % (Auto) 82.8 H, Lymph % (Auto) 8.2 L, [place] % (Auto) 8.0, Eos % (Auto) 0.7, Baso % (Auto) 0.1, Absolute Neuts (auto) 8.7 H, Absolute Lymphs (auto) 0.86, Total Counted Not Reportable 01/18/19 18:55: Sodium 132 L, Potassium 7.6 H*, Chloride 98, Carbon Dioxide 29.0, Anion Gap 5, BUN 56 H, Creatinine 2.33 H, Estim Creat Clear Calc 15.22, Est GFR (MDRD) Af Amer 26 L, Est GFR (MDRD) Non-Af 22 L, BUN/Creatinine Ratio 24.0 H, Glucose 273 H, Calcium 8.8 01/18/19 21:00: Potassium 7.3 H* 01/19/19 00:15: PT 22.4 H, INR 2.0 01/19/19 02:00: Potassium 5.4 H 01/19/19 02:08: POC Glucose 242 H 01/19/19 07:30: Sodium 141, Potassium 4.8, Chloride 106, Carbon Dioxide 31.0, Anion Gap 4 L, BUN 49 H, Creatinine 1.67 H, Estim Creat Clear Calc 21.23, Est GFR (MDRD) Af Amer 39 L, Est GFR (MDRD) Non-Af 32 L, BUN/Creatinine Ratio 29.3 H , Glucose 116 H, Calcium 8.5 01/19/19 07:30: PT 23.8 H, INR 2.1 Current Medications Acetaminophen (Tylenol) 650 mg PO Q6H PRN PRN PRN Reason: Mild Pain (1-3)/Temp > 100.7 F Allopurinol (Zyloprim) 100 mg PO DAILYCM [facility] Aspirin (Ecotrin) 81 mg PO QHS [facility] Atorvastatin Calcium (Lipitor) 10 mg PO QHS [facility] Dextrose (D50w Syringe) 0 gm IV X1 PRN; Protocol PRN Reason: Hypoglycemia Famotidine (Pepcid) 20 mg PO DAILY [facility] Gabapentin (Neurontin) 100 mg PO BID [facility] Glucagon () 1 mg IM .X1 PRN PRN Reason: Hypoglycemia Sodium Chloride () 1,000 mls @ 100 mls/hr IV .Q10H [facility] Stop: 01/19/19 08:14 Last Admin: 01/19/19 00:11 Dose: 100 mls/hr Sodium Chloride () 250 mls @ 15 mls/hr IV .[id number] PRN PRN Reason: SALINE FLUSH Insulin Glargine (Lantus (Bkc)) 50 units SC DAILY [facility] Insulin Human Lispro (Humalog Kwikpen (Bkc)) 0 unit SQ ACHS & 3AM [facility]; Protocol Last Admin: 01/19/19 02:19 Dose: 4 units Isosorbide Mononitrate (Imdur) 60 mg PO DAILY [facility] Meclizine HCl (Antivert) 12.5 mg PO TID PRN PRN Melatonin (Melatonin) 3 mg PO QHS PRN PRN PRN Reason: INSOMNIA Metoclopramide HCl (Reglan) 5 mg IV Q8H PRN PRN PRN Reason: NAUSEA/VOMITING Metoprolol Tartrate (Lopressor (Beta Michael)) 25 mg PO BID [facility] Ondansetron HCl (Zofran) 4 mg IV Q8H PRN PRN PRN Reason: NAUSEA/VOMITING Paroxetine HCl (Paxil) 20 mg PO QHS [facility] Ranolazine (Ranexa) 500 mg PO BID [facility] Sodium Chloride () 5 - 15 ml IV UD PRN PRN Reason: SALINE FLUSH Warfarin Sodium (Coumadin (Pbkc)) 4 mg PO DAILY@1700 [facility] Last Admin: 01/19/19 01:17 Dose: 4 mg Medical Necessity - Tobacco Use Smoking Status: Never smoker Assessment/Plan All Active Problems (Last Reviewed 01/18/19 @ 23:28 by Kasi Mensah MD) BRAEDEN (acute kidney injury) (Acute) Hyperkalemia (Acute) Peripheral vertigo, unspecified (Acute) Chest pain (Acute) Severe sepsis (Resolved) ATN (acute tubular necrosis) (Resolved) Acute bronchitis (Resolved) Acute sinusitis (Resolved) Chest pain, precordial (Resolved) Community acquired pneumonia of right middle lobe of lung (Resolved) Ischemic cardiomyopathy (Resolved) Pneumococcal pneumonia (Resolved) Shock, unspecified (Resolved) Patient is a 73-year-old lady with multiple comorbidities admitted with lightheadedness. Patient also reported having experienced diarrhea for prolonged period of time. Patient was found to have acute kidney injury with severe hyperkalemia. Treatment initiated in the ED and patient admitted to a monitored bed for subsequent management 1. Acute kidney injury secondary to severe dehydration from patient's diarrhea. Patient admitted to the intensive care unit because of the associated hyperkalemia managed with fluids 2. Hyperkalemia treatment initiated in the emergency department monitored in the ICU potassium down to 4.8 from an admission level of 7.6 3. Diabetes mellitus type II uncontrolled with complications including diabetic neuropathy. Patient is on long acting as well as Accu-Cheks before meals and at bedtime and covered with sliding scale insulin 4. Ischemic cardiomyopathy with an ejection fraction of 40% status post AICD placement at [facility] on 12/2013 5. Hypertension-blood pressure on admission monitoring 6. Dyslipidemia-patient is on statin therapy, continued at home dose 7. CAD with previous [place] status post CABG on recommended medications 8. Antiphospholipid syndrome patient is on Coumadin 9. Paroxysmal atrial fibrillation rate controlled patient is on Coumadin 10. Depression patient is on SSRI 11. Gout patient is on allopurinol 12. Diabetic peripheral neuropathy patient is on Neurontin. 13. Chronic heart failure with reduced ejection fraction EF on echo obtained on 12/19 was 25% 14. DVT prophylaxis patient is on warfarin Active Medications Acetaminophen (Tylenol) 650 mg PO Q6H PRN PRN PRN Reason: Mild Pain (1-3)/Temp > 100.7 F [facility] Aspirin (Ecotrin) 81 mg PO QHS [facility] Atorvastatin Calcium (Lipitor) 10 mg PO QHS [facility] Dextrose (D50w Syringe) 0 gm IV X1 PRN; Protocol PRN Reason: Hypoglycemia Famotidine (Pepcid) 20 mg PO DAILY [facility] Gabapentin (Neurontin) 100 mg PO BID [facility] Glucagon () 1 mg IM .X1 PRN PRN Reason: Hypoglycemia Sodium Chloride () 1,000 mls @ 100 mls/hr IV .Q10H [facility] Stop: 01/19/19 08:14 Last Admin: 01/19/19 00:11 Dose: 100 mls/hr Sodium Chloride () 250 mls @ 15 mls/hr IV .[id number] PRN PRN Reason: SALINE FLUSH Insulin Glargine (Lantus (Bkc)) 50 units SC DAILY [facility] Insulin Human Lispro (Humalog Kwikpen (Bk)) 0 unit SQ ACHS & 3AM [facility]; Protocol Last Admin: 01/19/19 02:19 Dose: 4 units Isosorbide Mononitrate (Imdur) 60 mg PO DAILY [facility] Meclizine HCl (Antivert) 12.5 mg PO TID PRN PRN Melatonin (Melatonin) 3 mg PO QHS PRN PRN PRN Reason: INSOMNIA Metoclopramide HCl (Reglan) 5 mg IV Q8H PRN PRN PRN Reason: NAUSEA/VOMITING Metoprolol Tartrate (Lopressor (Beta Michael)) 25 mg PO BID [facility] Ondansetron HCl (Zofran) 4 mg IV Q8H PRN PRN PRN Reason: NAUSEA/VOMITING Paroxetine HCl (Paxil) 20 mg PO QHS [facility] Ranolazine (Ranexa) 500 mg PO BID [facility] Sodium Chloride () 5 - 15 ml IV UD PRN PRN Reason: SALINE FLUSH Warfarin Sodium (Coumadin (Pbkc)) 4 mg PO DAILY@1700 [facility] Last Admin: 01/19/19 01:17 Dose: 4 mg Code Visit Inpatient E&M: 59930 Subs Hosp L3
[2019-01-19 09:56] LABS: Bedside Glucose 106 mg/dL (70-110)
--- NOTE | 2019-01-19 10:18 | CASEMGMT ---
Addendum entered by Momo Espino 01/19/19 10:42: JASBIR CHERRY spoke with pt and her re: diabetic supplies. Pt states she has working Blood glucose monitor, knows how to use and most supplies are covered under [facility]. states they pay $500 out of pocket for her insulins. States sometimes the [employer] assists with this, otherwise they are able to afford for now. Recommend if new medications are ordered, review prices with pt and her for costs. Stewart MARTELL CM ACM Original Note: RN CM Assessment Presentation: Severe hyperkalemia. K 7.6. Intro role of CM and purpose of RN CM assessment to patient and her . Pt is awake, alert, able to participate in assessment. Demographics, PCP and Pharmacy verified. Pt states she is fairly independent at home, but is available to assist her. PCP: Dr. Hyatt Specialists: Dr. Liseth Yee and Dr. Sherwood Preferred Pharmacy: [facility] Insurance: [facility] Prescription Benefit: No prescription coverage. states they pay out of pocket and requests less expensive medications/generic be ordered on dc if possible. Up to now they have been able to afford most medications. LNOK: , Darius Fernandez Living Arrangements: Pt lives in own home independently. assists with cleaning, shopping, cooking. Transportation: drives DME: Cane, walker, shower chair. (denies use of oxygen or cpap at home) HHC: none Patient DC goals: home with support of her DC PLAN: Home
[2019-01-19] MEDS: Gabapentin 100 MG Capsule PO ×2 (11:19→21:53)
[2019-01-19] MEDS: Allopurinol 100 MG Tablet PO (11:19)
[2019-01-19] MEDS: Ranolazine 500 MG Tablet PO ×2 (11:19→21:56)
[2019-01-19] MEDS: Famotidine 20 MG Tablet PO (11:19)
[2019-01-19 11:30] LABS: Bedside Glucose 126 mg/dL (70-110)
--- NOTE | 2019-01-19 14:48 | PCM.CONS.R ---
Consultation - Renal 01/19/19 PCP/ Referring MD: Requesting physician: Dr Mensah Primary care physician: Ranjan Hyatt MD Reason for Consultation:: BRAEDEN, hyperkalemia - History of Present Illness History of Present Illness: The patient is a 73 year old F with history of A. fib; permanent pacemaker; type 2 diabetes; hypertension; hyperlipidemia; congestive heart failure; CAD status post CABG presented to the emergency department on 01/18 with dizziness for one day. She had lightheadedness and vertigo. She has chronic vertigo. She had chest pain with profound weakness of her upper and lower extremities according to the spouse at bedside. She was not able to feed herself. Labs in ER revealed potassium elevation at 7.6 improved to 4.8 today with medical management. She is on potassium supplements at home. She is on Entresto that was discontinued on admit. Her lasix was recently increased to 80mg twice a day by PCP for weight gain with low urine output. She has chronic diarrhea 3x/week. She had some nausea, vomiting with vetigo. Creatinine was elevated at 2.33 on admit improved to 1.67. She received iv hydration and lasix was discontinued. Baseline creatinine 0.9 on 12/03/18. - Allergies Allergies: Allergies latex Allergy (Severe, Verified 01/18/19 18:50) Swelling - Current Medications Current Medications: Current Medications Acetaminophen (Tylenol) 650 mg PO Q6H PRN PRN PRN Reason: Mild Pain (1-3)/Temp > 100.7 F [facility]) [facility] Last Admin: 01/19/19 11:19 Dose: 100 mg Aspirin (Ecotrin) 81 mg PO QHS [facility] Atorvastatin Calcium (Lipitor) 10 mg PO QHS [facility] Dextrose (D50w Syringe) 0 gm IV X1 PRN; Protocol PRN Reason: Hypoglycemia Famotidine (Pepcid) 20 mg PO DAILY [facility] Last Admin: 01/19/19 11:19 Dose: 20 mg Gabapentin (Neurontin) 100 mg PO BID [facility] Last Admin: 01/19/19 11:19 Dose: 100 mg Glucagon () 1 mg IM .X1 PRN PRN Reason: Hypoglycemia Sodium Chloride () 250 mls @ 15 mls/hr IV .[id number] PRN PRN Reason: SALINE FLUSH Insulin Glargine (Lantus (Bkc)) 50 units SC DAILY [facility] Last Admin: 01/19/19 11:19 Dose: 50 units Insulin Human Lispro (Humalog Kwikpen ([facility])) 0 unit SQ ACHS & 3AM [facility]; Protocol Last Admin: 01/19/19 11:23 Dose: Not Given Isosorbide Mononitrate (Imdur) 60 mg PO DAILY [facility] Last Admin: 01/19/19 11:41 Dose: Not Given Meclizine HCl (Antivert) 12.5 mg PO TID PRN PRN Melatonin (Melatonin) 3 mg PO QHS PRN PRN PRN Reason: INSOMNIA Metoclopramide HCl (Reglan) 5 mg IV Q8H PRN PRN PRN Reason: NAUSEA/VOMITING Metoprolol Tartrate (Lopressor (Beta Michael)) 25 mg PO BID [facility] Last Admin: 01/19/19 11:41 Dose: Not Given Ondansetron HCl (Zofran) 4 mg IV Q8H PRN PRN PRN Reason: NAUSEA/VOMITING Paroxetine HCl (Paxil) 20 mg PO QHS [facility] Ranolazine (Ranexa) 500 mg PO BID [facility] Last Admin: 01/19/19 11:19 Dose: 500 mg Sodium Chloride () 5 - 15 ml IV UD PRN PRN Reason: SALINE FLUSH Warfarin Sodium (Coumadin (Pbkc)) 4 mg PO DAILY@1700 [facility] Last Admin: 01/19/19 01:17 Dose: 4 mg - Past Medical History Past Medical History (Chronic Problems): Chronic Problems (Last Reviewed 01/18/19 @ 23:28 by Kasi Mensah MD) Nonrheumatic aortic (valve) stenosis with insufficiency (Chronic) CAD (coronary artery disease) (Chronic) Secondary pulmonary arterial hypertension (Chronic) Essential (primary) hypertension (Chronic) Automatic implantable cardiac defibrillator in situ (Chronic 12/21/13) Acute kidney failure (Chronic) Atherosclerosis of coronary artery bypass graft without angina pectoris (Chronic) CABG: RIVERA-Distal LAD, SVG-Prox LAD, SVG-OM1, SVG-Left PDA 12/2001; Ischemic cardiomyopathy (Chronic) Chronic systolic congestive heart failure (Chronic) Dyspnea on exertion (Chronic) HLD (hyperlipidemia) (Chronic) Myocardial infarction (Chronic) H/O coronary artery bypass surgery (Chronic 12/02/01) CABG: RIVERA-Distal LAD, SVG-Prox LAD, SVG-OM1, SVG-Left PDA 12/2001; Hypercoagulable state, primary (Chronic) RBBB (right bundle branch block) (Chronic) NSTEMI (non-ST elevated myocardial infarction) (Chronic) Obesity (Chronic) Anti-phospholipid syndrome (Chronic) - Past Surgical History Surgical History: appendectomy, cholecystectomy, coronary bypass surgery, hysterectomy, pacemaker implantation - Social History Marital Status: Smoking Status: Never smoker Alcohol: None - Family History Maternal Family History: Family History (Last Reviewed 01/18/19 @ 23:21 by Kasi Mensah MD) Mother CAD (coronary artery disease) Myocardial infarction, Onset Age: 62 Brother Myocardial infarction CAD (coronary artery disease) Sister Bone cancer Sister CAD (coronary artery disease) Myocardial infarction Hypertension History Items: Heart Disease Paternal Family History: Family History (Last Reviewed 01/18/19 @ 23:21 by Kasi Mensah MD) Mother CAD (coronary artery disease) Myocardial infarction, Onset Age: 62 Brother Myocardial infarction CAD (coronary artery disease) Sister Bone cancer Sister CAD (coronary artery disease) Myocardial infarction Hypertension History Items: Heart Disease, - - Father with anti-phospholipid syndrome Sibling Family History: Family History (Last Reviewed 01/18/19 @ 23:21 by Kasi Mensah MD) Mother CAD (coronary artery disease) Myocardial infarction, Onset Age: 62 Brother Myocardial infarction CAD (coronary artery disease) Sister Bone cancer Sister CAD (coronary artery disease) Myocardial infarction Hypertension History Items: Cancer, Heart Disease, - Review of Systems Constitutional: Reports: Anorexia, Weakness, Fatigue. Denies: Chills, Fever HEENT: Denies: Head Aches Cardiovascular: Reports: Chest Pain, Light Headedness, - - dizziness. Denies: Edema Respiratory: Denies: Cough, Shortness of Breath Gastrointestinal: Reports: Diarrhea - chronic 3x/day, Nausea, Vomiting. Denies: Abdominal Pain Genitourinary: Reports: - - decreased urine output. Denies: Dysuria Musculoskeletal: Denies: Arm Pain, Back Pain Neurological: Reports: Balance problems, - - generalized weakness Hematologic/ Lymphatic: Denies: Anemia, Hx of blood clot Patient Problems: Active and Suspected Problems (Last Reviewed 01/18/19 @ 23:28 by Kasi Mensah MD) BRAEDEN (acute kidney injury) (Acute) Hyperkalemia (Acute) Peripheral vertigo, unspecified (Acute) - Physical Exam General: Alert, Oriented x3, Cooperative, No apparent distress, - - spouse at bedside HEENT: PERRLA, EOMI Neck: Supple Lungs: Clear to auscultation Cardiovascular: Regular rate, - - paced rhythm on tele Abdomen: Bowel Sounds Present, Soft, Non Tender, Non-Distended, Obese Extremities: No edema Skin: No rashes Musculoskeletal: - - generalized weakness, debilitated at baseline Neurological: Cranial nerves II-XII grossly intact Psych/Mental Status: Normal Affect, Appropriate, Alert and oriented to time, place, person, mood and affect Vital Signs Temp Pulse Resp BP Pulse Ox 98.0 F 78 17 91/43 L 96 01/19/19 11:07 01/19/19 11:48 01/19/19 11:07 01/19/19 11:07 01/19/19 11:07 Oxygen Flow Rate (L/min) 2 Oxygen Delivery Method Room Air Weight: 81 kg Body Mass Index (BMI) 34.6 Finger Stick Blood Glucose 119 Intake and Output for Last 24 Hours 01/17/19 01/18/19 01/19/19 23:59 23:59 23:59 Intake Total 900 / 900 Output Total 600 / 600 Balance 300 / 300 Laboratory Tests Past 24 Hrs 01/18/19 01/18/19 01/18/19 18:55 18:55 21:00 WBC 10.5 RBC 4.42 Hgb 13.5 Hct 40.4 MCV 91.4 MCH 30.5 MCHC 33.4 RDW 15.7 H RDW Differential 52.7 H Plt Count 202 MPV 12.0 Immature Gran % (Auto) 0.200 Neut % (Auto) 82.8 H Lymph % (Auto) 8.2 L [place] % (Auto) 8.0 Eos % (Auto) 0.7 Baso % (Auto) 0.1 Absolute Neuts (auto) 8.7 H Absolute Lymphs (auto) 0.86 Total Counted Not Reportable PT INR Sodium 132 L Potassium 7.6 H* 7.3 H* Chloride 98 Carbon Dioxide 29.0 Anion Gap 5 BUN 56 H Creatinine 2.33 H Estim Creat Clear Calc 15.22 Est GFR (MDRD) Af Amer 26 L Est GFR (MDRD) Non-Af 22 L BUN/Creatinine Ratio 24.0 H Glucose 273 H Calcium 8.8 01/19/19 01/19/19 01/19/19 00:15 02:00 07:30 WBC RBC Hgb Hct MCV MCH MCHC RDW RDW Differential Plt Count MPV Immature Gran % (Auto) Neut % (Auto) Lymph % (Auto) [place] % (Auto) Eos % (Auto) Baso % (Auto) Absolute Neuts (auto) Absolute Lymphs (auto) Total Counted PT 22.4 H INR 2.0 Sodium 141 Potassium 5.4 H 4.8 Chloride 106 Carbon Dioxide 31.0 Anion Gap 4 L BUN 49 H Creatinine 1.67 H Estim Creat Clear Calc 21.23 Est GFR (MDRD) Af Amer 39 L Est GFR (MDRD) Non-Af 32 L BUN/Creatinine Ratio 29.3 H Glucose 116 H Calcium 8.5 01/19/19 07:30 WBC RBC Hgb Hct MCV MCH MCHC RDW RDW Differential Plt Count MPV Immature Gran % (Auto) Neut % (Auto) Lymph % (Auto) [place] % (Auto) Eos % (Auto) Baso % (Auto) Absolute Neuts (auto) Absolute Lymphs (auto) Total Counted PT 23.8 H INR 2.1 Sodium Potassium Chloride Carbon Dioxide Anion Gap BUN Creatinine Estim Creat Clear Calc Est GFR (MDRD) Af Amer Est GFR (MDRD) Non-Af BUN/Creatinine Ratio Glucose Calcium POC Glucose 01/19/19 01/19/19 01/19/19 11:17 09:49 02:08 POC Glucose 126 H 106 242 H Assessment/Plan All Active Problems (Last Reviewed 01/18/19 @ 23:28 by Kasi Mensah MD) BRAEDEN (acute kidney injury) (Acute) Hyperkalemia (Acute) Peripheral vertigo, unspecified (Acute) Chest pain (Acute) Severe sepsis (Resolved) ATN (acute tubular necrosis) (Resolved) Acute bronchitis (Resolved) Acute sinusitis (Resolved) Chest pain, precordial (Resolved) Community acquired pneumonia of right middle lobe of lung (Resolved) Ischemic cardiomyopathy (Resolved) Pneumococcal pneumonia (Resolved) Shock, unspecified (Resolved) 1. Hyperkalemia due to BRAEDEN, K supplements resolved 2. BRAEDEN due to dehydration. Creatinine improving with iv hydration. Continue to hold diuretics 3. DM2 on insulin, primary mgmt 4. HTN BP remains low. Metoprolol on hold 5, Chest pain, weakness likely due to hyperkalemia resolved 6. Vertigo with low BP, hold on BP meds as needed
--- NOTE | 2019-01-19 14:52 | CON.PCM_ITS ---
Consultation - Renal 01/19/19 PCP/ Referring MD: Requesting physician: Dr Mensah Primary care physician: Ranjan Hyatt MD Reason for Consultation:: BRAEDEN, hyperkalemia - History of Present Illness History of Present Illness: The patient is a 73 year old F with history of A. fib; permanent pacemaker; type 2 diabetes; hypertension; hyperlipidemia; congestive heart failure; CAD status post CABG presented to the emergency department on 01/18 with dizziness for one day. She had lightheadedness and vertigo. She has chronic vertigo. She had chest pain with profound weakness of her upper and lower extremities according to the spouse at bedside. She was not able to feed herself. Labs in ER revealed potassium elevation at 7.6 improved to 4.8 today with medical management. She is on potassium supplements at home. She is on Entresto that was discontinued on admit. Her lasix was recently increased to 80mg twice a day by PCP for weight gain with low urine output. She has chronic diarrhea 3x/week. She had some nausea, vomiting with vetigo. Creatinine was elevated at 2.33 on admit improved to 1.67. She received iv hydration and lasix was discontinued. Baseline creatinine 0.9 on 12/03/18. - Allergies Allergies: Allergies latex Allergy (Severe, Verified 01/18/19 18:50) Swelling - Current Medications Current Medications: Current Medications Acetaminophen (Tylenol) 650 mg PO Q6H PRN PRN PRN Reason: Mild Pain (1-3)/Temp > 100.7 F [facility]) [facility] Last Admin: 01/19/19 11:19 Dose: 100 mg Aspirin (Ecotrin) 81 mg PO QHS [facility] Atorvastatin Calcium (Lipitor) 10 mg PO QHS [facility] Dextrose (D50w Syringe) 0 gm IV X1 PRN; Protocol PRN Reason: Hypoglycemia Famotidine (Pepcid) 20 mg PO DAILY [facility] Last Admin: 01/19/19 11:19 Dose: 20 mg Gabapentin (Neurontin) 100 mg PO BID [facility] Last Admin: 01/19/19 11:19 Dose: 100 mg Glucagon () 1 mg IM .X1 PRN PRN Reason: Hypoglycemia Sodium Chloride () 250 mls @ 15 mls/hr IV .[id number] PRN PRN Reason: SALINE FLUSH Insulin Glargine (Lantus (Bkc)) 50 units SC DAILY [facility] Last Admin: 01/19/19 11:19 Dose: 50 units Insulin Human Lispro (Humalog Kwikpen ([facility])) 0 unit SQ ACHS & 3AM [facility]; Protocol Last Admin: 01/19/19 11:23 Dose: Not Given Isosorbide Mononitrate (Imdur) 60 mg PO DAILY [facility] Last Admin: 01/19/19 11:41 Dose: Not Given Meclizine HCl (Antivert) 12.5 mg PO TID PRN PRN Melatonin (Melatonin) 3 mg PO QHS PRN PRN PRN Reason: INSOMNIA Metoclopramide HCl (Reglan) 5 mg IV Q8H PRN PRN PRN Reason: NAUSEA/VOMITING Metoprolol Tartrate (Lopressor (Beta Michael)) 25 mg PO BID [facility] Last Admin: 01/19/19 11:41 Dose: Not Given Ondansetron HCl (Zofran) 4 mg IV Q8H PRN PRN PRN Reason: NAUSEA/VOMITING Paroxetine HCl (Paxil) 20 mg PO QHS [facility] Ranolazine (Ranexa) 500 mg PO BID [facility] Last Admin: 01/19/19 11:19 Dose: 500 mg Sodium Chloride () 5 - 15 ml IV UD PRN PRN Reason: SALINE FLUSH Warfarin Sodium (Coumadin (Pbkc)) 4 mg PO DAILY@1700 [facility] Last Admin: 01/19/19 01:17 Dose: 4 mg - Past Medical History Past Medical History (Chronic Problems): Chronic Problems (Last Reviewed 01/18/19 @ 23:28 by Kasi Mensah MD) Nonrheumatic aortic (valve) stenosis with insufficiency (Chronic) CAD (coronary artery disease) (Chronic) Secondary pulmonary arterial hypertension (Chronic) Essential (primary) hypertension (Chronic) Automatic implantable cardiac defibrillator in situ (Chronic 12/21/13) Acute kidney failure (Chronic) Atherosclerosis of coronary artery bypass graft without angina pectoris (Chronic) CABG: RIVERA-Distal LAD, SVG-Prox LAD, SVG-OM1, SVG-Left PDA 12/2001; Ischemic cardiomyopathy (Chronic) Chronic systolic congestive heart failure (Chronic) Dyspnea on exertion (Chronic) HLD (hyperlipidemia) (Chronic) Myocardial infarction (Chronic) H/O coronary artery bypass surgery (Chronic 12/02/01) CABG: RIVERA-Distal LAD, SVG-Prox LAD, SVG-OM1, SVG-Left PDA 12/2001; Hypercoagulable state, primary (Chronic) RBBB (right bundle branch block) (Chronic) NSTEMI (non-ST elevated myocardial infarction) (Chronic) Obesity (Chronic) Anti-phospholipid syndrome (Chronic) - Past Surgical History Surgical History: appendectomy, cholecystectomy, coronary bypass surgery, hysterectomy, pacemaker implantation - Social History Marital Status: Smoking Status: Never smoker Alcohol: None - Family History Maternal Family History: Family History (Last Reviewed 01/18/19 @ 23:21 by Kasi Mensah MD) Mother CAD (coronary artery disease) Myocardial infarction, Onset Age: 62 Brother Myocardial infarction CAD (coronary artery disease) Sister Bone cancer Sister CAD (coronary artery disease) Myocardial infarction Hypertension History Items: Heart Disease Paternal Family History: Family History (Last Reviewed 01/18/19 @ 23:21 by Kasi Mensah MD) Mother CAD (coronary artery disease) Myocardial infarction, Onset Age: 62 Brother Myocardial infarction CAD (coronary artery disease) Sister Bone cancer Sister CAD (coronary artery disease) Myocardial infarction Hypertension History Items: Heart Disease, - - Father with anti-phospholipid syndrome Sibling Family History: Family History (Last Reviewed 01/18/19 @ 23:21 by Kasi Mensah MD) Mother CAD (coronary artery disease) Myocardial infarction, Onset Age: 62 Brother Myocardial infarction CAD (coronary artery disease) Sister Bone cancer Sister CAD (coronary artery disease) Myocardial infarction Hypertension History Items: Cancer, Heart Disease, - Review of Systems Constitutional: Reports: Anorexia, Weakness, Fatigue. Denies: Chills, Fever HEENT: Denies: Head Aches Cardiovascular: Reports: Chest Pain, Light Headedness, - - dizziness. Denies: Edema Respiratory: Denies: Cough, Shortness of Breath Gastrointestinal: Reports: Diarrhea - chronic 3x/day, Nausea, Vomiting. Denies: Abdominal Pain Genitourinary: Reports: - - decreased urine output. Denies: Dysuria Musculoskeletal: Denies: Arm Pain, Back Pain Neurological: Reports: Balance problems, - - generalized weakness Hematologic/ Lymphatic: Denies: Anemia, Hx of blood clot Patient Problems: Active and Suspected Problems (Last Reviewed 01/18/19 @ 23:28 by Kasi Mensah MD) BRAEDEN (acute kidney injury) (Acute) Hyperkalemia (Acute) Peripheral vertigo, unspecified (Acute) - Physical Exam General: Alert, Oriented x3, Cooperative, No apparent distress, - - spouse at bedside HEENT: PERRLA, EOMI Neck: Supple Lungs: Clear to auscultation Cardiovascular: Regular rate, - - paced rhythm on tele Abdomen: Bowel Sounds Present, Soft, Non Tender, Non-Distended, Obese Extremities: No edema Skin: No rashes Musculoskeletal: - - generalized weakness, debilitated at baseline Neurological: Cranial nerves II-XII grossly intact Psych/Mental Status: Normal Affect, Appropriate, Alert and oriented to time, place, person, mood and affect Vital Signs Temp Pulse Resp BP Pulse Ox 98.0 F 78 17 91/43 L 96 01/19/19 11:07 01/19/19 11:48 01/19/19 11:07 01/19/19 11:07 01/19/19 11:07 Oxygen Flow Rate (L/min) 2 Oxygen Delivery Method Room Air Weight: 81 kg Body Mass Index (BMI) 34.6 Finger Stick Blood Glucose 119 Intake and Output for Last 24 Hours 01/17/19 01/18/19 01/19/19 23:59 23:59 23:59 Intake Total 900 / 900 Output Total 600 / 600 Balance 300 / 300 Laboratory Tests Past 24 Hrs 01/18/19 01/18/19 01/18/19 18:55 18:55 21:00 WBC 10.5 RBC 4.42 Hgb 13.5 Hct 40.4 MCV 91.4 MCH 30.5 MCHC 33.4 RDW 15.7 H RDW Differential 52.7 H Plt Count 202 MPV 12.0 Immature Gran % (Auto) 0.200 Neut % (Auto) 82.8 H Lymph % (Auto) 8.2 L Cloud % (Auto) 8.0 Eos % (Auto) 0.7 Baso % (Auto) 0.1 Absolute Neuts (auto) 8.7 H Absolute Lymphs (auto) 0.86 Total Counted Not Reportable PT INR Sodium 132 L Potassium 7.6 H* 7.3 H* Chloride 98 Carbon Dioxide 29.0 Anion Gap 5 BUN 56 H Creatinine 2.33 H Estim Creat Clear Calc 15.22 Est GFR (MDRD) Af Amer 26 L Est GFR (MDRD) Non-Af 22 L BUN/Creatinine Ratio 24.0 H Glucose 273 H Calcium 8.8 01/19/19 01/19/19 01/19/19 00:15 02:00 07:30 WBC RBC Hgb Hct MCV MCH MCHC RDW RDW Differential Plt Count MPV Immature Gran % (Auto) Neut % (Auto) Lymph % (Auto) Cloud % (Auto) Eos % (Auto) Baso % (Auto) Absolute Neuts (auto) Absolute Lymphs (auto) Total Counted PT 22.4 H INR 2.0 Sodium 141 Potassium 5.4 H 4.8 Chloride 106 Carbon Dioxide 31.0 Anion Gap 4 L BUN 49 H Creatinine 1.67 H Estim Creat Clear Calc 21.23 Est GFR (MDRD) Af Amer 39 L Est GFR (MDRD) Non-Af 32 L BUN/Creatinine Ratio 29.3 H Glucose 116 H Calcium 8.5 01/19/19 07:30 WBC RBC Hgb Hct MCV MCH MCHC RDW RDW Differential Plt Count MPV Immature Gran % (Auto) Neut % (Auto) Lymph % (Auto) Cloud % (Auto) Eos % (Auto) Baso % (Auto) Absolute Neuts (auto) Absolute Lymphs (auto) Total Counted PT 23.8 H INR 2.1 Sodium Potassium Chloride Carbon Dioxide Anion Gap BUN Creatinine Estim Creat Clear Calc Est GFR (MDRD) Af Amer Est GFR (MDRD) Non-Af BUN/Creatinine Ratio Glucose Calcium POC Glucose 01/19/19 01/19/19 01/19/19 11:17 09:49 02:08 POC Glucose 126 H 106 242 H Assessment/Plan All Active Problems (Last Reviewed 01/18/19 @ 23:28 by Kasi Mensah MD) BRAEDEN (acute kidney injury) (Acute) Hyperkalemia (Acute) Peripheral vertigo, unspecified (Acute) Chest pain (Acute) Severe sepsis (Resolved) ATN (acute tubular necrosis) (Resolved) Acute bronchitis (Resolved) Acute sinusitis (Resolved) Chest pain, precordial (Resolved) Community acquired pneumonia of right middle lobe of lung (Resolved) Ischemic cardiomyopathy (Resolved) Pneumococcal pneumonia (Resolved) Shock, unspecified (Resolved) 1. Hyperkalemia due to BRAEDEN, K supplements resolved 2. BRAEDEN due to dehydration. Creatinine improving with iv hydration. Continue to hold diuretics 3. DM2 on insulin, primary mgmt 4. HTN BP remains low. Metoprolol on hold 5, Chest pain, weakness likely due to hyperkalemia resolved 6. Vertigo with low BP, hold on BP meds as needed
[2019-01-19 18:20] LABS: Bedside Glucose 220 mg/dL (70-110)
--- NOTE | 2019-01-19 18:35 | EKG12_ITS ---
Test Reason : CP Blood Pressure : / mmHG Vent. Rate : 096 BPM Atrial Rate : 098 BPM P-R Int : 000 ms QRS Dur : 182 ms QT Int : 448 ms P-R-T Axes : 103 270 086 degrees QTc Int : 565 ms Ventricular-paced rhythm Biventricular pacemaker detected Abnormal ECG Confirmed by SYDNEE SALGADO, MARCO ANTONIO ([id number]), rewrite editor LUDWIN SANTANA ([id number]) on 01/22/2019 1:35:16 PM Referred By: DR VARGAS Confirmed By:MARCO ANTONIO RANDHAWA MD
[2019-01-19] MEDS: Acetaminophen 325 MG Tablet 650 MG PO (19:54)
[2019-01-19] MEDS: MELATONIN 3 MG TABLET PO (21:53)
[2019-01-19] MEDS: Aspirin E.C. 81 MG Tablet PO (21:53)
[2019-01-19] MEDS: Atorvastatin Calcium 10 MG Tablet PO (21:53)
[2019-01-19] MEDS: Metoprolol Tartrate 25 MG Tablet PO (21:55)
[2019-01-19] MEDS: Paroxetine 20 MG Tablet PO (21:55)
[2019-01-19 22:36] LABS: Bedside Glucose 261 mg/dL (70-110)
[2019-01-20] VITALS (16 sets, daily range): BP systolic 82–112; BP diastolic 40–58; PULSE 71–82; RESP 12–18; TEMP 35.9–36.8; O2SAT 94–99
[2019-01-20] MEDS: Insulin Lispro 100 UNIT/ML INSULN.PEN SQ ×4 (03:16→21:25)
[2019-01-20 04:06] LABS: Bedside Glucose 154 mg/dL (70-110)
[2019-01-20] MEDS: 0.9% NaCl Peripheral Flush Adult/Peds IV ×4 (04:12→21:24)
[2019-01-20 06:46] LABS: Bedside Glucose 79 mg/dL (70-110)
[2019-01-20 06:51] LABS: Absolute Lymphocyte Count 1.28 X10^3/ul (0.83-4.51); Absolute Neutrophil Count 4.8 X10^3/uL (2.0-7.7); Basophil# 0.04 X10^3/uL; Basophil% 0.6 % (0-1); Eosinophil# 0.21 X10^3/uL; Hematocrit 37.3 % (37-47); Hemoglobin 12.1 g/dl (12.0-15.0); Lymphocyte # 1.28 X10^3/ul (4.0); Lymphocyte % 18.2 % (19-41); Mean Corp Hgb Conc 32.4 g/gl (32-36); Mean Corpuscular Hgb 29.9 pg (27.0-32.0); Mean Corpuscular Volume 92.1 fL (81-99); Mean Platelet Vol. 11.8 fl (6.2-12.0); Monocyte# 0.67 X10^3/uL; Monocyte% 9.5 % (0-10); Neutrophil # 4.82 X10^3/uL (2.7-7.7); Neutrophil % 68.4 % (47-70); Platelet Count 156 K/mm3 (150-450); RBC Distribution Width SD 52.7 fl (35.1-43.9); Red Blood Count 4.05 M/mm3 (4.2-5.4)
[2019-01-20 06:53] LABS: POSITIVE COUNT NO; POSITIVE DIFFERENTIAL NO; POSITIVE MORPHOLOGY NO; Prothrombin Time (Protime)PT. 22.8 SECONDS (11.7-14.9)
[2019-01-20 07:05] LABS: Anion Gap 2 (5-15); BUN 32 mg/dL (7-18); BUN/Creat Ratio 29.1 RATIO (10-20); Calcium,Total 8.2 mg/dL (8.5-10.1); Chloride 107 mmol/L (98-107); EST Glomerular Filtration Rate 52 mL/min (>60); Est Glom Filt Rate - Afr Amer 62 mL/min (>60); Estimated Creatinine Clearance 32.23 ml/min; Glucose 80 mg/dL (74-106); Magnesium 2.2 mg/dL (1.6-2.6); Potassium 4.3 mmol/L (3.5-5.1); Sodium Level 140 mmol/L (136-145)
--- NOTE | 2019-01-20 08:37 | PCM.PN.HOSP ---
Patient Problems: Active and Suspected Problems (Last Reviewed 01/18/19 @ 23:28 by Kasi Mensah MD) BRAEDEN (acute kidney injury) (Acute) Hyperkalemia (Acute) Peripheral vertigo, unspecified (Acute) Subjective: Patient is a 73-year-old lady with multiple comorbidities admitted with lightheadedness. Patient also reported having experienced diarrhea for prolonged period of time. Patient was found to have acute kidney injury with severe hyperkalemia. Treatment initiated in the ED and patient admitted to a monitored bed for subsequent management 01/20/2019: Patient was transferred from the intensive care unit to the progressive care unit. She however developed excruciating pain which she rated at 10 out of 10 EKG obtained demonstrated paced rhythm. Subsequent serial cardiac enzymes came back elevated which is still trending up. Objective: GENERAL: cooperative HEENT: Atraumatic; moist oral mucosa EYES; Anicteric, Normal Conjunctiva NECK; supple, normal thyroid, RESPIRATORY: Diminished to auscultation bilaterally, CARDIOVASCULAR: Regular S1 S2, systolic murmur GI: soft, non-tender, normoactive bowel sounds, : No Renal angle tenderness; EXTREMITIES: No edema, no clubbing, no cyanosis. MUSCULOSKELETAL: No Joint Tenderness; NEURO: Awake; no lateralizing signs. SKIN: No Rash PSYCH; flat affect Vitals/I&O's: Vital Signs Temp Pulse Resp BP Pulse Ox 97.9 F 71 18 106/54 L 94 01/20/19 05:10 01/20/19 07:22 01/20/19 05:10 01/20/19 05:10 01/20/19 07:24 Oxygen Flow Rate (L/min) 2 Oxygen Delivery Method Room Air Weight: 81.3 kg Body Mass Index (BMI) 34.6 Finger Stick Blood Glucose 119 Intake and Output for Last 24 Hours 01/18/19 01/19/19 01/20/19 23:59 23:59 23:59 Intake Total 1400 / 1400 469 / 469 Output Total 600 / 600 Balance 800 / 800 469 / 469 Laboratory Results 01/19/19 09:49: POC Glucose 106 01/19/19 11:17: POC Glucose 126 H 01/19/19 15:58: POC Glucose 220 H 01/19/19 19:35: Troponin I < 0.015 01/19/19 21:42: Troponin I 0.036 01/19/19 21:47: POC Glucose 261 H 01/20/19 00:34: Troponin I 0.112 H 01/20/19 03:06: POC Glucose 154 H 01/20/19 03:40: Troponin I 0.222 H 01/20/19 06:30: WBC 7.0, RBC 4.05 L, Hgb 12.1, Hct 37.3, MCV 92.1, MCH 29.9, MCHC 32.4, RDW 16.0 H, RDW Differential 52.7 H, Plt Count 156, MPV 11.8, Immature Gran % (Auto) 0.300, Neut % (Auto) 68.4, Lymph % (Auto) 18.2 L, Lake % (Auto) 9.5, Eos % (Auto) 3.0, Baso % (Auto) 0.6, Absolute Neuts (auto) 4.8, Absolute Lymphs (auto) 1.28, Total Counted Not Reportable 01/20/19 06:30: PT 22.8 H, INR 2.0 01/20/19 06:30: Sodium 140, Potassium 4.3, Chloride 107, Carbon Dioxide 31.0, Anion Gap 2 L, BUN 32 H, Creatinine 1.10 H, Estim Creat Clear Calc 32.23, Est GFR (MDRD) Af Amer 62, Est GFR (MDRD) Non-Af 52 L, BUN/Creatinine Ratio 29.1 H, Glucose 80, Calcium 8.2 L, Magnesium 2.2, Troponin I 0.365 H 01/20/19 06:33: POC Glucose 79 Current Medications Acetaminophen (Tylenol) 650 mg PO Q6H PRN PRN PRN Reason: Mild Pain (1-3)/Temp > 100.7 F Last Admin: 01/19/19 19:54 Dose: 650 mg [facility]) [facility] Last Admin: 01/19/19 11:19 Dose: 100 mg Aspirin (Ecotrin) 81 mg PO QHS [facility] Last Admin: 01/19/19 21:53 Dose: 81 mg Atorvastatin Calcium (Lipitor) 10 mg PO QHS [facility] Last Admin: 01/19/19 21:53 Dose: 10 mg Dextrose (D50w Syringe) 0 gm IV X1 PRN; Protocol PRN Reason: Hypoglycemia Famotidine (Pepcid) 20 mg PO DAILY [facility] Last Admin: 01/19/19 11:19 Dose: 20 mg Gabapentin (Neurontin) 100 mg PO BID [facility] Last Admin: 01/19/19 21:53 Dose: 100 mg Glucagon () 1 mg IM .X1 PRN PRN Reason: Hypoglycemia Sodium Chloride () 250 mls @ 15 mls/hr IV .[id number] PRN PRN Reason: SALINE FLUSH Insulin Glargine (Lantus (Bk)) 50 units SC DAILY [facility] Last Admin: 01/19/19 11:19 Dose: 50 units Insulin Human Lispro (Humalog Kwikpen ([facility])) 0 unit SQ ACHS & 3AM [facility]; Protocol Last Admin: 01/20/19 07:33 Dose: Not Given Isosorbide Mononitrate (Imdur) 60 mg PO DAILY [facility] Last Admin: 01/19/19 11:41 Dose: Not Given Meclizine HCl (Antivert) 12.5 mg PO TID PRN PRN Melatonin (Melatonin) 3 mg PO QHS PRN PRN PRN Reason: INSOMNIA Last Admin: 01/19/19 21:53 Dose: 3 mg Metoclopramide HCl (Reglan) 5 mg IV Q8H PRN PRN PRN Reason: NAUSEA/VOMITING Metoprolol Tartrate (Lopressor (Beta Michael)) 25 mg PO BID [facility] Last Admin: 01/19/19 21:55 Dose: 25 mg Ondansetron HCl (Zofran) 4 mg IV Q8H PRN PRN PRN Reason: NAUSEA/VOMITING Paroxetine HCl (Paxil) 20 mg PO QHS [facility] Last Admin: 01/19/19 21:55 Dose: 20 mg Ranolazine (Ranexa) 500 mg PO BID [facility] Last Admin: 01/19/19 21:56 Dose: 500 mg Sodium Chloride () 5 - 15 ml IV UD PRN PRN Reason: SALINE FLUSH Last Admin: 01/20/19 04:12 Dose: 5 ml Warfarin Sodium (Coumadin (Pbkc)) 4 mg PO DAILY@1700 [facility] Last Admin: 01/19/19 17:31 Dose: 4 mg Medical Necessity - Tobacco Use Smoking Status: Never smoker Assessment/Plan All Active Problems (Last Reviewed 01/18/19 @ 23:28 by Kasi Mensah MD) BRAEDEN (acute kidney injury) (Acute) Hyperkalemia (Acute) Peripheral vertigo, unspecified (Acute) Chest pain (Acute) Severe sepsis (Resolved) ATN (acute tubular necrosis) (Resolved) Acute bronchitis (Resolved) Acute sinusitis (Resolved) Chest pain, precordial (Resolved) Community acquired pneumonia of right middle lobe of lung (Resolved) Ischemic cardiomyopathy (Resolved) Pneumococcal pneumonia (Resolved) Shock, unspecified (Resolved) Patient is a 73-year-old lady with multiple comorbidities admitted with lightheadedness. Patient also reported having experienced diarrhea for prolonged period of time. Patient was found to have acute kidney injury with severe hyperkalemia. Treatment initiated in the ED and patient admitted to a monitored bed for subsequent management 1. Acute kidney injury secondary to severe dehydration from patient's diarrhea. Patient admitted to the intensive care unit because of the associated hyperkalemia managed with fluids. Kidney function back to baseline 2. Chest pain elevated troponin milan patient with known coronary artery disease EKG obtained the day prior demonstrated paced rhythm. Cardiac enzymes trending up. Given patient significant past cardiac history consultation was placed to cardiology 3. Hyperkalemia treatment initiated in the emergency department monitored in the ICU potassium down to 4.8 from an admission level of 7.6 4. Diabetes mellitus type II uncontrolled with complications including diabetic neuropathy. Patient is on long acting as well as Accu-Cheks before meals and at bedtime and covered with sliding scale insulin 5. Ischemic cardiomyopathy with an ejection fraction of 40% status post AICD placement at [facility] on 12/2013 6. Hypertension: Patient blood pressure on admission was low and still remains relatively low her antihypertensive medications subsequently held 7. CAD with previous MS status post CABG on recommended medications 8. Antiphospholipid syndrome patient is on Coumadin 9. Paroxysmal atrial fibrillation rate controlled patient is on Coumadin 10. Depression patient is on SSRI 11. Gout patient is on allopurinol 12. Diabetic peripheral neuropathy patient is on Neurontin. 13. Chronic heart failure with reduced ejection fraction EF on echo obtained on 12/19 was 25% 14. Dyslipidemia-patient is on statin therapy, continued at home dose 15. DVT prophylaxis patient is on warfarin Code Visit Inpatient E&M: [id number] [place] [id number]
--- NOTE | 2019-01-20 08:42 | PN_ITS ---
Patient Problems: Active and Suspected Problems (Last Reviewed 01/18/19 @ 23:28 by Kasi Mensah MD) BRAEDEN (acute kidney injury) (Acute) Hyperkalemia (Acute) Peripheral vertigo, unspecified (Acute) Subjective: Patient is a 73-year-old lady with multiple comorbidities admitted with lightheadedness. Patient also reported having experienced diarrhea for prolonged period of time. Patient was found to have acute kidney injury with severe hyperkalemia. Treatment initiated in the ED and patient admitted to a monitored bed for subsequent management 01/20/2019: Patient was transferred from the intensive care unit to the progressive care unit. She however developed excruciating pain which she rated at 10 out of 10 EKG obtained demonstrated paced rhythm. Subsequent serial cardiac enzymes came back elevated which is still trending up. Objective: GENERAL: cooperative HEENT: Atraumatic; moist oral mucosa EYES; Anicteric, Normal Conjunctiva NECK; supple, normal thyroid, RESPIRATORY: Diminished to auscultation bilaterally, CARDIOVASCULAR: Regular S1 S2, systolic murmur GI: soft, non-tender, normoactive bowel sounds, : No Renal angle tenderness; EXTREMITIES: No edema, no clubbing, no cyanosis. MUSCULOSKELETAL: No Joint Tenderness; NEURO: Awake; no lateralizing signs. SKIN: No Rash PSYCH; flat affect Vitals/I&O's: Vital Signs Temp Pulse Resp BP Pulse Ox 97.9 F 71 18 106/54 L 94 01/20/19 05:10 01/20/19 07:22 01/20/19 05:10 01/20/19 05:10 01/20/19 07:24 Oxygen Flow Rate (L/min) 2 Oxygen Delivery Method Room Air Weight: 81.3 kg Body Mass Index (BMI) 34.6 Finger Stick Blood Glucose 119 Intake and Output for Last 24 Hours 01/18/19 01/19/19 01/20/19 23:59 23:59 23:59 Intake Total 1400 / 1400 469 / 469 Output Total 600 / 600 Balance 800 / 800 469 / 469 Laboratory Results 01/19/19 09:49: POC Glucose 106 01/19/19 11:17: POC Glucose 126 H 01/19/19 15:58: POC Glucose 220 H 01/19/19 19:35: Troponin I < 0.015 01/19/19 21:42: Troponin I 0.036 01/19/19 21:47: POC Glucose 261 H 01/20/19 00:34: Troponin I 0.112 H 01/20/19 03:06: POC Glucose 154 H 01/20/19 03:40: Troponin I 0.222 H 01/20/19 06:30: WBC 7.0, RBC 4.05 L, Hgb 12.1, Hct 37.3, MCV 92.1, MCH 29.9, MCHC 32.4, RDW 16.0 H, RDW Differential 52.7 H, Plt Count 156, MPV 11.8, Immature Gran % (Auto) 0.300, Neut % (Auto) 68.4, Lymph % (Auto) 18.2 L, [place] % (Auto) 9.5, Eos % (Auto) 3.0, Baso % (Auto) 0.6, Absolute Neuts (auto) 4.8, Absolute Lymphs (auto) 1.28, Total Counted Not Reportable 01/20/19 06:30: PT 22.8 H, INR 2.0 01/20/19 06:30: Sodium 140, Potassium 4.3, Chloride 107, Carbon Dioxide 31.0, Anion Gap 2 L, BUN 32 H, Creatinine 1.10 H, Estim Creat Clear Calc 32.23, Est GFR (MDRD) Af Amer 62, Est GFR (MDRD) Non-Af 52 L, BUN/Creatinine Ratio 29.1 H, Glucose 80, Calcium 8.2 L, Magnesium 2.2, Troponin I 0.365 H 01/20/19 06:33: POC Glucose 79 Current Medications Acetaminophen (Tylenol) 650 mg PO Q6H PRN PRN PRN Reason: Mild Pain (1-3)/Temp > 100.7 F Last Admin: 01/19/19 19:54 Dose: 650 mg Allopurinol ([facility]yloprim) [facility] Last Admin: 01/19/19 11:19 Dose: 100 mg Aspirin (Ecotrin) 81 mg PO QHS [facility] Last Admin: 01/19/19 21:53 Dose: 81 mg Atorvastatin Calcium (Lipitor) 10 mg PO QHS [facility] Last Admin: 01/19/19 21:53 Dose: 10 mg Dextrose (D50w Syringe) 0 gm IV X1 PRN; Protocol PRN Reason: Hypoglycemia Famotidine (Pepcid) 20 mg PO DAILY [facility] Last Admin: 01/19/19 11:19 Dose: 20 mg Gabapentin (Neurontin) 100 mg PO BID [facility] Last Admin: 01/19/19 21:53 Dose: 100 mg Glucagon () 1 mg IM .X1 PRN PRN Reason: Hypoglycemia Sodium Chloride () 250 mls @ 15 mls/hr IV .[id number] PRN PRN Reason: SALINE FLUSH Insulin Glargine (Lantus (Bk)) 50 units SC DAILY [facility] Last Admin: 01/19/19 11:19 Dose: 50 units Insulin Human Lispro (Humalog Kwikpen ([facility])) 0 unit SQ ACHS & 3AM [facility]; Protocol Last Admin: 01/20/19 07:33 Dose: Not Given Isosorbide Mononitrate (Imdur) 60 mg PO DAILY [facility] Last Admin: 01/19/19 11:41 Dose: Not Given Meclizine HCl (Antivert) 12.5 mg PO TID PRN PRN Melatonin (Melatonin) 3 mg PO QHS PRN PRN PRN Reason: INSOMNIA Last Admin: 01/19/19 21:53 Dose: 3 mg Metoclopramide HCl (Reglan) 5 mg IV Q8H PRN PRN PRN Reason: NAUSEA/VOMITING Metoprolol Tartrate (Lopressor (Beta Michael)) 25 mg PO BID [facility] Last Admin: 01/19/19 21:55 Dose: 25 mg Ondansetron HCl (Zofran) 4 mg IV Q8H PRN PRN PRN Reason: NAUSEA/VOMITING Paroxetine HCl (Paxil) 20 mg PO QHS [facility] Last Admin: 01/19/19 21:55 Dose: 20 mg Ranolazine (Ranexa) 500 mg PO BID [facility] Last Admin: 01/19/19 21:56 Dose: 500 mg Sodium Chloride () 5 - 15 ml IV UD PRN PRN Reason: SALINE FLUSH Last Admin: 01/20/19 04:12 Dose: 5 ml Warfarin Sodium (Coumadin (Pbkc)) 4 mg PO DAILY@1700 [facility] Last Admin: 01/19/19 17:31 Dose: 4 mg Medical Necessity - Tobacco Use Smoking Status: Never smoker Assessment/Plan All Active Problems (Last Reviewed 01/18/19 @ 23:28 by Kasi Mensah MD) BRAEDEN (acute kidney injury) (Acute) Hyperkalemia (Acute) Peripheral vertigo, unspecified (Acute) Chest pain (Acute) Severe sepsis (Resolved) ATN (acute tubular necrosis) (Resolved) Acute bronchitis (Resolved) Acute sinusitis (Resolved) Chest pain, precordial (Resolved) Community acquired pneumonia of right middle lobe of lung (Resolved) Ischemic cardiomyopathy (Resolved) Pneumococcal pneumonia (Resolved) Shock, unspecified (Resolved) Patient is a 73-year-old lady with multiple comorbidities admitted with lightheadedness. Patient also reported having experienced diarrhea for prolonged period of time. Patient was found to have acute kidney injury with severe hyperkalemia. Treatment initiated in the ED and patient admitted to a monitored bed for subsequent management 1. Acute kidney injury secondary to severe dehydration from patient's diarrhea. Patient admitted to the intensive care unit because of the associated hyperkalemia managed with fluids. Kidney function back to baseline 2. Chest pain elevated troponin milan patient with known coronary artery disease EKG obtained the day prior demonstrated paced rhythm. Cardiac enzymes trending up. Given patient significant past cardiac history consultation was placed to cardiology 3. Hyperkalemia treatment initiated in the emergency department monitored in the ICU potassium down to 4.8 from an admission level of 7.6 4. Diabetes mellitus type II uncontrolled with complications including diabetic neuropathy. Patient is on long acting as well as Accu-Cheks before meals and at bedtime and covered with sliding scale insulin 5. Ischemic cardiomyopathy with an ejection fraction of 40% status post AICD placement at [facility] on 12/2013 6. Hypertension: Patient blood pressure on admission was low and still remains relatively low her antihypertensive medications subsequently held 7. CAD with previous DE status post CABG on recommended medications 8. Antiphospholipid syndrome patient is on Coumadin 9. Paroxysmal atrial fibrillation rate controlled patient is on Coumadin 10. Depression patient is on SSRI 11. Gout patient is on allopurinol 12. Diabetic peripheral neuropathy patient is on Neurontin. 13. Chronic heart failure with reduced ejection fraction EF on echo obtained on 12/19 was 25% 14. Dyslipidemia-patient is on statin therapy, continued at home dose 15. DVT prophylaxis patient is on warfarin Code Visit Inpatient E&M: [id number] [place] [id number]
[2019-01-20] MEDS: Allopurinol 100 MG Tablet PO (08:44)
[2019-01-20] MEDS: Ranolazine 500 MG Tablet PO ×2 (08:45→21:26)
[2019-01-20] MEDS: Gabapentin 100 MG Capsule PO ×2 (08:45→21:26)
[2019-01-20] MEDS: Famotidine 20 MG Tablet PO (08:47)
[2019-01-20] MEDS: Metoprolol Tartrate 25 MG Tablet PO ×2 (08:48→21:26)
--- NOTE | 2019-01-20 09:05 | PCM.CONS.C ---
Reason for Consult Date of Consultation: 01/20/19 Reason for Consultation: Abnormal cardiac enzymes History of Present Illness: The patient is a 73 year old F with a complicated cardiac history comprising of coronary artery disease status post coronary artery bypass surgery ischemic cardiomyopathy status post ICD implantation renal dysfunction who presented to the emergency room with nausea and vomiting and not feeling well. Blood work was done which demonstrated that he was she was severely hypokalemic. She was treated for the above and also was seen by the renal doctor. During this hospitalization she was noted to be hypotensive and yesterday developed some chest and jaw discomfort and had mildly abnormal cardiac enzymes. She did undergo a cardiac catheterization the most recent which was in September 2017. It demonstrated a normal left main coronary artery, a left anterior descending artery with a 90% diffuse stenosis in the proximal LAD, first diagonal vessel was small, a total occlusion of the mid left anterior descending artery. The left circumflex artery was dominant to the posterior circulation. There was a 70% ostial stenosis to the right coronary artery which was small. The saphenous vein graft anastomosis to the mid circumflex artery was 100% occluded there was an 80% stenosis from the first proximal to the mid obtuse marginal vessel, the second obtuse marginal vessel was normal and the third obtuse marginal branch had no significant stenosis. The saphenous vein graft to the second diagonal vessel was patent with diffuse 70% stenosis in the distal second diagonal vessel. The graft to the distal portion of the left anterior descending artery was noted to be patent with a 40% stenosis in the mid to distal left anterior descending artery. Medical therapy was recommended. She has also had a APPEALS REFEREE device placed due to severe ischemic cardiomyopathy. This has been checked in the heart group offices. She also has a history of congestive heart failure. She was recently placed on Entresto but also had potassium supplementation by her primary physician and diuretics. [] Past Medical History Allergies/Adverse Reactions: Allergies latex Allergy (Severe, Verified 01/18/19 18:50) Swelling Home Medications: Ambulatory Orders Medication Instructions Recorded Ergocalciferol [Vitamin D] 50,000 unit PO QMONTH 05/09/16 Insulin Glargine,Hum.rec.anlog 50 unit SQ DAILY 05/09/16 [Lantus] Allopurinol [Zyloprim] 100 mg PO DAILY 08/29/17 nitroglycerin 0.4 mg sublingual 0.4 mg SUBLINGUAL Q5M PRN 09/20/17 tablet aspirin 81 mg tablet,delayed 81 mg PO QHS 10/02/17 release gabapentin 600 mg tablet 600 mg PO QDAY 04/01/18 Warfarin [Coumadin] 4 mg PO DAILY 04/26/18 Metformin HCl 500 mg PO DAILY #0 04/27/18 Colchicine [Colcrys] 0.6 mg PO DAILY PRN 09/02/18 Isosorbide Mononitrate [Isosorbide 60 mg PO DAILY 09/02/18 Mononitrate ER] Paroxetine HCl [Paxil] 20 mg PO QHS 09/02/18 Ranitidine [Zantac] 150 mg PO DAILY 09/02/18 Simvastatin [Zocor] 20 mg PO QHS 09/02/18 Ranolazine [Ranexa] 500 mg PO BID #60 tab 09/04/18 metoprolol tartrate 25 mg tablet 25 mg PO BID #180 tab 09/22/18 potassium chloride ER 20 mEq 20 meq PO BID tab 10/24/18 tablet,extended release furosemide 80 mg tablet 80 mg PO BID tab 11/21/18 sacubitril 97 mg-valsartan 103 mg 1 tab PO BID #180 tab 11/21/18 tablet Past Medical History (Chronic Problems): Chronic Problems (Last Reviewed 01/18/19 @ 23:28 by Kasi Mensah MD) Nonrheumatic aortic (valve) stenosis with insufficiency (Chronic) CAD (coronary artery disease) (Chronic) Secondary pulmonary arterial hypertension (Chronic) Essential (primary) hypertension (Chronic) Automatic implantable cardiac defibrillator in situ (Chronic 12/21/13) Acute kidney failure (Chronic) Atherosclerosis of coronary artery bypass graft without angina pectoris (Chronic) CABG: RIVERA-Distal LAD, SVG-Prox LAD, SVG-OM1, SVG-Left PDA 12/2001; Ischemic cardiomyopathy (Chronic) Chronic systolic congestive heart failure (Chronic) Dyspnea on exertion (Chronic) HLD (hyperlipidemia) (Chronic) Myocardial infarction (Chronic) H/O coronary artery bypass surgery (Chronic 12/02/01) CABG: RIVERA-Distal LAD, SVG-Prox LAD, SVG-OM1, SVG-Left PDA 12/2001; Hypercoagulable state, primary (Chronic) RBBB (right bundle branch block) (Chronic) NSTEMI (non-ST elevated myocardial infarction) (Chronic) Obesity (Chronic) Anti-phospholipid syndrome (Chronic) Surgical History: appendectomy, cholecystectomy, coronary bypass surgery, hysterectomy, pacemaker implantation - *Family History Maternal Family History: Family History (Last Reviewed 01/18/19 @ 23:21 by Kasi Mensah MD) Mother CAD (coronary artery disease) Myocardial infarction, Onset Age: 62 Brother Myocardial infarction CAD (coronary artery disease) Sister Bone cancer Sister CAD (coronary artery disease) Myocardial infarction Hypertension History Items: Heart Disease Paternal Family History: Family History (Last Reviewed 01/18/19 @ 23:21 by Kasi Mensah MD) Mother CAD (coronary artery disease) Myocardial infarction, Onset Age: 62 Brother Myocardial infarction CAD (coronary artery disease) Sister Bone cancer Sister CAD (coronary artery disease) Myocardial infarction Hypertension History Items: Heart Disease, - - Father with anti-phospholipid syndrome Sibling Family History: Family History (Last Reviewed 01/18/19 @ 23:21 by Kasi Mensah MD) Mother CAD (coronary artery disease) Myocardial infarction, Onset Age: 62 Brother Myocardial infarction CAD (coronary artery disease) Sister Bone cancer Sister CAD (coronary artery disease) Myocardial infarction Hypertension History Items: Cancer, Heart Disease, - Lives: Spouse/ Significant Other Smoking Status: Never smoker Alcohol: None Drugs: None Review of Systems - Review of Systems General: Reports: Fatigue, Malaise, Weakness. Denies: Fever, Night Sweats HEENT: Denies: Vision Change Cardiovascular: Reports: Chest Tightness. Denies: Chest Discomfort, Shortness of Breath, Orthopnea, PND, Peripheral Edema, Palpitations, Lightheadedness, Dizziness, Near Syncope, Syncope Respiratory: Denies: Cough, Sputum Production, Hemoptysis Gastrointestinal: Denies: Hematemesis, Hematochezia, Melena Genitourinary: Denies: Dysuria, Hematuria Skin: Denies: Rash Neurological: Reports: Dizziness Psychiatric: Denies: Anxiety Endocrine: Denies: Unexplained Weight Loss Hematologic/ Lymphatic: Denies: Anemia Subjectve: Pleasant lady in no distress Objective: Vital Signs Temp Pulse Resp BP Pulse Ox 97.9 F 75 18 106/54 L 94 01/20/19 05:10 01/20/19 08:48 01/20/19 05:10 01/20/19 05:10 01/20/19 07:24 Oxygen Flow Rate (L/min) 2 Oxygen Delivery Method Room Air Weight: 179 lb 3.773 oz Body Mass Index (BMI) 34.6 Finger Stick Blood Glucose 119 Intake and Output for Last 24 Hours 01/18/19 01/19/19 01/20/19 23:59 23:59 23:59 Intake Total 1400 / 1400 469 / 469 Output Total 600 / 600 Balance 800 / 800 469 / 469 General: Awake, Alert, Oriented x 3 HEENT: PERRL, EOMI, Sclera Non Icteric Neck: Supple, Good ROM, No Lymph Node Enlargement Lungs: Clear to auscultation Cardiovascular: Regular Rhythm, Normal S1, Normal S2, No Murmurs, No Rubs, No Gallops Vascular: No Carotid Bruits, Normal Femoral Pulses, Normal Radial Pulses, Normal Dorsalis Pedal Pulse, Normal Posterior Tibial Pulses Abdomen: Bowel Sounds Present, Soft, Non Tender, No HSM, No Organomegaly Extremities: No Cyanosis, No Clubbing, No edema Musculoskeletal: No Erythema Lymphatic: No Lymph Node Enlargement Neurological: No Focal Motor or Sensory Deficit Psych/Mental Status: Appropriate 01/19/19 19:35: Troponin I < 0.015 01/19/19 21:42: Troponin I 0.036 01/20/19 00:34: Troponin I 0.112 H 01/20/19 03:40: Troponin I 0.222 H 01/20/19 06:30: WBC 7.0, RBC 4.05 L, Hgb 12.1, Hct 37.3, MCV 92.1, MCH 29.9, MCHC 32.4, RDW 16.0 H, RDW Differential 52.7 H, Plt Count 156, MPV 11.8, Immature Gran % (Auto) 0.300, Neut % (Auto) 68.4, Lymph % (Auto) 18.2 L, [place] % (Auto) 9.5, Eos % (Auto) 3.0, Baso % (Auto) 0.6, Absolute Neuts (auto) 4.8, Total Counted Not Reportable 01/20/19 06:30: PT 22.8 H, INR 2.0 01/20/19 06:30: Sodium 140, Potassium 4.3, Chloride 107, Carbon Dioxide 31.0, Anion Gap 2 L, BUN 32 H, Creatinine 1.10 H, Est GFR (MDRD) Af Amer 62, Est GFR (MDRD) Non-Af 52 L, BUN/Creatinine Ratio 29.1 H, Glucose 80, Calcium 8.2 L, Magnesium 2.2, Troponin I 0.365 H Rhythm: EKG: Ventricular paced rhythm ECHO: Stress Test: Cardiac Cath: PCI: CT Surgery: Holter monitor: EPS: PPM: CXR: Chest CT Scan: Assessment/Plan 1. Coronary artery disease Patient has known coronary artery disease and recently had mildly abnormal cardiac enzymes. She underwent a cardiac catheterization within the last year and was noted to have diffuse distal disease. I suspect that the above was likely a type II myocardial infarction and my recommendation at this time would be to continue with aggressive medical therapy. Especially in light of the fact that her kidney function is just recovering I would not suggest any invasive therapy at this time. 2. Left ventricular systolic dysfunction She does have evidence of left ventricular systolic dysfunction but has not had any heart failure Will resume the Entresto and continue the beta-milo 3. Status post ICD implantation We will continue with ICD checks through our office. 4. Congestive heart failure She is [place] Heart Association class III-IV. We will continue diuretic Will resume Entresto when renal function has stabilized No potassium supplementation 5. Paroxysmal atrial fibrillation Patient will continue with anticoagulation to maintain INR of 2-3 6. Factor V Leiden deficiency Patient remains on anticoagulation for the above as well. 7. Hyperkalemia The above was likely secondary to potassium supplementation in addition to a dehydrated state it appears the above has been corrected. Thank you for allowing me to participate in the care of your patient. Please don't hesitate to call if any issues arise
--- NOTE | 2019-01-20 09:10 | CON.PCM_ITS ---
Reason for Consult Date of Consultation: 01/20/19 Reason for Consultation: Abnormal cardiac enzymes History of Present Illness: The patient is a 73 year old F with a complicated cardiac history comprising of coronary artery disease status post coronary artery bypass surgery ischemic c ardiomyopathy status post ICD implantation renal dysfunction who presented to the emergency room with nausea and vomiting and not feeling well. Blood work was done which demonstrated that he was she was severely hypokalemic. She was treated for the above and also was seen by the renal doctor. During this hospitalization she was noted to be hypotensive and yesterday developed some chest and jaw discomfort and had mildly abnormal cardiac enzymes. She did undergo a cardiac catheterization the most recent which was in September 2017. It demonstrated a normal left main coronary artery, a left anterior descending artery with a 90% diffuse stenosis in the proximal LAD, first diagonal vessel was small, a total occlusion of the mid left anterior descending artery. The left circumflex artery was dominant to the posterior circulation. There was a 70% ostial stenosis to the right coronary artery which was small. The saphenous vein graft anastomosis to the mid circumflex artery was 100% occluded there was an 80% stenosis from the first proximal to the mid obtuse marginal vessel, the second obtuse marginal vessel was normal and the third obtuse marginal branch had no significant stenosis. The saphenous vein graft to the second diagonal vessel was patent with diffuse 70% stenosis in the distal second diagonal vessel. The graft to the distal portion of the left anterior descending artery was noted to be patent with a 40% stenosis in the mid to distal left anterior descending artery. Medical therapy was recommended. She has also had a CONSUMER RECRUITER device placed due to severe ischemic cardiomyopathy. This has been checked in the heart group offices. She also has a history of congestive heart failure. She was recently placed on Entresto but also had potassium supplementation by her primary physician and diuretics. [] Past Medical History Allergies/Adverse Reactions: Allergies latex Allergy (Severe, Verified 01/18/19 18:50) Swelling Home Medications: Ambulatory Orders Medication Instructions Recorded Ergocalciferol [Vitamin D] 50,000 unit PO QMONTH 05/09/16 Insulin Glargine,Hum.rec.anlog 50 unit SQ DAILY 05/09/16 [Lantus] Allopurinol [Zyloprim] 100 mg PO DAILY 08/29/17 nitroglycerin 0.4 mg sublingual 0.4 mg SUBLINGUAL Q5M PRN 09/20/17 tablet aspirin 81 mg tablet,delayed 81 mg PO QHS 10/02/17 release gabapentin 600 mg tablet 600 mg PO QDAY 04/01/18 Warfarin [Coumadin] 4 mg PO DAILY 04/26/18 Metformin HCl 500 mg PO DAILY #0 04/27/18 Colchicine [Colcrys] 0.6 mg PO DAILY PRN 09/02/18 Isosorbide Mononitrate [Isosorbide 60 mg PO DAILY 09/02/18 Mononitrate ER] Paroxetine HCl [Paxil] 20 mg PO QHS 09/02/18 Ranitidine [Zantac] 150 mg PO DAILY 09/02/18 Simvastatin [Zocor] 20 mg PO QHS 09/02/18 Ranolazine [Ranexa] 500 mg PO BID #60 tab 09/04/18 metoprolol tartrate 25 mg tablet 25 mg PO BID #180 tab 09/22/18 potassium chloride ER 20 mEq 20 meq PO BID tab 10/24/18 tablet,extended release furosemide 80 mg tablet 80 mg PO BID tab 11/21/18 sacubitril 97 mg-valsartan 103 mg 1 tab PO BID #180 tab 11/21/18 tablet Past Medical History (Chronic Problems): Chronic Problems (Last Reviewed 01/18/19 @ 23:28 by Kasi Mensah MD) Nonrheumatic aortic (valve) stenosis with insufficiency (Chronic) CAD (coronary artery disease) (Chronic) Secondary pulmonary arterial hypertension (Chronic) Essential (primary) hypertension (Chronic) Automatic implantable cardiac defibrillator in situ (Chronic 12/21/13) Acute kidney failure (Chronic) Atherosclerosis of coronary artery bypass graft without angina pectoris (Chronic) CABG: RIVERA-Distal LAD, SVG-Prox LAD, SVG-OM1, SVG-Left PDA 12/2001; Ischemic cardiomyopathy (Chronic) Chronic systolic congestive heart failure (Chronic) Dyspnea on exertion (Chronic) HLD (hyperlipidemia) (Chronic) Myocardial infarction (Chronic) H/O coronary artery bypass surgery (Chronic 12/02/01) CABG: RIVERA-Distal LAD, SVG-Prox LAD, SVG-OM1, SVG-Left PDA 12/2001; Hypercoagulable state, primary (Chronic) RBBB (right bundle branch block) (Chronic) NSTEMI (non-ST elevated myocardial infarction) (Chronic) Obesity (Chronic) Anti-phospholipid syndrome (Chronic) Surgical History: appendectomy, cholecystectomy, coronary bypass surgery, hysterectomy, pacemaker implantation - *Family History Maternal Family History: Family History (Last Reviewed 01/18/19 @ 23:21 by Kasi Mensah MD) Mother CAD (coronary artery disease) Myocardial infarction, Onset Age: 62 Brother Myocardial infarction CAD (coronary artery disease) Sister Bone cancer Sister CAD (coronary artery disease) Myocardial infarction Hypertension History Items: Heart Disease Paternal Family History: Family History (Last Reviewed 01/18/19 @ 23:21 by Kasi Mensah MD) Mother CAD (coronary artery disease) Myocardial infarction, Onset Age: 62 Brother Myocardial infarction CAD (coronary artery disease) Sister Bone cancer Sister CAD (coronary artery disease) Myocardial infarction Hypertension History Items: Heart Disease, - - Father with anti-phospholipid syndrome Sibling Family History: Family History (Last Reviewed 01/18/19 @ 23:21 by Kasi Mensah MD) Mother CAD (coronary artery disease) Myocardial infarction, Onset Age: 62 Brother Myocardial infarction CAD (coronary artery disease) Sister Bone cancer Sister CAD (coronary artery disease) Myocardial infarction Hypertension History Items: Cancer, Heart Disease, - Lives: Spouse/ Significant Other Smoking Status: Never smoker Alcohol: None Drugs: None Review of Systems - Review of Systems General: Reports: Fatigue, Malaise, Weakness. Denies: Fever, Night Sweats HEENT: Denies: Vision Change Cardiovascular: Reports: Chest Tightness. Denies: Chest Discomfort, Shortness of Breath, Orthopnea, PND, Peripheral Edema, Palpitations, Lightheadedness, Dizziness, Near Syncope, Syncope Respiratory: Denies: Cough, Sputum Production, Hemoptysis Gastrointestinal: Denies: Hematemesis, Hematochezia, Melena Genitourinary: Denies: Dysuria, Hematuria Skin: Denies: Rash Neurological: Reports: Dizziness Psychiatric: Denies: Anxiety Endocrine: Denies: Unexplained Weight Loss Hematologic/ Lymphatic: Denies: Anemia Subjectve: Pleasant lady in no distress Objective: Vital Signs Temp Pulse Resp BP Pulse Ox 97.9 F 75 18 106/54 L 94 01/20/19 05:10 01/20/19 08:48 01/20/19 05:10 01/20/19 05:10 01/20/19 07:24 Oxygen Flow Rate (L/min) 2 Oxygen Delivery Method Room Air Weight: 179 lb 3.773 oz Body Mass Index (BMI) 34.6 Finger Stick Blood Glucose 119 Intake and Output for Last 24 Hours 01/18/19 01/19/19 01/20/19 23:59 23:59 23:59 Intake Total 1400 / 1400 469 / 469 Output Total 600 / 600 Balance 800 / 800 469 / 469 General: Awake, Alert, Oriented x 3 HEENT: PERRL, EOMI, Sclera Non Icteric Neck: Supple, Good ROM, No Lymph Node Enlargement Lungs: Clear to auscultation Cardiovascular: Regular Rhythm, Normal S1, Normal S2, No Murmurs, No Rubs, No Gallops Vascular: No Carotid Bruits, Normal Femoral Pulses, Normal Radial Pulses, Normal Dorsalis Pedal Pulse, Normal Posterior Tibial Pulses Abdomen: Bowel Sounds Present, Soft, Non Tender, No HSM, No Organomegaly Extremities: No Cyanosis, No Clubbing, No edema Musculoskeletal: No Erythema Lymphatic: No Lymph Node Enlargement Neurological: No Focal Motor or Sensory Deficit Psych/Mental Status: Appropriate 01/19/19 19:35: Troponin I < 0.015 01/19/19 21:42: Troponin I 0.036 01/20/19 00:34: Troponin I 0.112 H 01/20/19 03:40: Troponin I 0.222 H 01/20/19 06:30: WBC 7.0, RBC 4.05 L, Hgb 12.1, Hct 37.3, MCV 92.1, MCH 29.9, MCHC 32.4, RDW 16.0 H, RDW Differential 52.7 H, Plt Count 156, MPV 11.8, Immature Gran % (Auto) 0.300, Neut % (Auto) 68.4, Lymph % (Auto) 18.2 L, [place] % (Auto) 9.5, Eos % (Auto) 3.0, Baso % (Auto) 0.6, Absolute Neuts (auto) 4.8, Total Counted Not Reportable 01/20/19 06:30: PT 22.8 H, INR 2.0 01/20/19 06:30: Sodium 140, Potassium 4.3, Chloride 107, Carbon Dioxide 31.0, Anion Gap 2 L, BUN 32 H, Creatinine 1.10 H, Est GFR (MDRD) Af Amer 62, Est GFR (MDRD) Non-Af 52 L, BUN/Creatinine Ratio 29.1 H, Glucose 80, Calcium 8.2 L, Magnesium 2.2, Troponin I 0.365 H Rhythm: EKG: Ventricular paced rhythm ECHO: Stress Test: Cardiac Cath: PCI: CT Surgery: Holter monitor: EPS: PPM: CXR: Chest CT Scan: Assessment/Plan 1. Coronary artery disease Patient has known coronary artery disease and recently had mildly abnormal cardiac enzymes. She underwent a cardiac catheterization within the last year and was noted to have diffuse distal disease. I suspect that the above was likely a type II myocardial infarction and my recommendation at this time would be to continue with aggressive medical therapy. Especially in light of the fact that her kidney function is just recovering I would not suggest any invasive therapy at this time. 2. Left ventricular systolic dysfunction * She does have evidence of left ventricular systolic dysfunction but has not had any heart failure * Will resume the Entresto and continue the beta-milo * 3. Status post ICD implantation * We will continue with ICD checks through our office. * 4. Congestive heart failure * She is [place] Heart Association class III-IV. * We will continue diuretic * Will resume Entresto when renal function has stabilized * No potassium supplementation * 5. Paroxysmal atrial fibrillation * Patient will continue with anticoagulation to maintain INR of 2-3 * 6. Factor V Leiden deficiency * Patient remains on anticoagulation for the above as well. * * 7. Hyperkalemia * The above was likely secondary to potassium supplementation in addition to a dehydrated state it appears the above has been corrected. * * Thank you for allowing me to participate in the care of your patient. Please don't hesitate to call if any issues arise
[2019-01-20 11:36] LABS: Bedside Glucose 202 mg/dL (70-110)
--- NOTE | 2019-01-20 13:46 | PN.RENAL_ITS ---
Patient Problems: Active and Suspected Problems (Last Reviewed 01/18/19 @ 23:28 by Kasi Mensah MD) BRAEDEN (acute kidney injury) (Acute) Hyperkalemia (Acute) Peripheral vertigo, unspecified (Acute) Subjective: potassium and renal fxn improved. Complained of jaw pain last night. Cardiology consulted. - Physical Exam General: Alert, Oriented x3, Cooperative, No apparent distress Lungs: Clear to auscultation Cardiovascular: Regular rate Abdomen: Soft, Non Tender Extremities: No edema Psych/Mental Status: Alert and oriented to time, place, person, mood and affect Vital Signs Temp Pulse Resp BP Pulse Ox 98.0 F 72 17 112/56 L 99 01/20/19 10:41 01/20/19 11:04 01/20/19 10:41 01/20/19 10:41 01/20/19 10:41 Oxygen Flow Rate (L/min) 2 Oxygen Delivery Method Room Air Weight: 81.3 kg Body Mass Index (BMI) 34.6 Finger Stick Blood Glucose 119 Intake and Output for Last 24 Hours 01/18/19 01/19/19 01/20/19 23:59 23:59 23:59 Intake Total 1400 / 1400 869 / 869 Output Total 600 / 600 Balance 800 / 800 869 / 869 Laboratory Tests Past 24 Hrs 01/19/19 01/19/19 01/20/19 19:35 21:42 00:34 WBC RBC Hgb Hct MCV MCH MCHC RDW RDW Differential Plt Count MPV Immature Gran % (Auto) Neut % (Auto) Lymph % (Auto) [place] % (Auto) Eos % (Auto) Baso % (Auto) Absolute Neuts (auto) Absolute Lymphs (auto) Total Counted PT INR Sodium Potassium Chloride Carbon Dioxide Anion Gap BUN Creatinine Estim Creat Clear Calc Est GFR (MDRD) Af Amer Est GFR (MDRD) Non-Af BUN/Creatinine Ratio Glucose Calcium Magnesium Troponin I < 0.015 0.036 0.112 H 01/20/19 01/20/19 01/20/19 03:40 06:30 06:30 WBC 7.0 RBC 4.05 L Hgb 12.1 Hct 37.3 MCV 92.1 MCH 29.9 MCHC 32.4 RDW 16.0 H RDW Differential 52.7 H Plt Count 156 MPV 11.8 Immature Gran % (Auto) 0.300 Neut % (Auto) 68.4 Lymph % (Auto) 18.2 L [place] % (Auto) 9.5 Eos % (Auto) 3.0 Baso % (Auto) 0.6 Absolute Neuts (auto) 4.8 Absolute Lymphs (auto) 1.28 Total Counted Not Reportable PT 22.8 H INR 2.0 Sodium Potassium Chloride Carbon Dioxide Anion Gap BUN Creatinine Estim Creat Clear Calc Est GFR (MDRD) Af Amer Est GFR (MDRD) Non-Af BUN/Creatinine Ratio Glucose Calcium Magnesium Troponin I 0.222 H 01/20/19 01/20/19 06:30 09:22 WBC RBC Hgb Hct MCV MCH MCHC RDW RDW Differential Plt Count MPV Immature Gran % (Auto) Neut % (Auto) Lymph % (Auto) [place] % (Auto) Eos % (Auto) Baso % (Auto) Absolute Neuts (auto) Absolute Lymphs (auto) Total Counted PT INR Sodium 140 Potassium 4.3 Chloride 107 Carbon Dioxide 31.0 Anion Gap 2 L BUN 32 H Creatinine 1.10 H Estim Creat Clear Calc 32.23 Est GFR (MDRD) Af Amer 62 Est GFR (MDRD) Non-Af 52 L BUN/Creatinine Ratio 29.1 H Glucose 80 Calcium 8.2 L Magnesium 2.2 Troponin I 0.365 H 0.157 H POC Glucose 01/20/19 01/20/19 01/20/19 11:20 06:33 03:06 POC Glucose 202 H 79 154 H 01/19/19 01/19/19 21:47 15:58 POC Glucose 261 H 220 H Medical Necessity - Tobacco Use Smoking Status: Never smoker Assessment/Plan All Active Problems (Last Reviewed 01/18/19 @ 23:28 by Kasi Mensah MD) BRAEDEN (acute kidney injury) (Acute) Hyperkalemia (Acute) Peripheral vertigo, unspecified (Acute) Chest pain (Acute) Severe sepsis (Resolved) ATN (acute tubular necrosis) (Resolved) Acute bronchitis (Resolved) Acute sinusitis (Resolved) Chest pain, precordial (Resolved) Community acquired pneumonia of right middle lobe of lung (Resolved) Ischemic cardiomyopathy (Resolved) Pneumococcal pneumonia (Resolved) Shock, unspecified (Resolved) 1. Hyperkalemia due to BRAEDEN, K supplements resolved 2. BRAEDEN due to dehydration. Creatinine improved to 1.1. Continue to hold diuretics, entresto 3. DM2 on insulin, primary mgmt 4. HTN stable 5, Chest pain cardiology consulted
[2019-01-20 17:00] LABS: Bedside Glucose 254 mg/dL (70-110)
[2019-01-20] MEDS: Ondansetron 4 MG/2 ML Vial IV (19:32)
[2019-01-20] MEDS: Aspirin E.C. 81 MG Tablet PO (21:25)
[2019-01-20] MEDS: Atorvastatin Calcium 10 MG Tablet PO (21:26)
[2019-01-20] MEDS: Paroxetine 20 MG Tablet PO (21:26)
[2019-01-20] MEDS: MELATONIN 3 MG TABLET PO (21:26)
[2019-01-20 23:35] LABS: Bedside Glucose 237 mg/dL (70-110)
[2019-01-21] VITALS (8 sets, daily range): BP systolic 78–125; BP diastolic 44–60; PULSE 67–75; RESP 16; TEMP 36.6–36.8; O2SAT 94–97
--- NOTE | 2019-01-21 01:03 | NURSING ---
Relinquished care of pt to Candace MARTELL at this time.
[2019-01-21] MEDS: Insulin Lispro 100 UNIT/ML INSULN.PEN SQ (02:21)
[2019-01-21 02:25] LABS: Bedside Glucose 156 mg/dL (70-110)
--- NOTE | 2019-01-21 02:50 | NURSING ---
PT GOT UP TO THE RESTROOM, CONTINUES TO HAVE BLEEDING HEMORRHOIDS, TOILET W LARGE AMT OF BRIGHT RED BLOOD. PT FELT LIKE THE AMT OF BLOOD WAS MORE THAN USUAL. BLOOD SUGAR CHECKED, 156, COVERAGE GIVEN. BP 78/44, HR, 67. CALLED THE HOSPITALIST AND 1 L NS BOLUS WAS ORDERED.
[2019-01-21] MEDS: 0.9% Normal Saline 1,000 ML 999 ML IV (03:06)
[2019-01-21 05:50] LABS: Absolute Lymphocyte Count 1.23 X10^3/ul (0.83-4.51); Absolute Neutrophil Count 3.8 X10^3/uL (2.0-7.7); Basophil# 0.03 X10^3/uL; Basophil% 0.5 % (0-1); Eosinophil# 0.18 X10^3/uL; Hematocrit 34.6 % (37-47); Hemoglobin 11.3 g/dl (12.0-15.0); Lymphocyte # 1.23 X10^3/ul (4.0); Lymphocyte % 20.7 % (19-41); Mean Corp Hgb Conc 32.7 g/gl (32-36); Mean Corpuscular Hgb 30.1 pg (27.0-32.0); Mean Corpuscular Volume 92.3 fL (81-99); Mean Platelet Vol. 11.6 fl (6.2-12.0); Monocyte# 0.71 X10^3/uL; Neutrophil # 3.78 X10^3/uL (2.7-7.7); Neutrophil % 63.8 % (47-70); Platelet Count 141 K/mm3 (150-450); RBC Distribution Width CV 15.7 % (11.6-14.6); RBC Distribution Width SD 51.4 fl (35.1-43.9); Red Blood Count 3.75 M/mm3 (4.2-5.4); White Blood Count 5.9 K/mm3 (4.4-11.0)
[2019-01-21 05:51] LABS: International Normalized Ratio 2.3; POSITIVE COUNT NO; POSITIVE DIFFERENTIAL NO; POSITIVE MORPHOLOGY NO
[2019-01-21 06:19] LABS: Anion Gap 6 (5-15); BUN 24 mg/dL (7-18); BUN/Creat Ratio 30.2 RATIO (10-20); Calcium,Total 8.3 mg/dL (8.5-10.1); Chloride 110 mmol/L (98-107); Creatinine, Serum 0.79 mg/dL (0.55-1.02); EST Glomerular Filtration Rate 75 mL/min (>60); Est Glom Filt Rate - Afr Amer 91 mL/min (>60); Estimated Creatinine Clearance 35.45 ml/min; Glucose 79 mg/dL (74-106); Potassium 4.2 mmol/L (3.5-5.1); Sodium Level 144 mmol/L (136-145)
[2019-01-21 06:30] LABS: Bedside Glucose 87 mg/dL (70-110)
--- NOTE | 2019-01-21 08:25 | PN.CARD_ITS ---
Subjectve: Patient seen and evaluated. Appears to be stable at this time. No further chest pain. Objective: Vital Signs Temp Pulse Resp BP Pulse Ox 98.0 F 69 16 99/60 94 01/21/19 04:30 01/21/19 07:10 01/21/19 04:45 01/21/19 04:30 01/21/19 04:30 Oxygen Flow Rate (L/min) 2 Oxygen Delivery Method Room Air Weight: 182 lb 15.739 oz Body Mass Index (BMI) 34.6 Finger Stick Blood Glucose 119 Intake and Output for Last 24 Hours 01/19/19 01/20/19 01/21/19 23:59 23:59 23:59 Intake Total 1400 / 1400 1269 / 1269 1000 / 1000 Output Total 600 / 600 Balance 800 / 800 1269 / 1269 1000 / 1000 General: Awake, Alert, Oriented x 3 HEENT: PERRL, EOMI, Sclera Non Icteric Neck: Supple, Good ROM, No Lymph Node Enlargement Lungs: Clear to auscultation Cardiovascular: Regular Rhythm, Normal S1, Normal S2, No Murmurs, No Rubs, No Gallops Vascular: No Carotid Bruits, Normal Femoral Pulses, Normal Radial Pulses, Normal Dorsalis Pedal Pulse, Normal Posterior Tibial Pulses Abdomen: Bowel Sounds Present, Soft, Non Tender, No HSM, No Organomegaly Extremities: No Cyanosis, No Clubbing, No edema Musculoskeletal: No Erythema Skin: No Rashes Lymphatic: No Lymph Node Enlargement Neurological: No Focal Motor or Sensory Deficit Psych/Mental Status: Appropriate 01/20/19 09:22: Troponin I 0.157 H 01/21/19 05:25: WBC 5.9, RBC 3.75 L, Hgb 11.3 L, Hct 34.6 L, MCV 92.3, MCH 30.1, MCHC 32.7, RDW 15.7 H, RDW Differential 51.4 H, Plt Count 141 L, MPV 11.6, Immature Gran % (Auto) 0.000, Neut % (Auto) 63.8, Lymph % (Auto) 20.7, [place] % (Auto) 12.0 H, Eos % (Auto) 3.0, Baso % (Auto) 0.5, Absolute Neuts (auto) 3.8, Total Counted Not Reportable 01/21/19 05:25: PT 25.0 H, INR 2.3 01/21/19 05:25: Sodium 144, Potassium 4.2, Chloride 110 H, Carbon Dioxide 28.0, Anion Gap 6, BUN 24 H, Creatinine 0.79, Est GFR (MDRD) Af Amer 91, Est GFR (MDRD) Non-Af 75, BUN/Creatinine Ratio 30.2 H, Glucose 79, Calcium 8.3 L Rhythm: EKG: ECHO: Stress Test: Cardiac Cath: PCI: CT Surgery: Holter monitor: EPS: PPM: CXR: Chest CT Scan: Medical Necessity - Tobacco Use Smoking Status: Never smoker Assessment/Plan 1. Coronary artery disease Patient has known coronary artery disease and recently had mildly abnormal cardiac enzymes. She underwent a cardiac catheterization within the last year and was noted to have diffuse distal disease. I suspect that the above was likely a type II myocardial infarction and my recommendation at this time would be to continue with aggressive medical therapy. Especially in light of the fact that her kidney function is just recovering I would not suggest any invasive therapy at this time. 2. Left ventricular systolic dysfunction * She does have evidence of left ventricular systolic dysfunction but has not had any heart failure * Will resume the Entresto as an outpatient and continue the beta-milo * 3. Status post ICD implantation * We will continue with ICD checks through our office. * 4. Congestive heart failure * She is [place] Heart Association class III-IV. * We will continue diuretic * Will resume Entresto when renal function has stabilized as an outpatient * No potassium supplementation * 5. Paroxysmal atrial fibrillation * Patient will continue with anticoagulation to maintain INR of 2-3 * 6. Factor V Leiden deficiency * Patient remains on anticoagulation for the above as well. * * 7. Hyperkalemia * The above was likely secondary to potassium supplementation in addition to a dehydrated state it appears the above has been corrected. * * Thank you for allowing me to participate in the care of your patient. Please don't hesitate to call if any issues arise. Patient was evaluated and is stable to be discharged for outpatient follow-up. Follow-up to see me in 2 to 4 weeks.
[2019-01-21] MEDS: Allopurinol 100 MG Tablet PO (08:43)
[2019-01-21] MEDS: Isosorbide Mononitrate 60 MG Tablet PO (08:44)
[2019-01-21] MEDS: Ranolazine 500 MG Tablet PO (08:45)
[2019-01-21] MEDS: Metoprolol Tartrate 25 MG Tablet PO (08:45)
[2019-01-21] MEDS: Famotidine 20 MG Tablet PO (08:45)
[2019-01-21] MEDS: Gabapentin 100 MG Capsule PO (08:45)
--- NOTE | 2019-01-21 08:59 | PCM.PN.BLA ---
Progress Note Renal function return to baseline, potassium stable. Euvolemic with good oxygenation on RA. BP stable. Continue with Entresto on discharge. Hold diuretics and potassium supplement until f/u in office. Labs in one week. She has f/u with me on 01/28. F/U with pcp, cardiology.
--- NOTE | 2019-01-21 09:02 | DCINST_ITS ---
- Discharge Diagnoses Current Active Problems: Current Active and Chronic Problems (Last Reviewed 01/18/19 @ 23:28 by Kasi Mensah MD) BRAEDEN (acute kidney injury) (Acute) Hyperkalemia (Acute) Peripheral vertigo, unspecified (Acute) You will use the following diet at home:: Fluid restricted (specify 2000 mls, 1500 mls) - 1500 Discharge Activity: Return to Normal Activity, May not drive while taking narcotic pain medications. Allergies/Adverse Reactions: Allergies latex Allergy (Severe, Verified 01/18/19 18:50) Swelling Medications to take at Discharge Ergocalciferol [Vitamin D] 50,000 unit PO QMONTH 05/09/16 Insulin Glargine,Hum.rec.anlog [Lantus] 50 unit SQ DAILY 05/09/16 Allopurinol [Zyloprim] 100 mg PO DAILY 08/29/17 nitroglycerin 0.4 mg sublingual tablet 0.4 mg SUBLINGUAL Q5M PRN 09/20/17 aspirin 81 mg tablet,delayed release 81 mg PO QHS 10/02/17 gabapentin 600 mg tablet 600 mg PO QDAY 04/01/18 Warfarin [Coumadin] 4 mg PO DAILY 04/26/18 Metformin HCl 500 mg PO DAILY #0 04/27/18 Colchicine [Colcrys] 0.6 mg PO DAILY PRN 09/02/18 Isosorbide Mononitrate [Isosorbide Mononitrate ER] 60 mg PO DAILY 09/02/18 Paroxetine HCl [Paxil] 20 mg PO QHS 09/02/18 Ranitidine [Zantac] 150 mg PO DAILY 09/02/18 Simvastatin [Zocor] 20 mg PO QHS 09/02/18 Ranolazine [Ranexa] 500 mg PO BID #60 tab 09/04/18 metoprolol tartrate 25 mg tablet 25 mg PO BID #180 tab 09/22/18 Furosemide [Lasix] 40 mg PO DAILY #30 tablet 01/21/19 proCHLORPERazine tablet [Compazine tablet] 5 mg PO TID PRN PRN #30 tablet 01/21/19 The following prescriptions were given: Furosemide [Lasix] 40 mg PO DAILY #30 tablet proCHLORPERazine tablet [Compazine tablet] 5 mg PO TID PRN PRN #30 tablet PRN Reason: Nausea/Vomiting Primary Care Physician: Ranjan Hyatt Chi, MD [Primary Care Provider] - Please follow up with your Primary Care Physician in: in 5-7 days Test Results: Test results from this visit will be discussed in further detail at your follow- up appointment, if applicable. Please Follow Up With: Liseth Yee DO When: in 1-2 weeks Please Follow Up With: Marco Antonio Sherwood MD When: in 2-3 weeks Proposed Discharge Date: 01/21/19
--- NOTE | 2019-01-21 09:05 | DS.PCM_ITS ---
Discharge Date and Diagnosis - Problem List Patient Problems: Active and Suspected Problems (Last Reviewed 01/18/19 @ 23:28 by Kasi Mensah MD) BRAEDEN (acute kidney injury) (Acute) Hyperkalemia (Acute) Peripheral vertigo, unspecified (Acute) Date of Admission: 01/18/19 Date of Discharge: 01/21/19 - Primary Discharge Diagnosis Active and Suspected Problems (Last Reviewed 01/18/19 @ 23:28 by Kasi Mensah MD) BRAEDEN (acute kidney injury) (Acute) Hyperkalemia (Acute) Peripheral vertigo, unspecified (Acute) - Secondary Discharge Diagnosis Chronic Problems (Last Reviewed 01/18/19 @ 23:28 by Kasi Mensah MD) Nonrheumatic aortic (valve) stenosis with insufficiency (Chronic) CAD (coronary artery disease) (Chronic) Secondary pulmonary arterial hypertension (Chronic) Essential (primary) hypertension (Chronic) Automatic implantable cardiac defibrillator in situ (Chronic 12/21/13) Acute kidney failure (Chronic) Atherosclerosis of coronary artery bypass graft without angina pectoris (Chronic) CABG: RIVERA-Distal LAD, SVG-Prox LAD, SVG-OM1, SVG-Left PDA 12/2001; Ischemic cardiomyopathy (Chronic) Chronic systolic congestive heart failure (Chronic) Dyspnea on exertion (Chronic) HLD (hyperlipidemia) (Chronic) Myocardial infarction (Chronic) H/O coronary artery bypass surgery (Chronic 12/02/01) CABG: RIVERA-Distal LAD, SVG-Prox LAD, SVG-OM1, SVG-Left PDA 12/2001; Hypercoagulable state, primary (Chronic) RBBB (right bundle branch block) (Chronic) NSTEMI (non-ST elevated myocardial infarction) (Chronic) Obesity (Chronic) Anti-phospholipid syndrome (Chronic) Hospital Course and Treatment Operations: None Summary of Care Provided: Patient is a 73-year-old lady with multiple comorbidities admitted with [facility]. Patient also reported having experienced diarrhea for prolonged period of time. Patient was found to have acute kidney injury with severe hyperkalemia. Treatment initiated in the ED and patient admitted to a monitored bed for subsequent management 1. Acute kidney injury secondary to severe dehydration from patient's diarrhea. Patient admitted to the intensive care unit because of the associated hyperkalemia managed with fluids. She was transferred from the intensive care unit to the progressive care unit once her condition stabilized. Kidney function had returned to baseline at the time of her discharge. 2. Chest pain elevated troponin milan patient with known coronary artery disease EKG obtained the day prior demonstrated paced rhythm. Cardiac enzymes trending up. Given patient significant past cardiac history consultation was placed to cardiology patient was managed conservatively 3. Hyperkalemia attributed to patient's medications. Patient was on Entresto in addition to potassium supplementation; treatment initiated in the emergency department monitored in the ICU potassium down to 4.8 from an admission level of 7.6 4. Diabetes mellitus type II uncontrolled with complications including diabetic neuropathy. Patient is on long acting as well as Accu-Cheks before meals and at bedtime and covered with sliding scale insulin 5. Ischemic cardiomyopathy status post AICD placement at [facility] on 12/2013. 6. Hypertension: Patient blood pressure on admission was low and still remains relatively low her antihypertensive medications subsequently held 7. CAD with previous [place] status post CABG on recommended medications 8. Antiphospholipid syndrome patient is on Coumadin 9. Paroxysmal atrial fibrillation rate controlled patient is on Coumadin 10. Depression patient is on SSRI 11. Gout patient is on allopurinol 12. Diabetic peripheral neuropathy patient is on Neurontin. 13. Chronic heart failure with reduced ejection fraction EF on echo obtained on 12/19 was 25%; Patient is on Lasix dose adjusted from 80 mg p.o. twice daily to 40 mg daily. Patient was also counseled on the need to restrict her fluid intake. 14. Dyslipidemia-patient is on statin therapy, continued at home dose 15. DVT prophylaxis patient is on warfarin Patient Problems: Active and Suspected Problems (Last Reviewed 01/18/19 @ 23:28 by Kasi Mensah MD) BRAEDEN (acute kidney injury) (Acute) Hyperkalemia (Acute) Peripheral vertigo, unspecified (Acute) Objective: GENERAL: cooperative HEENT: Atraumatic; EYES; Anicteric, NECK; supple, normal thyroid, RESPIRATORY: Diminished to auscultation bilaterally, CARDIOVASCULAR: Regular S1 S2, systolic murmur GI: soft, non-tender, normoactive bowel sounds, : No Renal angle tenderness; EXTREMITIES: No edema, NEURO: Awake; no lateralizing signs. SKIN: No Rash - Physical Exam Vital Signs Temp Pulse Resp BP Pulse Ox 98.2 F 75 16 125/57 H 97 01/21/19 08:30 01/21/19 08:45 01/21/19 08:30 01/21/19 08:45 01/21/19 08:30 Oxygen Flow Rate (L/min) 2 Oxygen Delivery Method Room Air Weight: 83 kg Body Mass Index (BMI) 34.6 Finger Stick Blood Glucose 119 Intake and Output for Last 24 Hours 01/19/19 01/20/19 01/21/19 23:59 23:59 23:59 Intake Total 1400 / 1400 1269 / 1269 1000 / 1000 Output Total 600 / 600 Balance 800 / 800 1269 / 1269 1000 / 1000 Laboratory Tests Past 24 Hrs 01/20/19 01/21/19 01/21/19 09:22 05:25 05:25 WBC 5.9 RBC 3.75 L Hgb 11.3 L Hct 34.6 L MCV 92.3 MCH 30.1 MCHC 32.7 RDW 15.7 H RDW Differential 51.4 H Plt Count 141 L MPV 11.6 Immature Gran % (Auto) 0.000 Neut % (Auto) 63.8 Lymph % (Auto) 20.7 Hudson % (Auto) 12.0 H Eos % (Auto) 3.0 Baso % (Auto) 0.5 Absolute Neuts (auto) 3.8 Absolute Lymphs (auto) 1.23 Total Counted Not Reportable PT 25.0 H INR 2.3 Sodium Potassium Chloride Carbon Dioxide Anion Gap BUN Creatinine Estim Creat Clear Calc Est GFR (MDRD) Af Amer Est GFR (MDRD) Non-Af BUN/Creatinine Ratio Glucose Calcium Troponin I 0.157 H 01/21/19 05:25 WBC RBC Hgb Hct MCV MCH MCHC RDW RDW Differential Plt Count MPV Immature Gran % (Auto) Neut % (Auto) Lymph % (Auto) Hudson % (Auto) Eos % (Auto) Baso % (Auto) Absolute Neuts (auto) Absolute Lymphs (auto) Total Counted PT INR Sodium 144 Potassium 4.2 Chloride 110 H Carbon Dioxide 28.0 Anion Gap 6 BUN 24 H Creatinine 0.79 Estim Creat Clear Calc 35.45 Est GFR (MDRD) Af Amer 91 Est GFR (MDRD) Non-Af 75 BUN/Creatinine Ratio 30.2 H Glucose 79 Calcium 8.3 L Troponin I POC Glucose 01/21/19 01/21/19 01/20/19 06:27 02:11 21:23 POC Glucose 87 156 H 237 H 01/20/19 01/20/19 16:52 11:20 POC Glucose 254 H 202 H Discharge Diet: 8 Cup Fluid Restriciton Discharge Activity: Return to Normal Activity, May not drive while taking narcotic pain medications. Home Medications: Medications to take at Discharge Ergocalciferol [Vitamin D] 50,000 unit PO QMONTH 05/09/16 Insulin Glargine,Hum.rec.anlog [Lantus] 50 unit SQ DAILY 05/09/16 Allopurinol [Zyloprim] 100 mg PO DAILY 08/29/17 nitroglycerin 0.4 mg sublingual tablet 0.4 mg SUBLINGUAL Q5M PRN 09/20/17 aspirin 81 mg tablet,delayed release 81 mg PO QHS 10/02/17 gabapentin 600 mg tablet 600 mg PO QDAY 04/01/18 Warfarin [Coumadin] 4 mg PO DAILY 04/26/18 Metformin HCl 500 mg PO DAILY #0 04/27/18 Colchicine [Colcrys] 0.6 mg PO DAILY PRN 09/02/18 Isosorbide Mononitrate [Isosorbide Mononitrate ER] 60 mg PO DAILY 09/02/18 Paroxetine HCl [Paxil] 20 mg PO QHS 09/02/18 Ranitidine [Zantac] 150 mg PO DAILY 09/02/18 Simvastatin [Zocor] 20 mg PO QHS 09/02/18 Ranolazine [Ranexa] 500 mg PO BID #60 tab 09/04/18 metoprolol tartrate 25 mg tablet 25 mg PO BID #180 tab 09/22/18 Furosemide [Lasix] 40 mg PO DAILY #30 tablet 01/21/19 proCHLORPERazine tablet [Compazine tablet] 5 mg PO TID PRN PRN #30 tablet 01/21/19 Following Prescrptions Were Given to Patient: Furosemide [Lasix] 40 mg PO DAILY #30 tablet proCHLORPERazine tablet [Compazine tablet] 5 mg PO TID PRN PRN #30 tablet PRN Reason: Nausea/Vomiting Primary Care Physician: Ranjan Hyatt Chi, MD [Primary Care Provider] - Please follow up with your Primary Care Physician in: in 5-7 days Please Follow Up With: Liseth Yee DO When: in 1-2 weeks Please Follow Up With: Marco Antonio Sherwood MD When: in 2-3 weeks Disposition: Home Minutes spent on discharge:: 32 Patient Condition:: Stable Medical Necessity - Tobacco Use Smoking Status: Never smoker Meaningful Use Info Meaningful Use Diagnoses (Choose all that apply): None applicable Code Visit Inpatient E&M: 89585 Disch Hosp
--- NOTE | 2019-01-22 13:55 | CASEMGMT ---
RN CM Discharge F/U Phone Call LACE: 12 Strata: 4 Discharge date: 01/21/19 Call date: 01/22/19 Call time: 1355 Attempted to reach pt without success at this time, message left for pt to call this RN CM back if/when able. SStaten RN CM Admission dx: Acute Hyperkalemia
== END 2019-01-21 10:42 | disposition home or self-care (01) | DRG 683 ==
LOC: ED 21:10 → ICU 22:50 → PCU 01-19 08:40
PROVIDERS: Family Medicine; Admitting Provider Hospitalist; Emergency Provider Emergency Medicine; Family Provider Family Medicine Geriatric Medicine; PCP Family Medicine Geriatric Medicine; Visit Provider Internal Medicine
DX: N17.9 Acute kidney failure, unspecified (principal); I50.22 Chronic systolic (congestive) heart failure; D68.61 Antiphospholipid syndrome; E87.5 Hyperkalemia; E86.0 Dehydration; E11.65 Type 2 diabetes mellitus with hyperglycemia; E11.42 Type 2 diabetes mellitus with diabetic polyneuropathy; I25.10 Atherosclerotic heart disease of native coronary artery without angina pectoris; E78.5 Hyperlipidemia, unspecified; I11.0 Hypertensive heart disease with heart failure; I27.21 Secondary pulmonary arterial hypertension; H81.399 Other peripheral vertigo, unspecified ear; E66.01 Morbid (severe) obesity due to excess calories; I25.2 Old myocardial infarction; K21.9 Gastro-esophageal reflux disease without esophagitis; M10.9 Gout, unspecified; G89.29 Other chronic pain; F32.9 Major depressive disorder, single episode, unspecified; I48.0 Paroxysmal atrial fibrillation; Z95.810 Presence of automatic (implantable) cardiac defibrillator; Z68.35 Body mass index [BMI] 35.0-35.9, adult; Z95.1 Presence of aortocoronary bypass graft; Z79.01 Long term (current) use of anticoagulants; Z71.3 Dietary counseling and surveillance
CPT/HCPCS: 36415; 80048; 82962; 83735; 84132; 84484; 85025; 85610; 93005; 94640; 97162; 97166; 97530; 97535; 97802; 99285; J7030; J7040; A4216; J0610; J2405

== ENCOUNTER → 2019-01-22 | Outpatient (CLI) | payer MEDICARE, SELFPAY ==
[2019-01-18 22:57] VITALS: BMI 34.6
[2019-01-22 17:38] LABS: Absolute Lymphocyte Count 0.91 X10^3/ul (0.83-4.51); Absolute Neutrophil Count 3.6 X10^3/uL (2.0-7.7); Basophil# 0.02 X10^3/uL; Basophil% 0.4 % (0-1); Eosinophil# 0.12 X10^3/uL; Eosinophils% 2.3 % (0-5); Hematocrit 33.7 % (37-47); Hemoglobin 10.7 g/dl (12.0-15.0); Lymphocyte # 0.91 X10^3/ul (4.0); Lymphocyte % 17.5 % (19-41); Mean Corp Hgb Conc 31.8 g/gl (32-36); Mean Corpuscular Hgb 29.8 pg (27.0-32.0); Mean Corpuscular Volume 93.9 fL (81-99); Mean Platelet Vol. 12.5 fl (6.2-12.0); Monocyte# 0.56 X10^3/uL; Monocyte% 10.8 % (0-10); Neutrophil # 3.57 X10^3/uL (2.7-7.7); Neutrophil % 68.8 % (47-70); Platelet Count 157 K/mm3 (150-450); RBC Distribution Width CV 16.1 % (11.6-14.6); RBC Distribution Width SD 52.8 fl (35.1-43.9); Red Blood Count 3.59 M/mm3 (4.2-5.4); White Blood Count 5.2 K/mm3 (4.4-11.0)
[2019-01-22 17:47] LABS: ALB/GLOB Ratio 0.8 RATIO (0.9-2.4); AST(SGOT) 19 U/L (15-37); Alanine Aminotransfer ALT/SGPT 27 U/L (13-56); Albumin, Serum 2.9 g/dL (3.2-5.0); Alkaline Phosphatase 85 U/L (45-117); Anion Gap 5 (5-15); BUN 24 mg/dL (7-18); BUN/Creat Ratio 24.7 RATIO (10-20); Calcium,Total 8.6 mg/dL (8.5-10.1); Chloride 107 mmol/L (98-107); Creatinine, Serum 0.97 mg/dL (0.55-1.02); EST Glomerular Filtration Rate 60 mL/min (>60); Est Glom Filt Rate - Afr Amer 72 mL/min (>60); Globulin 3.6 g/dL (2.2-4.2); Glucose 170 mg/dL (74-106); Potassium 4.5 mmol/L (3.5-5.1); Protein, Total 6.5 g/dL (6.4-8.2); Sodium Level 139 mmol/L (136-145)
[2019-01-22 17:49] LABS: POSITIVE COUNT NO; POSITIVE DIFFERENTIAL NO; POSITIVE MORPHOLOGY NO
== END | disposition home or self-care (01) ==
LOC: POLAB3 13:41
PROVIDERS: Family Provider Family Medicine Geriatric Medicine; PCP Family Medicine Geriatric Medicine; Visit Provider Family Medicine Geriatric Medicine
DX: I50.9 Heart failure, unspecified (principal)
CPT/HCPCS: 36415; 80053; 85025

== ENCOUNTER → 2019-02-11 | Outpatient (CLI) | payer MEDICARE, SELFPAY ==
[2019-02-04 14:26] VITALS: BMI 34.6
[2019-02-11 16:59] LABS: Anion Gap 8 (5-15); BUN 14 mg/dL (7-18); BUN/Creat Ratio 14.8 RATIO (10-20); Calcium,Total 8.5 mg/dL (8.5-10.1); Chloride 103 mmol/L (98-107); Creatinine, Serum 0.94 mg/dL (0.55-1.02); EST Glomerular Filtration Rate 62 mL/min (>60); Est Glom Filt Rate - Afr Amer 75 mL/min (>60); Glucose 216 mg/dL (74-106); Sodium Level 141 mmol/L (136-145)
== END | disposition home or self-care (01) ==
LOC: POLAB3 15:23
PROVIDERS: Family Provider Family Medicine Geriatric Medicine; PCP Family Medicine Geriatric Medicine; Visit Provider Family Medicine Geriatric Medicine
DX: I50.23 Acute on chronic systolic (congestive) heart failure (principal)
CPT/HCPCS: 36415; 80048

== ENCOUNTER → 2019-02-18 | Outpatient (CLI) | payer MEDICARE, SELFPAY ==
[2019-02-04 14:26] VITALS: BMI 34.6
[2019-02-18 17:32] LABS: Anion Gap 7 (5-15); BUN 14 mg/dL (7-18); BUN/Creat Ratio 14.3 RATIO (10-20); Calcium,Total 8.6 mg/dL (8.5-10.1); Chloride 103 mmol/L (98-107); Creatinine, Serum 0.98 mg/dL (0.55-1.02); EST Glomerular Filtration Rate 59 mL/min (>60); Est Glom Filt Rate - Afr Amer 71 mL/min (>60); Glucose 235 mg/dL (74-106); Potassium 4.2 mmol/L (3.5-5.1); Sodium Level 138 mmol/L (136-145)
== END | disposition home or self-care (01) ==
LOC: POLAB3 14:40
PROVIDERS: Family Provider Family Medicine Geriatric Medicine; PCP Family Medicine Geriatric Medicine; Visit Provider Family Medicine Geriatric Medicine
DX: I50.23 Acute on chronic systolic (congestive) heart failure (principal)
CPT/HCPCS: 36415; 80048

== ENCOUNTER → 2019-02-26 | Outpatient (CLI) | payer MEDICARE, SELFPAY ==
[2019-02-04 14:26] VITALS: BMI 34.6
[2019-02-26 17:21] LABS: Absolute Lymphocyte Count 0.89 X10^3/ul (0.83-4.51); Absolute Neutrophil Count 4.9 X10^3/uL (2.0-7.7); Basophil# 0.03 X10^3/uL; Basophil% 0.5 % (0-1); Eosinophil# 0.07 X10^3/uL; Eosinophils% 1.1 % (0-5); Hematocrit 37.2 % (37-47); Hemoglobin 11.8 g/dl (12.0-15.0); Lymphocyte # 0.89 X10^3/ul (4.0); Lymphocyte % 13.7 % (19-41); Mean Corp Hgb Conc 31.7 g/gl (32-36); Mean Corpuscular Hgb 29.4 pg (27.0-32.0); Mean Corpuscular Volume 92.5 fL (81-99); Mean Platelet Vol. 11.9 fl (6.2-12.0); Monocyte# 0.56 X10^3/uL; Monocyte% 8.6 % (0-10); Neutrophil # 4.93 X10^3/uL (2.7-7.7); Neutrophil % 75.9 % (47-70); Platelet Count 271 K/mm3 (150-450); RBC Distribution Width CV 14.2 % (11.6-14.6); RBC Distribution Width SD 48.1 fl (35.1-43.9); Red Blood Count 4.02 M/mm3 (4.2-5.4); White Blood Count 6.5 K/mm3 (4.4-11.0)
[2019-02-26 17:24] LABS: POSITIVE COUNT NO; POSITIVE DIFFERENTIAL NO; POSITIVE MORPHOLOGY NO
[2019-02-26 17:38] LABS: Anion Gap 6 (5-15); BUN 21 mg/dL (7-18); BUN/Creat Ratio 16.4 RATIO (10-20); Calcium,Total 8.7 mg/dL (8.5-10.1); Chloride 101 mmol/L (98-107); Creatinine, Serum 1.28 mg/dL (0.55-1.02); EST Glomerular Filtration Rate 43 mL/min (>60); Est Glom Filt Rate - Afr Amer 52 mL/min (>60); Glucose 232 mg/dL (74-106); Potassium 4.7 mmol/L (3.5-5.1); Sodium Level 138 mmol/L (136-145)
== END | disposition home or self-care (01) ==
LOC: POLAB3 14:50
PROVIDERS: Family Provider Family Medicine Geriatric Medicine; PCP Family Medicine Geriatric Medicine; Visit Provider Family Medicine Geriatric Medicine
DX: K64.9 Unspecified hemorrhoids (principal)
CPT/HCPCS: 36415; 80048; 85025

== ENCOUNTER → 2019-03-11 | Outpatient (CLI) | payer MEDICARE, SELFPAY ==
[2019-02-04 14:26] VITALS: BMI 34.6
[2019-03-11 18:13] LABS: Absolute Lymphocyte Count 0.79 X10^3/ul (0.83-4.51); Absolute Neutrophil Count 3.4 X10^3/uL (2.0-7.7); Basophil# 0.02 X10^3/uL; Basophil% 0.4 % (0-1); Eosinophils% 2.1 % (0-5); Hematocrit 39.8 % (37-47); Hemoglobin 12.6 g/dl (12.0-15.0); Lymphocyte # 0.79 X10^3/ul (4.0); Lymphocyte % 16.4 % (19-41); Mean Corp Hgb Conc 31.7 g/gl (32-36); Mean Corpuscular Hgb 28.7 pg (27.0-32.0); Mean Corpuscular Volume 90.7 fL (81-99); Mean Platelet Vol. 12.9 fl (6.2-12.0); Monocyte# 0.47 X10^3/uL; Monocyte% 9.7 % (0-10); Neutrophil # 3.44 X10^3/uL (2.7-7.7); Neutrophil % 71.2 % (47-70); Platelet Count 184 K/mm3 (150-450); RBC Distribution Width CV 14.1 % (11.6-14.6); RBC Distribution Width SD 46.3 fl (35.1-43.9); Red Blood Count 4.39 M/mm3 (4.2-5.4); White Blood Count 4.8 K/mm3 (4.4-11.0)
[2019-03-11 18:17] LABS: POSITIVE COUNT NO; POSITIVE DIFFERENTIAL NO; POSITIVE MORPHOLOGY NO
[2019-03-11 18:33] LABS: Vitamin D,25 Hydroxy 23.7 ng/mL (29.95-100.01)
[2019-03-11 18:40] LABS: ALB/GLOB Ratio 0.8 RATIO (0.9-2.4); AST(SGOT) 22 U/L (15-37); Alanine Aminotransfer ALT/SGPT 22 U/L (13-56); Albumin, Serum 3.2 g/dL (3.2-5.0); Alkaline Phosphatase 92 U/L (45-117); Anion Gap 8 (5-15); BUN 24 mg/dL (7-18); Calcium,Total 8.6 mg/dL (8.5-10.1); Chloride 102 mmol/L (98-107); EST Glomerular Filtration Rate 47 mL/min (>60); Est Glom Filt Rate - Afr Amer 56 mL/min (>60); Globulin 3.9 g/dL (2.2-4.2); Glucose 282 mg/dL (74-106); Potassium 4.3 mmol/L (3.5-5.1); Protein, Total 7.1 g/dL (6.4-8.2); Sodium Level 140 mmol/L (136-145); Thyroid Stim Hormone (TSH) 0.93 uIU/mL (0.358-3.74)
== END | disposition home or self-care (01) ==
LOC: POLAB3 11:44
PROVIDERS: Family Provider Family Medicine Geriatric Medicine; PCP Family Medicine Geriatric Medicine; Visit Provider Family Medicine Geriatric Medicine
DX: E11.65 Type 2 diabetes mellitus with hyperglycemia (principal); E55.9 Vitamin D deficiency, unspecified; I10 Essential (primary) hypertension; M10.9 Gout, unspecified
CPT/HCPCS: 36415; 80053; 82306; 84443; 84550; 85025

== ENCOUNTER → 2019-06-10 16:23 | Outpatient (CLI) | payer MEDICARE, SELFPAY ==
[2019-02-04 14:26] VITALS: BMI 34.6
[2019-06-10 16:57] LABS: Absolute Lymphocyte Count 0.93 X10^3/uL (0.83-4.51); Absolute Neutrophil Count 4.3 X10^3/uL (2.0-7.7); Basophil# 0.05 X10^3/uL; Basophil% 0.9 % (0-1); Eosinophils% 1.7 % (0-5); Hematocrit 42.4 % (37-47); Hemoglobin 13.4 g/dL (12.0-15.0); Lymphocyte # 0.93 X10^3/ul (4.0); Lymphocyte % 15.9 % (19-41); Mean Corp Hgb Conc 31.6 g/dL (32-36); Mean Corpuscular Hgb 28.9 pg (27.0-32.0); Mean Corpuscular Volume 91.6 fL (81-99); Mean Platelet Vol. 12.9 fl (6.2-12.0); Monocyte# 0.48 X10^3/uL; Monocyte% 8.2 % (0-10); NRBC Flagged by Analyzer 0 % (0-5); Neutrophil # 4.28 X10^3/uL (2.7-7.7); Neutrophil % 73.1 % (47-70); Platelet Count 192 K/mm3 (150-450); RBC Distribution Width CV 16.3 % (11.6-14.6); RBC Distribution Width SD 55.2 fl (35.1-43.9); Red Blood Count 4.63 M/mm3 (4.2-5.4); White Blood Count 5.9 K/mm3 (4.4-11.0)
[2019-06-10 17:17] LABS: Vitamin D,25 Hydroxy 28.7 ng/mL (29.95-100.01)
[2019-06-10 17:24] LABS: ALB/GLOB Ratio 0.8 RATIO (0.9-2.4); AST(SGOT) 15 U/L (15-37); Alanine Aminotransfer ALT/SGPT 26 U/L (13-56); Albumin, Serum 3.4 g/dL (3.2-5.0); Alkaline Phosphatase 90 U/L (45-117); Anion Gap 5 (5-15); BUN 17 mg/dL (7-18); BUN/Creat Ratio 14.4 RATIO (10-20); Calcium,Total 8.8 mg/dL (8.5-10.1); Chloride 99 mmol/L (98-107); Creatinine, Serum 1.18 mg/dL (0.55-1.02); EST Glomerular Filtration Rate 48 mL/min (>60); Est Glom Filt Rate - Afr Amer 58 mL/min (>60); Glucose 264 mg/dL (74-106); Potassium 4.4 mmol/L (3.5-5.1); Protein, Total 7.4 g/dL (6.4-8.2); Sodium Level 136 mmol/L (136-145); Thyroid Stim Hormone (TSH) 1.09 uIU/mL (0.358-3.74); Uric Acid 7.1 mg/dL (2.6-6.0)
== END ==
PROVIDERS: Family Provider Family Medicine Geriatric Medicine; PCP Family Medicine Geriatric Medicine; Visit Provider Family Medicine Geriatric Medicine
DX: E11.9 Type 2 diabetes mellitus without complications (principal); E55.9 Vitamin D deficiency, unspecified; I10 Essential (primary) hypertension; M10.9 Gout, unspecified
CPT/HCPCS: 36415; 80053; 82306; 84443; 84550; 85025

== ENCOUNTER → 2019-08-11 17:18 | Outpatient (CLI) | payer MEDICARE, SELFPAY ==
[2019-07-03 13:28] VITALS: BMI 35.7
--- NOTE | 2019-08-11 17:50 | RAD_ITS ---
STUDY: X-RAY CHEST REASON FOR EXAM: Female, 73 years old. Short of breath, cough and fatigue. TECHNIQUE: Frontal and lateral views of the chest. COMPARISON: 09/04/2018. FINDINGS: Elevated right hemidiaphragm, stable. Mild scarring in the left lung base, stable. Left lung is clear. There is mild cardiac enlargement. Previous CABG. Pacemaker is seen with leads terminating in the right atrium and right ventricle. Normal mediastinum and april. Normal visualized pulmonary arteries. Normal visualized aortic arch and descending thoracic aorta. There is demineralization of the osseous structures. Stable previous kyphoplasty in the upper lumbar spine. Stable compression fracture of the lower thoracic spine. Normal visualized ribs, clavicles, and shoulders. There is no demonstrated abnormality of the visualized soft tissue structures of the upper abdomen. RAD/Chest PA and Lateral IMPRESSION: No change and no acute abnormality. Electronically Signed: Antonio Hebert MD at 20:24 EST , Service support ,
== END ==
PROVIDERS: Family Provider Family Medicine Geriatric Medicine; PCP Family Medicine Geriatric Medicine; Referring Provider Family Medicine Geriatric Medicine; Visit Provider Family Medicine Geriatric Medicine
DX: R06.02 Shortness of breath (principal); R68.83 Chills (without fever)
CPT/HCPCS: 71046; 87633

== ENCOUNTER 2019-08-31 21:38 | Emergency (ER) | payer MEDICARE, SELFPAY ==
[2019-07-03 13:28] VITALS: BMI 35.7
[2019-08-31 21:41] VITALS: BP 122/66; BP 122/99; PULSE 76; RESP 18; RESP 20; TEMP 36.7; O2SAT 92; BMI 32.3
--- NOTE | 2019-08-31 21:52 | CT_ITS ---
ACR Level 3 findings have been noted. An addendum which confirms receipt of the report will follow. HISTORY: S/P FALL HITTING HEAD, ON THINNERS ADDITIONAL HISTORY: None provided. COMPARISON: 01/14/2012 TECHNIQUE: Axial, coronal and sagittal CT images were obtained of the brain without intravenous contrast. Number of images including paperwork: 239. A radiation dose optimization technique was used for this scan. FINDINGS: BRAIN PARENCHYMA: No acute hemorrhage or mass. No definite acute infarct; MRI more sensitive. White matter hypodensity is nonspecific but most commonly seen with chronic ischemic changes. Generalized atrophy. Somewhat prominent appearance of the region of the of the left ICA terminus. EXTRA-AXIAL SPACES: No acute hemorrhage. VENTRICULAR SYSTEM: No hydrocephalus. PARANASAL SINUSES AND MASTOIDS: No air-fluid level in the imaged extent. ORBITS: Unremarkable imaged extent. SKELETON AND SOFT TISSUES: Calvarium intact. ASPECTS score: Not applicable. CT/Brain/Head without Contrast IMPRESSION: 1. No acute intracranial abnormality. 2. Chronic involutional and white matter changes. 3. Somewhat prominent appearance of the region of the of the left ICA terminus. Follow-up CTA or MRA brain recommended to assess for underlying aneurysm. Individualized dose optimization techniques were used for this CT. at 6455 Reported and signed by: Savanna Wilder MD Electronically Signed: Savanna Wilder MD at 22:57 EST Tel , Service support ,
--- NOTE | 2019-08-31 21:53 | EKG12_ITS ---
Test Reason : FALL Blood Pressure : / mmHG Vent. Rate : 077 BPM Atrial Rate : 077 BPM P-R Int : 128 ms QRS Dur : 170 ms QT Int : 524 ms P-R-T Axes : 026 -80 087 degrees QTc Int : 592 ms Atrial-sensed ventricular-paced rhythm Biventricular pacemaker detected Abnormal ECG Confirmed by SYDNEE SALGADO, MARCO ANTONIO ([id number]), desk editor ERLIN LLOYD ([id number]) on 09/03/2019 11:17:05 AM Referred By: RUPINDER Confirmed By:MARCO ANTONIO RANDHAWA MD
--- NOTE | 2019-08-31 21:55 | RAD_ITS ---
HISTORY: FALL, RIGHT HIP PAIN, PATIENT IN TRACTION DEVICE, X-RAYS WERE OK'D PER DR. BUCIO ADDITIONAL HISTORY: None provided. TECHNIQUE: AP and lateral views of the right femur Number of images including paperwork: 4 COMPARISON: None FINDINGS: BONES: Completely displaced, spiral spiral fracture of the proximal diaphysis of the right femur with approximate 2 cm of overriding. Mineralization appears decreased. JOINTS: No subluxation. Degenerative changes of the hip and knee. SOFT TISSUES: No distinct foreign body. Vascular calcifications. RAD/Femur Min 2 Views IMPRESSION: Displaced right proximal femur fracture. There at 2309 Reported and signed by: Savanna Wilder MD Electronically Signed: Savanna Wilder MD at 23:09 EST Tel , Service support ,
--- NOTE | 2019-08-31 21:56 | ED.VIS.GEN ---
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 She states was deformity to her leg. She was unable to move. He arrived by ambulance. She states she did hit her head. She was dazed and has headache. She is on Coumadin. She is on Coumadin because family history of blood clots. She denies history of atrial fibrillation, pulmonary embolus or DVT. She denies ocular, visual auditory symptoms. Denies neck pain. Denies paresthesia, anesthesia motor gross upper extremities or left lower extremity. Her only complaint with regards to the right lower extremity is pain. She denies hematemesis, melena medication. She denies cardiac respiratory symptoms. Prior similar symptoms: No Recent Illness/Hospitalization: No - Past Medical History (1) Anti-phospholipid syndrome Status: Chronic (2) Atherosclerosis of coronary artery bypass graft without angina pectoris Status: Chronic Comment: CABG: RIVERA-Distal LAD, SVG-Prox LAD, SVG-OM1, SVG-Left PDA 12/2001 (3) Diastolic dysfunction Status: Chronic (4) Essential (primary) hypertension Status: Chronic (5) HLD (hyperlipidemia) Status: Chronic (6) Ischemic cardiomyopathy Status: Chronic (7) Nonrheumatic aortic (valve) stenosis with insufficiency Status: Chronic (8) Paroxysmal atrial fibrillation Status: Chronic (9) Presence of biventricular implantable cardioverter-defibrillator (ICD) Status: Chronic (10) RBBB (right bundle branch block) Status: Chronic (11) Secondary pulmonary arterial hypertension Status: Chronic (12) NSTEMI (non-ST elevated myocardial infarction) Status: Resolved Past Medical History - Allergies and Home Meds Allergies/Adverse Reactions: Allergies latex Allergy (Severe, Verified 08/31/19 21:40) Swelling Primary Care Physician: Ranjan Hyatt Chi, MD [Primary Care Provider] - Prior records reviewed: Yes Surgical History: appendectomy, cholecystectomy, coronary bypass surgery, hysterectomy, pacemaker implantation Lives: Alone Smoking Status: Never smoker Alcohol: None Drugs: None - Family History Maternal Family History: Family History (Last Reviewed 07/03/19 @ 13:44 by Marco Antonio Sherwood MD) Mother CAD (coronary artery disease) Myocardial infarction, Onset Age: 62 Brother Myocardial infarction CAD (coronary artery disease) Sister Bone cancer Sister CAD (coronary artery disease) Myocardial infarction Hypertension Family History: Reports: Heart Disease Paternal Family History: Family History (Last Reviewed 07/03/19 @ 13:44 by Marco Antonio Sherwood MD) Mother CAD (coronary artery disease) Myocardial infarction, Onset Age: 62 Brother Myocardial infarction CAD (coronary artery disease) Sister Bone cancer Sister CAD (coronary artery disease) Myocardial infarction Hypertension Family History: Reports: Heart Disease, - - Father with anti-phospholipid syndrome Sibling Family History: Family History (Last Reviewed 07/03/19 @ 13:44 by Marco Antonio Sherwood MD) Mother CAD (coronary artery disease) Myocardial infarction, Onset Age: 62 Brother Myocardial infarction CAD (coronary artery disease) Sister Bone cancer Sister CAD (coronary artery disease) Myocardial infarction Hypertension Family History: Reports: Cancer, Heart Disease, - Review of Systems General: Denies: Chills, Fever, Malaise Eyes: Denies: Visual changes - bilaterally, Blurred Vision - bilaterally, Diplopia ENT: Reports: Bilateral ear pain, - - Denies ear pain, decreased hearing or ringing in her ears.. Denies: Rhinorrhea, Sore throat Cardiovascular: Denies: Chest pain, Palpitations Respiratory: Reports: Dyspnea, Orthopnea. Denies: Cough, Sputum, Dyspnea on exertion, Paroxysmal nocturnal dyspnea Gastrointestinal: Denies: Abdominal pain, Nausea, Vomiting, Diarrhea, Melena, Hematochezia Genitourinary: Denies: Dysuria, Hematuria, Frequency Musculoskeletal: Reports: Swelling, Extremity Pain. Denies: Myalgias, Arthralgias, Neck pain, Back pain Skin: Denies: Rash, Wounds Neurological: Reports: Headache. Denies: Weakness, Parasthesia, Numbness Endocrine: Denies: Polyuria, Polydipsia Hematologic: Reports: Easy bruising. Denies: Easy bleeding Allergy: Denies: Uticaria, Swelling of the mouth Physical Exam Vital Signs/Narrative: Vital Signs Temp Pulse Resp BP Pulse Ox 08/31/19 21:41 98.0 F 76 18 122/99 H 92 Inital Vital Signs reviewed: Yes General: Well nourished, Well developed, No Acute Distress Head: Normocephalic, Atraumatic Eyes: Perrl, EOMI. Negative for: Pale conjunctiva, Scleral icterus ENT: Moist mucous membranes, No rhinorrhea Neck: Supple, Nontender, No lymphadenopathy, No JVD Cardiovascular: Regular rate, Regular rhythm, No murmurs, Normal S1, Normal S2 Respiratory: No distress, CTA bilaterally, Chest nontender Abdomen: Soft, Nontender, Nondistended, Normal bowel sounds, No masses Back: Nontender, Normal Inspection Extremities: No edema, - - Deformity is swelling of the right thigh. DP and PT pulses are palpable. Skin: Normal color, No rash Neurological: Alert, Oriented x3, Cranial nerves II-XII grossly intact, Normal Strength, Normal Sensation Psychological: Normal affect, Normal Mood Diagnostic/Tx/Re-eval Chest X-Ray - ED: Read by ED Physician, - - View x-ray of the right femur was obtained. There appears to be an spiral infra trochanteric fracture right femur. Hip x-ray was added. There is a fracture line that migrates proximally towards the femoral neck. Single view chest x-ray reveals elevated right hemidiaphragm. There is bichamber pacemaker noted. Sternal wires are noted. The chest x-ray is unchanged from August 11, 2019. Impressions Brain CT 08/31/19 21:52 IMPRESSION: 1. No acute intracranial abnormality. 2. Chronic involutional and white matter changes. 3. Somewhat prominent appearance of the region of the of the left ICA terminus. Follow-up CTA or MRA brain recommended to assess for underlying aneurysm. Individualized dose optimization techniques were used for this CT. at 2257 Reported and signed by: Savanna Wilder MD Electronically Signed: Savanna Wilder MD at 22:57 EST Tel , Service support , ADDENDUM: 08/31/19 0263 IMPRESSION: 1. No acute intracranial abnormality. 2. Chronic involutional and white matter changes. 3. Somewhat prominent appearance of the region of the of the left ICA terminus. Follow-up CTA or MRA brain recommended to assess for underlying aneurysm. Individualized dose optimization techniques were used for this CT. at 2257 Reported and signed by: Savanna Wilder MD N.B. : PIYUSH Wilson, confirmed on 08/31/2019 22:59:39 (ET) that the referring physician received the radiology report. Electronically Signed: Savanna Wilder MD at 22:57 EST Tel , Service support , Femur X-Ray 08/31/19 21:55 IMPRESSION: Displaced right proximal femur fracture. There at 2308 Reported and signed by: Savanna Wilder MD Electronically Signed: Savanna Wilder MD at 23:09 EST Tel , Service support , Chest X-Ray 08/31/19 22:40 IMPRESSION: No acute cardiopulmonary abnormality. at 2303 Reported and signed by: Savanna Wilder MD Electronically Signed: Savanna Wilder MD at 23:07 EST Tel , Service support , 08/31/19 21:52 Brain/Head without Contrast [CT] Stat 08/31/19 21:55 Femur Min 2 Views [RAD] Stat 08/31/19 22:40 Chest 1 View (Portable) [RAD] Stat Laboratory Results 08/31/19 08/31/19 08/31/19 22:15 22:15 22:15 WBC 6.0 RBC 4.38 Hgb 12.8 Hct 39.8 MCV 90.9 MCH 29.2 MCHC 32.2 RDW Std Deviation 47.4 H RDW Coeff of Enzo 14.4 Plt Count 172 MPV 13.0 H Immature Gran % (Auto) 0.500 Neut % (Auto) 77.5 H Lymph % (Auto) 12.3 L Todd % (Auto) 8.0 Eos % (Auto) 1.2 Baso % (Auto) 0.5 Absolute Neuts (auto) 4.7 Absolute Lymphs (auto) 0.74 L Nucleated RBC % 0 PT 25.3 H INR 2.3 APTT 46.5 H Sodium 141 Potassium 3.6 Chloride 100 Carbon Dioxide 34.0 H Anion Gap 7 BUN 12 Creatinine 1.07 H Estim Creat Clear Calc 40.88 Est GFR (MDRD) Af Amer 64 Est GFR (MDRD) Non-Af 53 L BUN/Creatinine Ratio 11.2 Glucose 255 H Calcium 8.6 CBC and basic metabolic panel unremarkable. INR is 2.3. - EKG Initial EKG Interpretation: - - Atrial sensed ventricular paced rhythm with a rate of 77. DC interval 128 ms. QRS duration 170 ms. QT duration 524 ms. The EKG is unchanged from prior and unchanged from EKG obtained prehospital. - Medical Decision Making Patient has obvious deformity. Will obtain appropriate blood work for risk ratification and obtain x-ray of the femur to determine extent of injury. CT of the head because of headache on Coumadin to rule out intracranial bleed. Because she is dyspneic chest x-ray was obtained. Will type and screen patient as well. Patient was seen by Dr. Prashanth Doan for left elbow fracture will contact him since he is on-call for orthopedics. CT of the head was reviewed by me and there is no evidence of intracranial bleed. Dr. Prashanth Doan was made aware of patient's past medical history, x-ray findings. Request admission to hospitalist for risk stratification See the call at [phone]. Dr. Prashanth Doan recommended transfer to large facility because of the fracture line that extends possibly up to the femoral neck. She requested [facility]. Morton also informed there are no beds at [facility], [facility] and [facility] she was informed there is no beds. Will check [facility]. ED Disposition - Plan for ED Patient: Diagnosis: Displaced subtrochanteric fracture of right femur, Closed head injury, FDC current use of anticoagulant, History of ischemic cardiomyopathy Referrals: Ranjan Hyatt Chi, MD [Primary Care Provider] -
[2019-08-31] MEDS: Ondansetron 4 MG/2 ML Vial IV (22:12)
[2019-08-31] MEDS: Morphine 4 MG/ML Syringe IV ×2 (22:12→23:05)
--- NOTE | 2019-08-31 22:40 | RAD_ITS ---
HISTORY: FALL, PAIN ADDITIONAL HISTORY: None provided. TECHNIQUE: Frontal chest radiograph. Number of images including paperwork: 1 COMPARISON: 08/11/2019 FINDINGS: LUNGS AND PLEURA: No consolidation, mass or pleural effusion. Linear opacities on the right may be related to subsegmental atelectasis and/or scarring. Elevated right hemidiaphragm appears similar. CARDIAC SILHOUETTE: Stably enlarged. MEDIASTINUM AND LILLIAN: Stable. UPPER ABDOMEN: Right upper quadrant surgical clips. SKELETON AND SOFT TISSUES: No acute findings. Degenerative changes. OTHER DEVICES AND HARDWARE: Biventricular ICD with left-sided generators. Sternal wires. RAD/Chest 1 View (Portable) IMPRESSION: No acute cardiopulmonary abnormality. at 3980 Reported and signed by: Savanna Wilder MD Electronically Signed: Savanna Wilder MD at 23:07 EST Tel , Service support ,
[2019-08-31 22:50] LABS: Anion Gap 7 (5-15); BUN 12 mg/dL (7-18); BUN/Creat Ratio 11.2 RATIO (10-20); Calcium,Total 8.6 mg/dL (8.5-10.1); Chloride 100 mmol/L (98-107); Creatinine, Serum 1.07 mg/dL (0.55-1.02); EST Glomerular Filtration Rate 53 mL/min (>60); Est Glom Filt Rate - Afr Amer 64 mL/min (>60); Estimated Creatinine Clearance 40.88 ml/min; Glucose 255 mg/dL (74-106); Potassium 3.6 mmol/L (3.5-5.1); Sodium Level 141 mmol/L (136-145)
[2019-08-31 22:59] LABS: Absolute Lymphocyte Count 0.74 X10^3/uL (0.83-4.51); Absolute Neutrophil Count 4.7 X10^3/uL (2.0-7.7); Basophil# 0.03 X10^3/uL; Basophil% 0.5 % (0-1); Eosinophil# 0.07 X10^3/uL; Eosinophils% 1.2 % (0-5); Hematocrit 39.8 % (37-47); Hemoglobin 12.8 g/dL (12.0-15.0); Lymphocyte # 0.74 X10^3/ul (4.0); Lymphocyte % 12.3 % (19-41); Mean Corp Hgb Conc 32.2 g/dL (32-36); Mean Corpuscular Hgb 29.2 pg (27.0-32.0); Mean Corpuscular Volume 90.9 fL (81-99); Monocyte# 0.48 X10^3/uL; NRBC Flagged by Analyzer 0 % (0-5); Neutrophil # 4.68 X10^3/uL (2.7-7.7); Neutrophil % 77.5 % (47-70); Platelet Count 172 K/mm3 (150-450); RBC Distribution Width CV 14.4 % (11.6-14.6); RBC Distribution Width SD 47.4 fl (35.1-43.9); Red Blood Count 4.38 M/mm3 (4.2-5.4)
[2019-08-31 23:04] VITALS: BP 103/52; PULSE 68; RESP 20; O2SAT 98
[2019-08-31 23:05] LABS: International Normalized Ratio 2.3; Prothrombin Time (Protime)PT. 25.3 SECONDS (11.7-14.9)
[2019-08-31 23:06] LABS: Partial Thromboplast Time 46.5 Seconds (24.1-36.2)
[2019-09-01 01:04] VITALS: BP 95/59; PULSE 68; PULSE 69; RESP 18; O2SAT 94
[2019-09-01] MEDS: fentaNYL 100 MCG/2 ML Ampul 25 MCG IV (03:25)
[2019-09-01 03:26] VITALS: BP 115/66; PULSE 70; RESP 15; O2SAT 95
== END 2019-09-01 03:32 | disposition short-term general hospital (02) ==
PROVIDERS: Emergency Medicine; Emergency Provider Emergency Medicine; Family Provider Family Medicine Geriatric Medicine; PCP Family Medicine Geriatric Medicine
DX: S72.21XA Displaced subtrochanteric fracture of right femur, initial encounter for closed fracture (principal); S09.90XA Unspecified injury of head, initial encounter; I25.5 Ischemic cardiomyopathy; J98.6 Disorders of diaphragm; Z79.01 Long term (current) use of anticoagulants; W01.0XXA Fall on same level from slipping, tripping and stumbling without subsequent striking against object, initial encounter; Y93.01 Activity, walking, marching and hiking; Y92.9 Unspecified place or not applicable; D68.61 Antiphospholipid syndrome; I25.10 Atherosclerotic heart disease of native coronary artery without angina pectoris; I10 Essential (primary) hypertension; I35.2 Nonrheumatic aortic (valve) stenosis with insufficiency; I48.0 Paroxysmal atrial fibrillation; I45.10 Unspecified right bundle-branch block; I27.21 Secondary pulmonary arterial hypertension; I25.2 Old myocardial infarction; E78.5 Hyperlipidemia, unspecified; Z82.49 Family history of ischemic heart disease and other diseases of the circulatory system; Z95.1 Presence of aortocoronary bypass graft; Z79.82 Long term (current) use of aspirin; Z79.899 Other long term (current) drug therapy
CPT/HCPCS: 51702; 70450; 71045; 73552; 80048; 85025; 85610; 85730; 93005; 96374; 96375; 96376; 99285; A4216; J2405